=== PATIENT | male | born 1955 | race Caucasian/White ===

== ENCOUNTER 2017-04-07 16:57 | Inpatient (IN) | payer OTHER ==
[~2017-04-07] VITALS: Ht 157.5 cm; Wt 68.0 kg
[2017-04-07] VITALS (26 sets, daily range): BP systolic 66–152; BP diastolic 43–73; PULSE 82–135; RESP 20–29; Ht 157.5 cm; Wt 68.0 kg
[2017-04-07] MEDS ORDERED: SOD CHLORIDE 0.9% 1,000 ML IV ONE ×2 (19:00→20:30)
[2017-04-07] MEDS ORDERED: VANCOMYCIN IV PER PHARMACY XX SCH (19:30)
[2017-04-07] MEDS ORDERED: NORepinephrine 8MG/250 ML (PMX 250 ML ONE (19:31)
[2017-04-07] MEDS ORDERED: NORepinephrine 8MG/250 ML (PMX 250 ML IV SCH (20:00)
[2017-04-07 20:02] LABS: AADO2 Arterial 437.1 mmHg (7.0-24.0); Arterial COHb 0.2 % (0.0-3.0); Arterial Fraction of Oxyhgb 98.5 % (93.0-99.0); Arterial HCO3 19.6 mmol/L (22.0-26.0); Arterial MetHb 0.2 % (0.0-1.5); Arterial Total Hemglobin 9.5 g/dl (12.0-18.0); MODE VENT - AC
[2017-04-07] MEDS ORDERED: VANCOMYCIN 1.25 GM in SOD CHLORIDE 0.9% 250 ML IVPB SCH (20:30)
[2017-04-07 20:51] LABS: HEMATOCRIT 26.8 % (42.0-52.0); HEMOGLOBIN 8.5 g/dl (14.0-18.0); MEAN CORPUSCULAR HEMOGLOBIN 28.2 pg (29.0-33.0); MEAN CORPUSCULAR HGB CONC 31.7 g/dl (32.0-37.0); MEAN PLATELET VOLUME 10.2 fl (7.4-10.4); PLATELET COUNT 340 10^3/UL (140-415); POSITIVE DIFF @See below; RED BLOOD COUNT 3.01 10^6/ul (4.70-6.10); RED CELL DISTRIBUTION WIDTH 15.6 % (11.5-14.5); WHITE BLOOD COUNT 22.1 10^3/ul (4.8-10.8)
[2017-04-07 21:04] LABS: ALBUMIN 2.3 g/dl (3.3-4.9); ALBUMIN/GLOBULIN RATIO 0.53; CALCIUM 9.1 mg/dl (8.4-10.2); CREATININE 1.18 mg/dl (0.61-1.24); MAGNESIUM 1.8 mg/dl (1.7-2.5); POTASSIUM 5.1 mmol/L (3.5-5.1); TOTAL PROTEIN 6.6 g/dl (6.1-8.1)
[2017-04-07 21:35] LABS: THYROID STIMULATING HORMONE 3.78 MIU/L (0.465-4.680)
[2017-04-07 22:04] LABS: AADO2 Arterial 460.5 mmHg (7.0-24.0); Allen Test ACCEPTAB; Arterial Base Excess -10.4 mmol/L (-3.0-3); Arterial COHb 0.3 % (0.0-3.0); Arterial Fraction of Oxyhgb 98.1 % (93.0-99.0); Arterial MetHb 0.3 % (0.0-1.5); Arterial Total Hemglobin 11.3 g/dl (12.0-18.0); Blood Gas Low PEEP Setting 0 cmH2O; MODE VENT - AC
[2017-04-07 22:26] LABS: EOSINOPHILS # 0.7 10^3/ul (0.0-0.5); EOSINOPHILS % (M) 3 % (0.0-7.0); LYMPHOCYTES # 1.5 10^3/ul (0.8-2.9); MONOCYTE # 0.2 10^3/ul (0.3-0.9); MONOCYTES % (M) 1 % (0-11)
[2017-04-07 22:28] LABS: ANISOCYTOSIS 1+ (0-0)
[2017-04-07 22:29] LABS: PLATELET ESTIMATE NORMAL
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
[2017-04-08] VITALS (98 sets, daily range): BP systolic 57–137; BP diastolic 40–80; PULSE 72–130; RESP 19–65
[2017-04-08] MEDS: PIPER-TAZO 3.375 GM IV (PMX) 50 ML IVPB SCH ×2 (00:04→06:23)
[2017-04-08] MEDS ORDERED: PENDING SANTYL ORDER FOR WOUND CARE XX PRN (02:30)
[2017-04-08 03:06] LABS: AADO2 Arterial 594.5 mmHg (7.0-24.0); Allen Test ACCEPTAB; Arterial Base Excess -9.4 mmol/L (-3.0-3); Arterial COHb 0.3 % (0.0-3.0); Arterial Fraction of Oxyhgb 90.1 % (93.0-99.0); Arterial HCO3 18.7 mmol/L (22.0-26.0); Arterial MetHb 0.3 % (0.0-1.5); Arterial Total Hemglobin 10.2 g/dl (12.0-18.0); Blood Gas Low PEEP Setting 0 cmH2O; MODE VENT - AC
[2017-04-08] MEDS ORDERED: SOD CHLORIDE 0.9% 1,000 ML IV SCH (04:00)
[2017-04-08] MEDS ORDERED: PHENYLephrine 40 MG in DEXTROSE 5% 496 ML IV SCH (04:30)
--- NOTE | 2017-04-08 05:44 | RADRPT ---
PROCEDURE: XR Chest. CLINICAL INDICATION: Sepsis TECHNIQUE: 3 AP views of the chest were obtained COMPARISON: CHEST 04/07/2017; CHEST 03/27/2017; CHEST 03/23/2017; CHEST 03/17/2017 FINDINGS: A tracheostomy tube is in place. There is a left upper extremity PICC line with tip along the later al margin of the scapula. There are diffuse bilateral alveolar opacities with small bilateral pleural effusions. No pneumoth orax is seen. The cardiomediastinal silhouette is non enlarged. The osseous structures demonstrate senescent changes. IMPRESSION: 1. Diffuse bilateral alveolar opacities may reflect pulmonary edema or multifocal pneumonia. Findin gs are increased when compared to the prior examination. 2. Small bilateral pleural effusions, not significantly changed. 3. Tubes and lines, as described above. RPTAT: HH .Luzmaria Martinez MD, MD Date Time Electronically viewed and signed by .Luzmaria Martinez MD, on 04/08/2017 05:44 .G/
[2017-04-08 05:46] LABS: ABNORMAL IP MESSAGE 1; HEMOGLOBIN 10.7 g/dl (14.0-18.0); MEAN CORPUSCULAR HEMOGLOBIN 28.1 pg (29.0-33.0); MEAN CORPUSCULAR HGB CONC 30.6 g/dl (32.0-37.0); MEAN CORPUSCULAR VOLUME 91.9 fl (82.0-101.0); MEAN PLATELET VOLUME 10.3 fl (7.4-10.4); NUCLEATED RED BLOOD CELLS% 0.1 /100WBC (0.0-0.0); PLATELET COUNT 425 10^3/UL (140-415); POSITIVE DIFF @See below; RED BLOOD COUNT 3.81 10^6/ul (4.70-6.10); RED CELL DISTRIBUTION WIDTH 16.1 % (11.5-14.5); WHITE BLOOD COUNT 30.1 10^3/ul (4.8-10.8)
[2017-04-08 06:28] LABS: CK-MB 6.48 ng/ml (0.0-2.4); TROPONIN-I < 0.012 ng/ml (0.00-0.12)
[2017-04-08] MEDS ORDERED: SOD CHLORIDE 0.9% 1,000 ML IV ONE ×2 (06:30→12:30)
[2017-04-08] MEDS ORDERED: metroNIDAZOLE 500 MG/NS (PMX) 100 ML IVPB SCH (07:30)
[2017-04-08] MEDS ORDERED: LIDOCAINE 1% (MPF) 5 ML VIAL SC ONE (09:30)
[2017-04-08] MEDS ORDERED: NA BICARBONATE 8.4% 50 ML SYG IV STA (09:53)
[2017-04-08] MEDS ORDERED: NA BICARBONATE 8.4% 50 ML SYG IV ONE (10:00)
[2017-04-08] MEDS: LIDOCAINE 1% (MPF) 5 ML VIAL SC ONE ×2 (10:00→12:50)
[2017-04-08 10:16] LABS: CALCIUM 9.4 mg/dl (8.4-10.2); CREATININE 1.25 mg/dl (0.61-1.24); MAGNESIUM 1.9 mg/dl (1.7-2.5); PHOSPHORUS 8.3 mg/dl (2.5-4.9)
[2017-04-08 10:18] LABS: POTASSIUM 6.5 mmol/L (3.5-5.1)
[2017-04-08] MEDS ORDERED: INSULIN REGULAR, HUMAN 100 UNIT/1 ML 3ML VIAL IV STA (10:22)
[2017-04-08] MEDS ORDERED: CA CHLORIDE 10% 10 ML SYRINGE IV STA (10:22)
[2017-04-08] MEDS ORDERED: ALBUTEROL 0.5% (NEB) 2.5 MG/0.5 ML AMP INH STA (10:22)
[2017-04-08] MEDS ORDERED: CA CHLORIDE 10% 10 ML SYRINGE ONE (10:27)
[2017-04-08] MEDS ORDERED: DEXTROSE 50% 50 ML SYRINGE ONE (10:27)
[2017-04-08] MEDS ORDERED: DEXTROSE 50% 50 ML SYRINGE IV PRN (10:30)
[2017-04-08] MEDS ORDERED: VANCOMYCIN 750 MG in DEXTROSE 5% 150 ML IVPB SCH ×2 (11:00→21:00)
[2017-04-08] MEDS: SODIUM BICARBONATE (IV ADD) 100 MEQ in DEXTROSE 5% 1,000 ML IV SCH ×2 (11:26→21:02)
[2017-04-08 12:14] LABS: AADO2 Arterial 495.9 mmHg (7.0-24.0); Arterial COHb 0.3 % (0.0-3.0); Arterial Fraction of Oxyhgb 98.4 % (93.0-99.0); Arterial MetHb 0.3 % (0.0-1.5); Arterial Total Hemglobin 9.9 g/dl (12.0-18.0); MODE VENT - AC
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
[2017-04-08 12:56] LABS: AADO2 Arterial 389.2 mmHg (7.0-24.0); Arterial Base Excess -8.6 mmol/L (-3.0-3); Arterial COHb 0.3 % (0.0-3.0); Arterial Fraction of Oxyhgb 98.7 % (93.0-99.0); Arterial HCO3 16.6 mmol/L (22.0-26.0); Arterial MetHb 0.4 % (0.0-1.5); Arterial Total Hemglobin 11.1 g/dl (12.0-18.0); MODE VENT - AC
[2017-04-08] MEDS ORDERED: FLUCONAZOLE 100 MG/NS (PMX) 50 ML IVPB SCH (13:00)
[2017-04-08] MEDS: MEROPENEM 500MG/50 ML (PMX) 50 ML IVPB SCH ×2 (13:55→22:11)
[2017-04-08] MEDS: FLUCONAZOLE 100 MG/NS (PMX) 50 ML IVPB SCH (13:56)
--- NOTE | 2017-04-08 14:06 | CONS ---
Date/Time of Note Date/Time of Note DATE: 04/08/17 TIME: 13:56 Assessment/Plan Assessment/Plan Additional Assessment/Plan 61 yo Male with 1Septic Shock 2 Ventilatory Dependant Respiratory Failure S/p trach\ 3Healthcare associated PNA 4 Quadriplegia 5 diabetes mellitus 6 dysphagia status post PEG tube 7 Hyperkalemia 8 ARMANDO in the setting of Above 9 Severe Acidosis, lactic acidosis Pt started Bicarb Rx infusion IV pressors for hypotension, maintain MAPs>65mmHg Insulin Rx given Repeat chemistry pending No acute indication for HD at this time Cont to monitor UO, Electrolytes, renal function, acid base status closely. Consultation Date/Type/Reason Admit Date/Time Apr 07, 2017 at 18:28 Date of Consultation: Apr 08, 2017 Type of Consultation: Renal Reason for Consultation Armando, Hyperkalemia Referring Provider: ORLY LIN MD Hx of Present Illness 61-year-old male who was transferred from [facility] with worsening respiratory failure as well as hypotension. Treatment of Septic Shock. Pt with previous hx of ARMANDO which had resolved however now found to have severe acidosis, hyperkalemia and ARMANDO. Pt with chronic respiratory failure Hx of Trach, Gtube for Dysphagia. Nephrology consulted for ARMANDO, Hyperkalemia and Acid base disturbance. Approx 500cc UO so far. unable due to condition. Subjective hx not possible: pt critical status Constitutional: requiring O2 Past Medical History Medical History: diabetes, hypertension, renal disease Past Surgical History Past Surgical Hx: other (Trach) Family History Significant Family History: no pertinent family hx Social History Alcohol Use: none Drug Use: none Exam/Review of Systems Vital Signs Vitals Vital Signs Date Time Temp Pulse Resp B/P Pulse Ox O2 Delivery O2 Flow Rate FiO2 04/08/17 13:10 109 42 100 100 04/08/17 09:30 102/67 Mechanical Ventilator 04/08/17 07:41 99.8 Intake and Output 04/07/17 04/07/17 04/08/17 15:00 23:00 07:00 Intake Total 5.62 ml 789.74 ml Output Total 300 ml 210 ml Balance -294.38 ml 579.74 ml Exam ENMT: other (Trach) Respiratory: crackles/rales, other (Vent) Cardiovascular: other (tachycardia), No edema Gastrointestinal: distended, soft Extremities: No edema Neurological: unresponsive Skin: No rash or lesions Results Result Diagram: 04/08/17 0509 04/08/17 0509 Results 24 hrs Laboratory Tests Test 04/07/17 19:45 04/07/17 20:25 04/07/17 21:28 04/07/17 21:36 Blood Gas Specimen Source Blood arterial Blood arterial Arterial Blood Date Drawn 04/07/2017 7:45:37 PM 04/07/2017 9:50:52 PM Arterial Blood pH (Temp corrected) 7.156 *L 7.124 *L Arterial Blood pCO2 (Temp correct) 56.9 H 59.3 H Arterial Blood pO2 (Temp corrected) 219.0 H 193.2 H Arterial Blood HCO3 19.6 L 19.0 L Arterial Blood Base Excess -9.0 L -10.4 L Arterial Blood Oxygen Saturation 98.9 H 98.7 H Ronald Test N/A ACCEPTAB Arterial Blood Gas Puncture Site Right Brachial Right Radial Arterial Blood Carboxyhemoglobin 0.2 0.3 Arterial Blood Methemoglobin 0.2 0.3 Blood Gas A-a O2 Differential 437.1 H 460.5 H Oxyhemoglobin Percent 98.5 98.1 Total Hemoglobin 9.5 L 11.3 L Blood Gas Temperature 37.0 37.0 Blood Gas Respiration Rate 10.0 24.0 Blood Gas Actual Respiration Rate 21 24 Blood Gas Modality VENT - AC VENT - AC FiO2 100.0 100.0 Blood Gas Tidal Volume 600.0 600.0 Blood Gas Low PEEP Setting 5.0 0 Blood Gas Critical Value Read Back m Marlee Carson rn, MD Blood Gas Notified Whom UP [place] Blood Gas Notified Time 04/07/2017 7:57:17 PM 04/07/2017 10:03:59 PM White Blood Count 22.1 #H Red Blood Count 3.01 L Hemoglobin 8.5 L Hematocrit 26.8 L Mean Corpuscular Volume 89.0 Mean Corpuscular Hemoglobin 28.2 L Mean Corpuscular Hemoglobin Concent 31.7 L Red Cell Distribution Width 15.6 H Platelet Count 340 Mean Platelet Volume 10.2 Neutrophils % Segmented Neutrophils % (Manual) 76 Band Neutrophils % (Manual) 13 H Lymphocytes % (Manual) 7 L Monocytes % (Manual) 1 Eosinophils % Eosinophils % (Manual) 3 Nucleated Red Blood Cells % 0.0 Neutrophils # Neutrophils # (Manual) 17.4 H Band Neutrophils # 2.8 H Absolute Lymphocytes (Manual) 1.5 Lymphocytes # 1.5 Monocytes # 0.2 L Absolute Monocytes (Manual) 0.2 L Eosinophils # 0.7 H Platelet Estimate NORMAL Anisocytosis 1+ Macrocytosis 1+ Sodium Level 139 Potassium Level 5.1 Chloride Level 107 Carbon Dioxide Level 22 Anion Gap 15 Blood Urea Nitrogen 45 H Creatinine 1.18 Glucose Level 186 Lactic Acid Level 1.9 Calcium Level 9.1 Magnesium Level 1.8 Total Bilirubin 0.0 L Direct Bilirubin 0.00 Indirect Bilirubin 0.0 Aspartate Amino Transf (AST/SGOT) 37 Alanine Aminotransferase (ALT/SGPT) 68 Alkaline Phosphatase 532 H Total Protein 6.6 Albumin 2.3 L Globulin 4.30 H Albumin/Globulin Ratio 0.53 Thyroid Stimulating Hormone (TSH) 3.780 Bedside Glucose 172 Test 04/08/17 03:00 04/08/17 05:09 04/08/17 05:16 04/08/17 08:00 Blood Gas Specimen Source Blood arterial Blood arterial Arterial Blood Date Drawn 04/08/2017 2:50:04 AM 04/08/2017 8:15:01 AM Arterial Blood pH (Temp corrected) 7.179 *L 7.216 *L Arterial Blood pCO2 (Temp correct) 51.4 H 40.4 Arterial Blood pO2 (Temp corrected) 67.1 L 176.7 H Arterial Blood HCO3 18.7 L 16.0 L Arterial Blood Base Excess -9.4 L -11.0 L Arterial Blood Oxygen Saturation 90.6 L 99.0 H Ronald Test ACCEPTAB N/A Arterial Blood Gas Puncture Site Right Brachial Right Brachial Arterial Blood Carboxyhemoglobin 0.3 0.3 Arterial Blood Methemoglobin 0.3 0.3 Blood Gas A-a O2 Differential 594.5 H 495.9 H Oxyhemoglobin Percent 90.1 L 98.4 Total Hemoglobin 10.2 L 9.9 L Blood Gas Temperature 37.0 37.0 Blood Gas Respiration Rate 24.0 24.0 Blood Gas Actual Respiration Rate 36 24 Blood Gas Modality VENT - AC VENT - AC FiO2 100.0 100.0 Blood Gas Tidal Volume 600.0 600.0 Blood Gas Low PEEP Setting 0 Blood Gas Critical Value Read Back LAVONNE MCKINNON Blood Gas Notified Whom JUNAID CAMPUZANO Blood Gas Notified Time 04/08/2017 3:06:25 AM 04/08/2017 8:32:24 AM White Blood Count 30.1 #H Red Blood Count 3.81 #L Hemoglobin 10.7 #L Hematocrit 35.0 #L Mean Corpuscular Volume 91.9 Mean Corpuscular Hemoglobin 28.1 L Mean Corpuscular Hemoglobin Concent 30.6 L Red Cell Distribution Width 16.1 H Platelet Count 425 #H Mean Platelet Volume 10.3 Neutrophils % Lymphocytes % Monocytes % Eosinophils % Basophils % Nucleated Red Blood Cells % 0.1 H Neutrophils # Lymphocytes # Monocytes # Eosinophils # Basophils # Nucleated Red Blood Cells # Sodium Level 142 Potassium Level 6.5 *H Chloride Level 112 H Carbon Dioxide Level 16 L Anion Gap 21 H Blood Urea Nitrogen 47 H Creatinine 1.25 H Glucose Level 63 #L Lactic Acid Level 4.5 *H Calcium Level 9.4 Phosphorus Level 8.3 #H Magnesium Level 1.9 Creatinine Kinase MB (Mass) 6.48 H Troponin I < 0.012 Test 04/08/17 11:01 04/08/17 12:00 04/08/17 12:34 Lactic Acid Level 5.2 *H Blood Gas Specimen Source Blood arterial Arterial Blood Date Drawn 04/08/2017 12:35:04 PM Arterial Blood pH (Temp corrected) 7.316 L Arterial Blood pCO2 (Temp correct) 33.3 L Arterial Blood pO2 (Temp corrected) 290.5 H Arterial Blood HCO3 16.6 L Arterial Blood Base Excess -8.6 L Arterial Blood Oxygen Saturation 99.4 H Ronald Test N/A Arterial Blood Gas Puncture Site Right Brachial Arterial Blood Carboxyhemoglobin 0.3 Arterial Blood Methemoglobin 0.4 Blood Gas A-a O2 Differential 389.2 H Oxyhemoglobin Percent 98.7 Total Hemoglobin 11.1 L Blood Gas Temperature 37.0 Blood Gas Respiration Rate 24.0 Blood Gas Actual Respiration Rate 40 Blood Gas Modality VENT - AC FiO2 100.0 Blood Gas Tidal Volume 600.0 Blood Gas Notified Whom CW Blood Gas Notified Time 04/08/2017 12:55:59 PM Bedside Glucose 87 Imaging Free Text/Dictation IMPRESSION: 1. Diffuse bilateral alveolar opacities may reflect pulmonary edema or multifocal pneumonia. Findings are increased when compared to the prior examination. 2. Small bilateral pleural effusions, not significantly changed. 3. Tubes and lines, as described above. Medications Medications Current Medications Norepinephrine/ Dextrose (Levophed/D5W) 500 ml @ 1.87 mls/hr TITRATE IV Last administered on 04/08/17 04:45; Admin Dose 56.25 MLS/HR; Start 04/07/17 at 20 :00 Miscellaneous Information This patient olson... PRN PRN XX WOUND CARE; Start at 02:30 Phenylephrine HCl 40 mg/Dextrose 500 ml @ 75 mls/hr TITRATE IV ; Start at 04:30 Sodium Bicarbonate/ Dextrose (Na Bicarb/D5W) 1,100 ml @ 150 mls/hr Q7H20M IV Last administered on 04/08/17 11:26; Admin Dose 150 MLS/HR; Start 04/08/17 at 11:00 Dextrose ONCE PRN IV POC BLOOD GLUCOSE <250 MG/DL Last administered on 10:39; Admin Dose 10 ML; Start 04/08/17 at 10:30; Stop 04/08/17 at 23:00 Linezolid 300 ml @ 300 mls/hr Q12 IVPB ; Start 04/08/17 at 21:00 Meropenem/Sodium Chloride 50 ml @ 100 mls/hr Q8 IVPB ; Start 04/08/17 at 14:00 Fluconazole/ Sodium Chloride (Diflucan 100 Mg/ NS (Pmx)) 50 ml @ 50 mls/hr Q24H IVPB ; Start 04/08/17 at 12:00 CONCETTA LOCKE MD Apr 08, 2017 14:06
[2017-04-08 14:34] LABS: CREATININE 1.41 mg/dl (0.61-1.24); POTASSIUM 5.2 mmol/L (3.5-5.1)
[2017-04-08 14:35] LABS: ALBUMIN 1.9 g/dl (3.3-4.9); TOTAL PROTEIN 5.3 g/dl (6.1-8.1)
--- NOTE | 2017-04-08 15:33 | CONS ---
Date/Time of Note Date/Time of Note DATE: 04/08/17 TIME: 15:25 Assessment/Plan Assessment/Plan Additional Assessment/Plan Shock likely secondary to sepsis Hypotension requiring IV pressor Respiratory failure, vent dependent Paroxysmal atrial fibrillation Preserved ejection fraction Pulmonary hypertension Acute kidney injury Encephalopathy -Patient transferred to ICU secondary to worsening hypotension requiring IV pressor. Titrate IV pressor to maintain SBP greater than 90 and/or map above 60. Antibiotics as per infectious disease. Continue to hold all antihypertensive medications. Vent management as per our pulmonary colleagues. Patient with recent episode of paroxysmal atrial fibrillation at [place], currently in sinus rhythm. Would restart amiodarone to help maintain in sinus rhythm. -Greater than 32 minutes of critical care time taken in the care of this patient Consultation Date/Type/Reason Admit Date/Time Apr 07, 2017 at 18:28 Initial Consult Date 04/08/17 Type of Consultation: cv Referring Provider: ORLY LIN MD 24 HR Interval Summary Free Text/Dictation Patient transferred to ICU secondary to worsening hypotension requiring IV pressor. The night prior to transfer, patient with paroxysmal atrial fibrillation and started on amiodarone yesterday. Exam/Review of Systems Vital Signs Vitals Vital Signs Date Time Temp Pulse Resp B/P Pulse Ox O2 Delivery O2 Flow Rate FiO2 04/08/17 13:10 109 42 100 100 04/08/17 09:30 102/67 Mechanical Ventilator 04/08/17 07:41 99.8 Intake and Output 04/07/17 04/07/17 04/08/17 15:00 23:00 07:00 Intake Total 5.62 ml 789.74 ml Output Total 300 ml 210 ml Balance -294.38 ml 579.74 ml Exam Awake, no response to verbal stimuli, no apparent distress Head: normocephalic Neck: other (Tracheostomy) Respiratory: other (Coarse breath sounds bilaterally, no wheezing or rhonchi) Cardiovascular: other (S1-S2 heard), regular rate and rhythm, systolic murmur Gastrointestinal: bowel sounds, other (No grimacing with palpation), soft Extremities: edema Results Result Diagram: 04/08/17 0509 04/08/17 1355 Results 24 hrs Laboratory Tests Test 04/07/17 19:45 04/07/17 20:25 04/07/17 21:28 04/07/17 21:36 Blood Gas Specimen Source Blood arterial Blood arterial Arterial Blood Date Drawn 04/07/2017 7:45:37 PM 04/07/2017 9:50:52 PM Arterial Blood pH (Temp corrected) 7.156 *L 7.124 *L Arterial Blood pCO2 (Temp correct) 56.9 H 59.3 H Arterial Blood pO2 (Temp corrected) 219.0 H 193.2 H Arterial Blood HCO3 19.6 L 19.0 L Arterial Blood Base Excess -9.0 L -10.4 L Arterial Blood Oxygen Saturation 98.9 H 98.7 H Ronald Test N/A ACCEPTAB Arterial Blood Gas Puncture Site Right Brachial Right Radial Arterial Blood Carboxyhemoglobin 0.2 0.3 Arterial Blood Methemoglobin 0.2 0.3 Blood Gas A-a O2 Differential 437.1 H 460.5 H Oxyhemoglobin Percent 98.5 98.1 Total Hemoglobin 9.5 L 11.3 L Blood Gas Temperature 37.0 37.0 Blood Gas Respiration Rate 10.0 24.0 Blood Gas Actual Respiration Rate 21 24 Blood Gas Modality VENT - AC VENT - AC FiO2 100.0 100.0 Blood Gas Tidal Volume 600.0 600.0 Blood Gas Low PEEP Setting 5.0 0 Blood Gas Critical Value Read Back m Marlee Carson rn, MD Blood Gas Notified Whom UP [place] Blood Gas Notified Time 04/07/2017 7:57:17 PM 04/07/2017 10:03:59 PM White Blood Count 22.1 #H Red Blood Count 3.01 L Hemoglobin 8.5 L Hematocrit 26.8 L Mean Corpuscular Volume 89.0 Mean Corpuscular Hemoglobin 28.2 L Mean Corpuscular Hemoglobin Concent 31.7 L Red Cell Distribution Width 15.6 H Platelet Count 340 Mean Platelet Volume 10.2 Neutrophils % Segmented Neutrophils % (Manual) 76 Band Neutrophils % (Manual) 13 H Lymphocytes % (Manual) 7 L Monocytes % (Manual) 1 Eosinophils % Eosinophils % (Manual) 3 Nucleated Red Blood Cells % 0.0 Neutrophils # Neutrophils # (Manual) 17.4 H Band Neutrophils # 2.8 H Absolute Lymphocytes (Manual) 1.5 Lymphocytes # 1.5 Monocytes # 0.2 L Absolute Monocytes (Manual) 0.2 L Eosinophils # 0.7 H Platelet Estimate NORMAL Anisocytosis 1+ Macrocytosis 1+ Sodium Level 139 Potassium Level 5.1 Chloride Level 107 Carbon Dioxide Level 22 Anion Gap 15 Blood Urea Nitrogen 45 H Creatinine 1.18 Glucose Level 186 Lactic Acid Level 1.9 Calcium Level 9.1 Magnesium Level 1.8 Total Bilirubin 0.0 L Direct Bilirubin 0.00 Indirect Bilirubin 0.0 Aspartate Amino Transf (AST/SGOT) 37 Alanine Aminotransferase (ALT/SGPT) 68 Alkaline Phosphatase 532 H Total Protein 6.6 Albumin 2.3 L Globulin 4.30 H Albumin/Globulin Ratio 0.53 Thyroid Stimulating Hormone (TSH) 3.780 Bedside Glucose 172 Test 04/08/17 03:00 04/08/17 05:09 04/08/17 05:16 04/08/17 08:00 Blood Gas Specimen Source Blood arterial Blood arterial Arterial Blood Date Drawn 04/08/2017 2:50:04 AM 04/08/2017 8:15:01 AM Arterial Blood pH (Temp corrected) 7.179 *L 7.216 *L Arterial Blood pCO2 (Temp correct) 51.4 H 40.4 Arterial Blood pO2 (Temp corrected) 67.1 L 176.7 H Arterial Blood HCO3 18.7 L 16.0 L Arterial Blood Base Excess -9.4 L -11.0 L Arterial Blood Oxygen Saturation 90.6 L 99.0 H Ronald Test ACCEPTAB N/A Arterial Blood Gas Puncture Site Right Brachial Right Brachial Arterial Blood Carboxyhemoglobin 0.3 0.3 Arterial Blood Methemoglobin 0.3 0.3 Blood Gas A-a O2 Differential 594.5 H 495.9 H Oxyhemoglobin Percent 90.1 L 98.4 Total Hemoglobin 10.2 L 9.9 L Blood Gas Temperature 37.0 37.0 Blood Gas Respiration Rate 24.0 24.0 Blood Gas Actual Respiration Rate 36 24 Blood Gas Modality VENT - AC VENT - AC FiO2 100.0 100.0 Blood Gas Tidal Volume 600.0 600.0 Blood Gas Low PEEP Setting 0 Blood Gas Critical Value Read Back LAVONNE MCKINNON Blood Gas Notified Whom JUNAID CAMPUZANO Blood Gas Notified Time 04/08/2017 3:06:25 AM 04/08/2017 8:32:24 AM White Blood Count 30.1 #H Red Blood Count 3.81 #L Hemoglobin 10.7 #L Hematocrit 35.0 #L Mean Corpuscular Volume 91.9 Mean Corpuscular Hemoglobin 28.1 L Mean Corpuscular Hemoglobin Concent 30.6 L Red Cell Distribution Width 16.1 H Platelet Count 425 #H Mean Platelet Volume 10.3 Neutrophils % Lymphocytes % Monocytes % Eosinophils % Basophils % Nucleated Red Blood Cells % 0.1 H Neutrophils # Lymphocytes # Monocytes # Eosinophils # Basophils # Nucleated Red Blood Cells # Sodium Level 142 Potassium Level 6.5 *H Chloride Level 112 H Carbon Dioxide Level 16 L Anion Gap 21 H Blood Urea Nitrogen 47 H Creatinine 1.25 H Glucose Level 63 #L Lactic Acid Level 4.5 *H Calcium Level 9.4 Phosphorus Level 8.3 #H Magnesium Level 1.9 Creatinine Kinase MB (Mass) 6.48 H Troponin I < 0.012 Test 04/08/17 11:01 04/08/17 12:00 04/08/17 12:34 04/08/17 13:55 Lactic Acid Level 5.2 *H Blood Gas Specimen Source Blood arterial Arterial Blood Date Drawn 04/08/2017 12:35:04 PM Arterial Blood pH (Temp corrected) 7.316 L Arterial Blood pCO2 (Temp correct) 33.3 L Arterial Blood pO2 (Temp corrected) 290.5 H Arterial Blood HCO3 16.6 L Arterial Blood Base Excess -8.6 L Arterial Blood Oxygen Saturation 99.4 H Ronald Test N/A Arterial Blood Gas Puncture Site Right Brachial Arterial Blood Carboxyhemoglobin 0.3 Arterial Blood Methemoglobin 0.4 Blood Gas A-a O2 Differential 389.2 H Oxyhemoglobin Percent 98.7 Total Hemoglobin 11.1 L Blood Gas Temperature 37.0 Blood Gas Respiration Rate 24.0 Blood Gas Actual Respiration Rate 40 Blood Gas Modality VENT - AC FiO2 100.0 Blood Gas Tidal Volume 600.0 Blood Gas Notified Whom CW Blood Gas Notified Time 04/08/2017 12:55:59 PM Bedside Glucose 87 Sodium Level 144 Potassium Level 5.2 H Chloride Level 112 H Carbon Dioxide Level 18 L Anion Gap 19 H Blood Urea Nitrogen 43 H Creatinine 1.41 H Glucose Level 93 Calcium Level 9.0 Total Bilirubin 0.0 L Direct Bilirubin 0.00 Indirect Bilirubin 0.0 Aspartate Amino Transf (AST/SGOT) 36 Alanine Aminotransferase (ALT/SGPT) 57 Alkaline Phosphatase 416 H Total Protein 5.3 #L Albumin 1.9 L Medications Medications Current Medications Norepinephrine/ Dextrose (Levophed/D5W) 500 ml @ 1.87 mls/hr TITRATE IV Last administered on 04/08/17t 04:45; Admin Dose 56.25 MLS/HR; Start 04/07/17 at 20 :00 Miscellaneous Information This patient olson... PRN PRN XX WOUND CARE; Start at 02:30 Phenylephrine HCl 40 mg/Dextrose 500 ml @ 75 mls/hr TITRATE IV ; Start at 04:30 Sodium Bicarbonate/ Dextrose (Na Bicarb/D5W) 1,100 ml @ 150 mls/hr Q7H20M IV Last administered on 04/08/17 11:26; Admin Dose 150 MLS/HR; Start 04/08/17 at 11:00 Dextrose ONCE PRN IV POC BLOOD GLUCOSE <250 MG/DL Last administered on 10:39; Admin Dose 10 ML; Start 04/08/17 at 10:30; Stop 04/08/17 at 23:00 Linezolid 300 ml @ 300 mls/hr Q12 IVPB ; Start 04/08/17 at 21:00 Meropenem/Sodium Chloride 50 ml @ 100 mls/hr Q8 IVPB Last administered on 13:55; Admin Dose 100 MLS/HR; Start 04/08/17 at 14:00 Fluconazole/ Sodium Chloride (Diflucan 100 Mg/ NS (Pmx)) 50 ml @ 50 mls/hr Q24H IVPB Last administered on 04/08/17 13:56; Admin Dose 50 MLS/HR; Start at 12:00 IV Flush (NS 10 ml) 10 ml PRN PRN IV IV PROTOCOL; Start 04/08/17 at 14:00 José Miguel Lawrence DO Apr 08, 2017 15:33
--- NOTE | 2017-04-08 16:54 | RADRPT ---
PROCEDURE: XR Chest. CLINICAL INDICATION: PICC line placement TECHNIQUE: Single frontal chest x-ray. COMPARISON: CHEST 04/07/2017 FINDINGS: Right-sided PICC line tip is in the SVC. Patchy bilateral pulmonary opacities are grossly unchanged. No pneumothorax is identified. Tracheostomy tube remains in place. Cardiomediastinal silhouette is within normal limits. The osseous structures are unremarkable. IMPRESSION: 1. Right-sided PICC line in good position. 2. Nonspecific patchy bilateral pulmonary opacities are again seen, grossly unchanged. 3. Tracheostomy tube remains in place. RPTAT: QQ .Kaz Mcneill MD, MD Date Time Electronically viewed and signed by .Kaz Mcneill MD, on 04/08/2017 13:34 .R/
--- NOTE | 2017-04-08 16:54 | CONS ---
DATE OF ADMISSION: 04/07/2017 DATE OF CONSULTATION: TYPE OF CONSULTATION: Nephrology. REASON FOR CONSULTATION: Acute kidney injury. REQUESTING PHYSICIAN: Dr. Quinones. HISTORY OF PRESENT ILLNESS: A 61-year-old male with a past medical history of ventilatory dependent respiratory failure, history of encephalopathy, dysphagia, who was transferred from [facility] to [facility] due to septic shock. The patient was noted to be in resp iratory failure at [place] and was hypotensive. As a result, he was brought in to the [facility] ICU. In the intensive care unit, the patient was noted to be hypotensive. He was started on broad spectrum antibiotics and IV fluids. The patient was also noted to have elevated lactic acid l evel. In terms of patient's renal history, the patient has had minimal urinary output in the last 24 hours , approximately 10 to 15 mL. The patient has no reports of any hemoptysis, hematemesis or hematoche candace. PAST MEDICAL HISTORY: As stated above, history of ventilator dependent respiratory failure, history of quadriplegia, encephalopathy, decubitus, diabetes, hypertension. PAST SURGICAL HISTORY: Status post trach, status post PEG. FAMILY HISTORY: Noncontributory. SOCIAL HISTORY: The patient is unable to provide. ALLERGIES: NO KNOWN DRUG ALLERGIES. MEDICATIONS: Have been reviewed. REVIEW OF SYSTEMS: Unable to do adequate review of systems as patient is obtunded. Pertinent posit allison stated in HPI, otherwise negative after reviewing medical records and speaking to hospital sta f. PHYSICAL EXAMINATION: VITAL SIGNS: Blood pressure is 100/68, respirations 37, pulse 126, temperature 99.8. HEENT: Head is normocephalic. Pupils are reactive to light. NECK: Shows the trach. HEART: Regular rate. LUNGS: Show diminished breath sounds at base. ABDOMEN: Soft, nontender to palpation. No rebound or guarding. EXTREMITIES: Negative for clubbing, cyanosis, no edema. DERMATOLOGIC: No rashes. MUSCULOSKELETAL: Positive wound. NEUROLOGIC: The patient is obtunded. LABORATORY DATA: Shows sodium 139, potassium 5.1, chloride 107, BUN 45, creatinine 1.18. Lactic ac id 4.5. White count 13.1, hemoglobin 10.7, platelet count is 425. The patient's chest x-ray was re viewed, shows multifocal pneumonia. ASSESSMENT AND PLAN: This is a 61-year-old male who presents with: 1. Oliguric acute kidney injury with unknown baseline creatinine. Etiology of acute kidney injury is likely secondary to sepsis, possible acute tubular necrosis. Plan at this point is to check a UA with microanalysis. Check urine electrolytes. We will check renal ultrasound. Would recommend to continue treating underlying septic shock. Continue IV fluids, IV antibiotics, maintain MAP above 65. Would otherwise continue current treatment plan, supportive care, renally dose all meds. 2. Anemia. We will monitor hemoglobin and hematocrit levels. 3. Mineral bone disorder. Monitor calcium and phosphorus levels. 4. Mixed acid base disorder. The patient has a metabolic acidosis and respiratory acidosis. [facility]. The patient's pCO2 level is inappropriately elevated for this level of a cidemia. Would consider increasing respiratory rate and tidal volume. If the patient's respiratory rate cannot improve, will start patient on a bicarbonate drip if necessary. Continue to monitor c losely. 5. Septic shock secondary to healthcare-associated pneumonia. Continue current medical management. Continue IV fluids, pressor support and antibiotic therapy. Follow up with infectious disease. 6. Ventilator dependent respiratory failure. Vent settings and ABG was reviewed. Continue to [facility]. Follow up with pulmonary. 7. Encephalopathy, etiology toxic metabolic. 8. Diabetes. Continue current insulin regimen. 9. Dysphagia status post percutaneous esophageal gastrostomy. Please note I spent over 35 minutes of critical care time with this patient. Thank you, Dr. Quinones, for this interesting consult. It will be a pleasure to follow patient with you throughout the hospital course. Dictated By: FRANCESCO NETTLES DO NR/NTS Conf#: [id number] DID#: [id number] CC: MARLENA CARBAJAL MD; MITESH QUIONNES MD;*EndCC*
--- NOTE | 2017-04-08 16:55 | CONS ---
DATE OF ADMISSION: 04/07/2017 DATE OF CONSULTATION: 04/08/2017 REASON FOR CONSULTATION: Ventilator management. Thank you, Dr. Carbajal, for this consultation. HISTORY OF PRESENT ILLNESS: This is a 61-year-old gentleman with vent dependent respiratory failure with encephalopathy, transferred from [facility] where he was being treated for he althcare-associated pneumonia. Yesterday, he transferred to intensive care unit for worsening menta tion, worsening blood pressure. This morning, found to have worsening acidosis. Primary care team discussed with the patient's next of kin. The patient remained DO NOT RESUSCITATE, which is appropr iate given significant comorbidities. PAST MEDICAL HISTORY: As above. MEDICATIONS: Per chart. ALLERGIES: NONE. SYSTEMS REVIEW: A 12-point review of systems unable to perform. PHYSICAL EXAMINATION: GENERAL: Chronically ill appearing gentleman with contractures. VITAL SIGNS: Currently afebrile, pulse is 117, blood pressure 100/60, O2 sat 96%, FIO2 of 80% via t racheostomy. NECK: Trach site appears clean and intact. CARDIAC: S1, S2, no added sounds or murmurs. CHEST: Diminished air entry bilaterally. ABDOMEN: Soft, nontender. No guarding or rebound. EXTREMITIES: No cyanosis, clubbing, edema. NEUROLOGIC: Unable to assess. LABORATORY DATA: White count 30.1, hemoglobin 10.7, platelets of 425. Chemistry: Potassium 6.5, B UN 16. Lactic acid 4.5. ABG: pH 7.17, pCO2 of 51, PO2 of 67. IMPRESSION AND PLAN: 1. Acute on chronic hypoxemic and hypercapnic respiratory failure. 2. Severe metabolic acidosis. 3. Septic shock with multiorgan failure. 4. History of encephalopathy. The patient will require: 1. Vasopressor support. 2. Broad-spectrum antibiotics. 3. Correction of metabolic acidosis with intravenous bicarbonate. 4. A family conference regarding goals of care. Overall prognosis is extremely poor. The patient is not expected to survive this admission. Dictated By: JUAN TORIBIO MD SV/YOUSUF Conf#: [id number] DID#: [id number] CC: JUAN TORIBIO MD; MARLENA CARBAJAL MD;*EndCC*
--- NOTE | 2017-04-08 16:56 | RADRPT ---
PROCEDURE: Ultrasound proximal upper extremity for PICC placement CLINICAL INDICATION: PICC placement TECHNIQUE: Sonographic evaluation of the proximal right upper extremity vessels was performed utiliz ing a high-frequency linear transducer. COMPARISON: None available FINDINGS: Limited evaluation of the proximal upper extremity for vascular access for PICC placement. Grossly, no abnormality is seen. IMPRESSION: 1. Unremarkable limited proximal right upper extremity ultrasound for PICC placement. RPTAT: QQ .Kaz Mcneill MD, MD Date Time Electronically viewed and signed by .Kaz Mcneill MD, MD on 04/08/2017 15:04 .R/
[2017-04-08 17:29] LABS: ADD UMIC YES; UR ASCORBIC ACID NEGATIVE (NEGATIVE); UR BACTERIA FEW /HPF (NONE SEEN); UR BILIRUBIN (Dip) NEGATIVE (NEGATIVE); UR BLOOD (Dip) 1+ mg/dL (NEGATIVE); UR CLARITY SLIGHTLY CLOUDY (CLEAR); UR COLOR YELLOW (YELLOW); UR GLUCOSE (Dip) NEGATIVE (NEGATIVE); UR KETONES (Dip) NEGATIVE (NEGATIVE); UR LEUKOCYTE ESTERASE (Dip) TRACE Leu/ul (NEGATIVE); UR NITRITE (Dip) NEGATIVE (NEGATIVE); UR RBC 5 /HPF (0-5); UR SPECIFIC GRAVITY (Dip) 1.005 (1.003-1.030); UR TOTAL PROTEIN (Dip) NEGATIVE (NEGATIVE); UR UROBILINOGEN (Dip) NEGATIVE (NEGATIVE)
[2017-04-08] MEDS ORDERED: SOD CHLORIDE 0.9% 100 ML ONE (18:01)
--- NOTE | 2017-04-08 18:29 | RADRPT ---
PROCEDURE: Retroperitoneal ultrasound. CLINICAL INDICATION: Acute renal failure TECHNIQUE: Jones scale and color doppler ultrasound images of the retroperitoneum, kidneys, urinary bladder COMPARISON: No prior studies are available for comparison. FINDINGS: Kidneys: Right length (cm) : 12.7 Left length (cm) : 12.3 Right cortical thickness: Normal. Left cortical thickness: Normal. Echogenicity: Increased bilaterally Hydronephrosis: None. Renal calculi: None. Focal lesions: None. Free fluid/ascites: None. Abdominal aorta: Not visualized by the head turning machine operator. Bladder: Not visualized due to under distension Other findings: None. IMPRESSION: Increased parenchymal echogenicity of the kidneys is observed, suggestive of medical renal disease. No hydronephrosis. RPTAT: AADD .Ian Dillon MD, Date Time Electronically viewed and signed by .Ian Dillon MD, on 04/08/2017 18:29 .B/
[2017-04-08] MEDS: LINEZOLID 600 MG/D5W (PMX) 300 ML IVPB SCH (21:01)
[2017-04-08] MEDS: AMIODARONE 200 MG TAB NGT SCH (21:02)
--- NOTE | 2017-04-08 21:15 | PN ---
DATE: 04/08/2017 SUBJECTIVE: The patient was transferred from [facility] secondary to septic shock. His noncom municative, on pressors, tachypneic, in no distress. VITAL SIGNS: Temperature 99.8, pulse 117, respirations 37, blood pressure 102/67, saturation 100%. LABORATORY DATA: WBC 30.1, H and H 10.7 and 35, platelets 425, BUN 47, creatinine 1.25. Lactic aci d 4.5. MICROBIOLOGY: Stool for C. diff was negative. DIAGNOSTICS: Chest x-ray from yesterday revealed diffuse bilateral alveolar opacities, may reflect pulmonary edema or multifocal pneumonia. Findings are increased when compared to prior examination. INDWELLINGS: Trach, PEG, [place]. ANTIMICROBIALS: The patient is on IV vancomycin, Flagyl and Zosyn. PHYSICAL EXAMINATION: GENERAL: This is a chronically ill-appearing, middle-aged man who is in no distress. HEENT: Head atraumatic, normocephalic. Sclerae anicteric. Buccal mucosa dry. NECK: Supple. CHEST: Rise symmetrical. Breath sounds diminished to bases with scattered rhonchi. HEART: S1, S2. ABDOMEN: Soft, bowel tones present. EXTREMITIES: Wasted, contractured. SKIN: With multiple unstageable necrotic wounds. ASSESSMENT: 1. Severe sepsis with shock and multisystem organ failure. 2. Acute on chronic respiratory failure. 3. Pneumonia. 4. Multiple unstageable decubiti with wound culture grew Klebsiella, pseudomonas and vancomycin res istant enterococcus. 5. Dysphagia. 6. Chronic encephalopathy. 7. Severe lactic acidosis, remains on bicarb drip. PLAN: 1. We are going to change vancomycin and Zosyn to meropenem and Zyvox. We will keep him on Flagyl, add fluconazole. Repeat blood and urine cultures. 2. The patient is DNR status. Prognosis is guarded. Dictated By: ANA VALDES SALES ENABLEMENT CONSULTANT for SHEA BRANNON/YOUSUF Conf#: [id number] DID#: [id number]
[2017-04-09] VITALS (85 sets, daily range): BP systolic 85–140; BP diastolic 54–87; PULSE 102–127; RESP 20–47
[2017-04-09] MEDS: SODIUM BICARBONATE (IV ADD) 100 MEQ in DEXTROSE 5% 1,000 ML IV SCH ×2 (01:40→05:38)
[2017-04-09] MEDS: MEROPENEM 500MG/50 ML (PMX) 50 ML IVPB SCH ×3 (05:34→21:59)
[2017-04-09 06:27] LABS: ABNORMAL IP MESSAGE 1; HEMATOCRIT 22.7 % (42.0-52.0); HEMOGLOBIN 7.2 g/dl (14.0-18.0); MEAN CORPUSCULAR HEMOGLOBIN 27.9 pg (29.0-33.0); MEAN CORPUSCULAR HGB CONC 31.7 g/dl (32.0-37.0); MEAN PLATELET VOLUME 9.8 fl (7.4-10.4); PLATELET COUNT 255 10^3/UL (140-415); POSITIVE DIFF @See below; RED BLOOD COUNT 2.58 10^6/ul (4.70-6.10); RED CELL DISTRIBUTION WIDTH 16.1 % (11.5-14.5); WHITE BLOOD COUNT 24.6 10^3/ul (4.8-10.8)
[2017-04-09 07:01] LABS: MAGNESIUM 1.5 mg/dl (1.7-2.5); PHOSPHORUS 5.9 mg/dl (2.5-4.9)
[2017-04-09 07:16] LABS: ALBUMIN 2.2 g/dl (3.3-4.9); ALBUMIN/GLOBULIN RATIO 0.55; BILIRUBIN,INDIRECT 0.1 mg/dl (0-1.1); BILIRUBIN,TOTAL 0.1 mg/dl (0.2-1.3); CALCIUM 9.2 mg/dl (8.4-10.2); CREATININE 1.68 mg/dl (0.61-1.24); POTASSIUM 4.4 mmol/L (3.5-5.1); TOTAL PROTEIN 6.2 g/dl (6.1-8.1)
[2017-04-09] MEDS ORDERED: MAGNESIUM SULFATE 2 GM/50 ML 50 ML IVPB ONE (08:30)
[2017-04-09 08:34] LABS: AADO2 Arterial 368.3 mmHg (7.0-24.0); Arterial Base Excess -3.2 mmol/L (-3.0-3); Arterial COHb 0.3 % (0.0-3.0); Arterial Fraction of Oxyhgb 98.5 % (93.0-99.0); Arterial HCO3 20.2 mmol/L (22.0-26.0); Arterial MetHb 0.2 % (0.0-1.5); Arterial Total Hemglobin 8.1 g/dl (12.0-18.0); Blood Gas Low PEEP Setting 0 cmH2O; MODE VENT - AC
[2017-04-09 08:39] LABS: ANISOCYTOSIS 1+ (0-0); EOSINOPHILS % (M) 2 % (0-7); MICROCYTOSIS 1+ (0-0); MONOCYTES % (M) 3 % (0-11); PLATELET ESTIMATE NORMAL
--- NOTE | 2017-04-09 08:39 | RADRPT ---
PROCEDURE: XR Chest. CLINICAL INDICATION: Pneumonia versus CHF. TECHNIQUE: Single AP portable chest. COMPARISON: No prior Chest x-ray FINDINGS: The cardiomediastinal silhouette is within normal limits of size. Right PICC line and tracheostomy t ube in stable position. grossly stable patchy interstitial alveolar air space opacities with increas ing left pleural effusion suggestive of CHF. No pneumothorax. The osseous structures and soft tissue s are unremarkable. IMPRESSION: 1. Stable interstitial and alveolar air space opacities with increasing left pleural effusions sugge stive of worsening CHF. Superimposed infectious process cannot be excluded. 2. Tubes and lines in stable position . RPTAT:AAJJ Physician Devante Date Time Electronically viewed and signed by Physician Devante on 04/09/2017 08:39 TRUNG/
[2017-04-09] MEDS: SOD CHLORIDE 0.9% 1,000 ML IV SCH ×2 (09:13→20:37)
[2017-04-09] MEDS: LINEZOLID 600 MG/D5W (PMX) 300 ML IVPB SCH ×2 (09:13→20:36)
[2017-04-09] MEDS: AMIODARONE 200 MG TAB NGT SCH ×2 (09:14→20:36)
--- NOTE | 2017-04-09 09:25 | CONS ---
Date/Time of Note Date/Time of Note DATE: 04/09/17 TIME: 09:21 Assessment/Plan Assessment/Plan Additional Assessment/Plan Chest x-ray was reviewed from today which is again showing bilateral pneumonia. Patient is currently on assist control of 24, tidal volume 600, PEEP of 0, 80% FiO2. Levophed at 2 mics per minute. Assessment and recommendations; 1. Patient admitted with sepsis due to bilateral pneumonia currently on appropriate antibiotic regimen. 2. Improved oxygenation status. Patient currently being mildly hyperventilated. 3. Advanced enthesopathy. 4. History of chronic respiratory failure which is ventilator dependent. 5. Renal insufficiency 6. Anemia. 7. Improving metabolic acidosis. Continue current supportive care. Ventilator settings have been adjusted. Assist-control rate decreased to 18, tidal volume decreased to 500, PEEP of 5 added as well as FiO2 decreased to 45%. Patient's family has decided for DNR status and may possibly opt for comfort care measures. Prognosis is extremely poor account of multiple comorbidities. 35 minutes of critical care time was spent evaluating the patient. Consultation Date/Type/Reason Admit Date/Time Apr 07, 2017 at 18:28 Initial Consult Date 04/08/17 Type of Consultation: Pulmonary/critical care Referring Provider: ORLY LIN MD 24 HR Interval Summary Free Text/Dictation Patient's condition remains critical. Remains unresponsive. Requiring pressor support for hypotension. General exam; elderly male, on ventilator via tracheostomy, unresponsive, currently in no distress. Exam/Review of Systems Vital Signs Vitals Vital Signs Date Time Temp Pulse Resp B/P Pulse Ox O2 Delivery O2 Flow Rate FiO2 04/09/17 07:15 112 28 100 80 04/09/17 06:45 102/60 Mechanical Ventilator 04/09/17 04:00 98.1 Intake and Output 04/08/17 04/08/17 04/09/17 15:00 23:00 07:00 Intake Total 3189 ml 932.25 ml 1118.75 ml Output Total 675 ml 745 ml 725 ml Balance 2514 ml 187.25 ml 393.75 ml Exam HEENT exam; supple neck, no JVD. No lymphadenopathy. Midline trachea. No thyromegaly. Patient has a multiple carious teeth. Tracheostomy in place. Insertion site is clean. Chest exam; diminished breath sounds throughout. S1-S2 audible, no murmurs. Regular rhythm. Abdomen exam; soft, no organomegaly. G-tube in place. Bowel sounds are sluggish. Extremity exam; no edema. [employer] exam; patient remains unresponsive. Results Result Diagram: 04/09/17 0500 04/09/17 0500 Results 24 hrs Laboratory Tests Test 04/08/17 11:01 04/08/17 12:00 04/08/17 12:34 04/08/17 13:55 Lactic Acid Level 5.2 *H Blood Gas Specimen Source Blood arterial Arterial Blood Date Drawn 04/08/2017 12:35:04 PM Arterial Blood pH (Temp corrected) 7.316 L Arterial Blood pCO2 (Temp correct) 33.3 L Arterial Blood pO2 (Temp corrected) 290.5 H Arterial Blood HCO3 16.6 L Arterial Blood Base Excess -8.6 L Arterial Blood Oxygen Saturation 99.4 H Ronald Test N/A Arterial Blood Gas Puncture Site Right Brachial Arterial Blood Carboxyhemoglobin 0.3 Arterial Blood Methemoglobin 0.4 Blood Gas A-a O2 Differential 389.2 H Oxyhemoglobin Percent 98.7 Total Hemoglobin 11.1 L Blood Gas Temperature 37.0 Blood Gas Respiration Rate 24.0 Blood Gas Actual Respiration Rate 40 Blood Gas Modality VENT - AC FiO2 100.0 Blood Gas Tidal Volume 600.0 Blood Gas Notified Whom CW Blood Gas Notified Time 04/08/2017 12:55:59 PM Bedside Glucose 87 Sodium Level 144 Potassium Level 5.2 H Chloride Level 112 H Carbon Dioxide Level 18 L Anion Gap 19 H Blood Urea Nitrogen 43 H Creatinine 1.41 H Glucose Level 93 Calcium Level 9.0 Total Bilirubin 0.0 L Direct Bilirubin 0.00 Indirect Bilirubin 0.0 Aspartate Amino Transf (AST/SGOT) 36 Alanine Aminotransferase (ALT/SGPT) 57 Alkaline Phosphatase 416 H Total Protein 5.3 #L Albumin 1.9 L Test 04/08/17 14:00 04/09/17 05:00 04/09/17 07:00 Urine Color YELLOW Urine Clarity SLIGHTLY CLOUDY A Urine pH 6.0 Urine Specific [place] 1.005 Urine Ketones NEGATIVE Urine Nitrite NEGATIVE Urine Bilirubin NEGATIVE Urine Urobilinogen NEGATIVE Urine Leukocyte Esterase TRACE A Urine Microscopic RBC 5 Urine Microscopic WBC 10 H Urine Calcium Oxalate Crystals FEW A Urine Bacteria FEW A Urine Hemoglobin 1+ H Urine Random Creatinine < 12.40 L Urine Random Sodium 65 Urine Glucose NEGATIVE Urine Total Protein 45.0 H White Blood Count 24.6 H Red Blood Count 2.58 #L Hemoglobin 7.2 #L Hematocrit 22.7 #L Mean Corpuscular Volume 88.0 Mean Corpuscular Hemoglobin 27.9 L Mean Corpuscular Hemoglobin Concent 31.7 L Red Cell Distribution Width 16.1 H Platelet Count 255 # Mean Platelet Volume 9.8 Neutrophils % Segmented Neutrophils % (Manual) 49 Band Neutrophils % (Manual) 36 H Lymphocytes % Lymphocytes % (Manual) 10 L Monocytes % Monocytes % (Manual) 3 Eosinophils % Eosinophils % (Manual) 2 Basophils % Nucleated Red Blood Cells % 0.0 Neutrophils # Neutrophils # (Manual) 14.2 H Band Neutrophils # 8.8 H Absolute Lymphocytes (Manual) 2.4 Lymphocytes # Monocytes # Absolute Monocytes (Manual) 0.7 Eosinophils # Basophils # Nucleated Red Blood Cells # Platelet Estimate NORMAL Anisocytosis 1+ Microcytosis 1+ Sodium Level 144 Potassium Level 4.4 Chloride Level 108 Carbon Dioxide Level 23 Anion Gap 17 H Blood Urea Nitrogen 45 H Creatinine 1.68 H Glucose Level 138 # Calcium Level 9.2 Phosphorus Level 5.9 #H Magnesium Level 1.5 L Total Bilirubin 0.1 L Direct Bilirubin 0.00 Indirect Bilirubin 0.1 Aspartate Amino Transf (AST/SGOT) 35 Alanine Aminotransferase (ALT/SGPT) 44 Alkaline Phosphatase 345 H Total Protein 6.2 Albumin 2.2 L Globulin 4.00 H Albumin/Globulin Ratio 0.55 Blood Gas Specimen Source Blood arterial Arterial Blood Date Drawn 04/09/2017 7:50:15 AM Arterial Blood pH (Temp corrected) 7.453 H Arterial Blood pCO2 (Temp correct) 29.5 L Arterial Blood pO2 (Temp corrected) 171.1 H Arterial Blood HCO3 20.2 L Arterial Blood Base Excess -3.2 L Arterial Blood Oxygen Saturation 99.0 H Ronald Test N/A Arterial Blood Gas Puncture Site Right Brachial Arterial Blood Carboxyhemoglobin 0.3 Arterial Blood Methemoglobin 0.2 Blood Gas A-a O2 Differential 368.3 H Oxyhemoglobin Percent 98.5 Total Hemoglobin 8.1 L Blood Gas Temperature 37.0 Blood Gas Respiration Rate 24.0 Blood Gas Actual Respiration Rate 29 Blood Gas Modality VENT - AC FiO2 80.0 Blood Gas Tidal Volume 600.0 Blood Gas Low PEEP Setting 0 Blood Gas Notified Whom JLD Blood Gas Notified Time 04/09/2017 8:34:12 AM Medications Medications Current Medications Norepinephrine/ Dextrose (Levophed/D5W) 500 ml @ 1.87 mls/hr TITRATE IV Last administered on 04/09/17 05:35; Admin Dose 3.75 MLS/HR; Start 04/07/17 at 20: 00 Miscellaneous Information This patient olson... PRN PRN XX WOUND CARE; Start at 02:30 Phenylephrine HCl 40 mg/Dextrose 500 ml @ 75 mls/hr TITRATE IV ; Start at 04:30 Linezolid 300 ml @ 300 mls/hr Q12 IVPB Last administered on 04/09/17 09:13; Admin Dose 300 MLS/HR; Start 04/08/17 at 21:00 Meropenem/Sodium Chloride 50 ml @ 100 mls/hr Q8 IVPB Last administered on 05:34; Admin Dose 100 MLS/HR; Start 04/08/17 at 14:00 Fluconazole/ Sodium Chloride (Diflucan 100 Mg/ NS (Pmx)) 50 ml @ 50 mls/hr Q24H IVPB Last administered on 04/08/17 13:56; Admin Dose 50 MLS/HR; Start at 12:00 IV Flush (NS 10 ml) 10 ml PRN PRN IV IV PROTOCOL; Start 04/08/17 at 14:00 Amiodarone HCl 200 mg 200 mg BID NGT Last administered on 04/09/17 09:14; Admin Dose 200 MG; Start 04/08/17 at 21:00 Magnesium Sulfate 50 ml @ 25 mls/hr ONCE ONCE IVPB Last administered on 09:13; Admin Dose 25 MLS/HR; Start 04/09/17 at 08:30; Stop 04/09/17 at 10 :29 Sodium Chloride (NS) 1,000 ml @ 75 mls/hr [id number] IV Last administered on 09:13; Admin Dose 75 MLS/HR; Start 04/09/17 at 08:30 DELISA [place] Apr 09, 2017 09:25
--- NOTE | 2017-04-09 09:40 | PN ---
DATE: 04/09/2017 SUBJECTIVE: The patient is critically ill on pressor support. No other acute events noted. OBJECTIVE: VITAL SIGNS: Blood pressure is 102/60, respirations 36, pulse 113, temperature 98.7. HEENT: Head is normocephalic. NECK: Shows trach. HEART: Regular rate. LUNGS: Show diminished breath sounds at base. ABDOMEN: Soft, nontender to palpation. No rebound or guarding. EXTREMITIES: Negative for clubbing, cyanosis, no edema. DERMATOLOGIC: No rashes. MUSCULOSKELETAL: No joint effusions. NEUROLOGIC: No change in exam. MEDICATIONS: The patient's medications have been reviewed. LABORATORY DATA: Shows white count 24.6, hemoglobin 7.2, platelet count 255. Sodium 144, potassium 4.4, BUN 45, creatinine 1.68, magnesium 1.5, phosphorus 5.9. IMAGING: Imaging studies were reviewed. ASSESSMENT AND PLAN: 1. Nonoliguric acute kidney injury with unknown baseline creatinine. Etiology is secondary to acut e tubular necrosis due to septic acute kidney injury and ischemic hypoperfusion. The patient is cur rently in injury phase of acute tubular necrosis. His renal function has been declining. The patie nt's urinalysis was reviewed, showed a BUN of greater than 1%. No evidence of active sediment. Pos itive proteinuria. The patient's renal ultrasound shows increased echogenicity, but no evidence of hydronephrosis. Plan at this point would be to continue current treatment plan. Continue IV hydrat ion. Continue pressor support to maintain MAP of 65. Otherwise, continue supportive care, renally dose all meds. 2. Metabolic acidosis secondary to acute kidney injury. The patient is currently on bicarbonate dr ip. We will repeat an ABG. If acidemia has improved, we will discontinue bicarbonate drip. 3. Anemia. Monitor hemoglobin and hematocrit levels, transfuse as needed. 4. Mineral bone disorder. Monitor calcium and phosphorus levels. 5. Hypomagnesemia. Will replete as needed. 6. Septic shock secondary to healthcare-associated pneumonia. Continue current medical management. Continue pressor support, IV fluids, antibiotic therapy. Follow up with infectious disease. 7. Ventilator dependent respiratory failure. Vent settings and ABG is reviewed. Continue to monit or. 8. Encephalopathy ____ toxic metabolic. Continue to monitor. 9. Diabetes. Continue current insulin regimen. 10. Dysphagia, status post PEG, resume tube feeding when stable. Please note I spent over 35 minutes of critical care time with this patient. Dictated By: FRANCESCO PEREZ/YOUSUF Conf#: [id number] DID#: [id number]
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
--- NOTE | 2017-04-09 13:57 | CONS ---
Date/Time of Note Date/Time of Note DATE: 04/09/17 TIME: 13:55 Assessment/Plan Assessment/Plan Additional Assessment/Plan Shock likely secondary to sepsis Hypotension requiring IV pressor Respiratory failure, vent dependent Paroxysmal atrial fibrillation Preserved ejection fraction Pulmonary hypertension Acute kidney injury Encephalopathy Anemia -Patient transferred to ICU secondary to worsening hypotension requiring IV pressor. Titrate IV pressor to maintain SBP greater than 90 and/or map above 60. Antibiotics as per infectious disease. Continue to hold all antihypertensive medications. Vent management as per our pulmonary colleagues. Patient with recent episode of paroxysmal atrial fibrillation at [place], currently in sinus rhythm. Amiodarone was restarted. Maintain magnesium above 2.0 (supplementation has already been ordered). -Greater than 32 minutes of critical care time taken in the care of this patient Consultation Date/Type/Reason Admit Date/Time Apr 07, 2017 at 18:28 Initial Consult Date 04/08/17 Type of Consultation: cv Referring Provider: ORLY LIN MD 24 HR Interval Summary Free Text/Dictation Patient seen and examined. IV pressor requirements decreasing as per nursing staff. Maintain a urine output, having diarrhea via rectal tube. Exam/Review of Systems Vital Signs Vitals Vital Signs Date Time Temp Pulse Resp B/P Pulse Ox O2 Delivery O2 Flow Rate FiO2 04/09/17 11:03 113 31 100 60 04/09/17 06:45 102/60 Mechanical Ventilator 04/09/17 04:00 98.1 Intake and Output 04/08/17 04/08/17 04/09/17 15:00 23:00 07:00 Intake Total 3189 ml 932.25 ml 1118.75 ml Output Total 675 ml 745 ml 725 ml Balance 2514 ml 187.25 ml 393.75 ml Exam No apparent distress, no response to verbal stimuli, on ventilator Head: normocephalic Neck: other (Tracheostomy) Respiratory: other (Coarse breath sounds bilaterally, no wheezing) Cardiovascular: other (S1-S2 heard), regular rate and rhythm Gastrointestinal: bowel sounds, other (No grimacing with palpation), soft Extremities: edema Results Result Diagram: 04/09/17 0500 04/09/17 0500 Results 24 hrs Laboratory Tests Test 04/08/17 14:00 04/09/17 05:00 04/09/17 07:00 Urine Color YELLOW Urine Clarity SLIGHTLY CLOUDY A Urine pH 6.0 Urine Specific [place] 1.005 Urine Ketones NEGATIVE Urine Nitrite NEGATIVE Urine Bilirubin NEGATIVE Urine Urobilinogen NEGATIVE Urine Leukocyte Esterase TRACE A Urine Microscopic RBC 5 Urine Microscopic WBC 10 H Urine Calcium Oxalate Crystals FEW A Urine Bacteria FEW A Urine Hemoglobin 1+ H Urine Random Creatinine < 12.40 L Urine Random Sodium 65 Urine Glucose NEGATIVE Urine Total Protein 45.0 H White Blood Count 24.6 H Red Blood Count 2.58 #L Hemoglobin 7.2 #L Hematocrit 22.7 #L Mean Corpuscular Volume 88.0 Mean Corpuscular Hemoglobin 27.9 L Mean Corpuscular Hemoglobin Concent 31.7 L Red Cell Distribution Width 16.1 H Platelet Count 255 # Mean Platelet Volume 9.8 Neutrophils % Segmented Neutrophils % (Manual) 49 Band Neutrophils % (Manual) 36 H Lymphocytes % Lymphocytes % (Manual) 10 L Monocytes % Monocytes % (Manual) 3 Eosinophils % Eosinophils % (Manual) 2 Basophils % Nucleated Red Blood Cells % 0.0 Neutrophils # Neutrophils # (Manual) 14.2 H Band Neutrophils # 8.8 H Absolute Lymphocytes (Manual) 2.4 Lymphocytes # Monocytes # Absolute Monocytes (Manual) 0.7 Eosinophils # Basophils # Nucleated Red Blood Cells # Platelet Estimate NORMAL Anisocytosis 1+ Microcytosis 1+ Sodium Level 144 Potassium Level 4.4 Chloride Level 108 Carbon Dioxide Level 23 Anion Gap 17 H Blood Urea Nitrogen 45 H Creatinine 1.68 H Glucose Level 138 # Calcium Level 9.2 Phosphorus Level 5.9 #H Magnesium Level 1.5 L Total Bilirubin 0.1 L Direct Bilirubin 0.00 Indirect Bilirubin 0.1 Aspartate Amino Transf (AST/SGOT) 35 Alanine Aminotransferase (ALT/SGPT) 44 Alkaline Phosphatase 345 H Total Protein 6.2 Albumin 2.2 L Globulin 4.00 H Albumin/Globulin Ratio 0.55 Blood Gas Specimen Source Blood arterial Arterial Blood Date Drawn 04/09/2017 7:50:15 AM Arterial Blood pH (Temp corrected) 7.453 H Arterial Blood pCO2 (Temp correct) 29.5 L Arterial Blood pO2 (Temp corrected) 171.1 H Arterial Blood HCO3 20.2 L Arterial Blood Base Excess -3.2 L Arterial Blood Oxygen Saturation 99.0 H Ronald Test N/A Arterial Blood Gas Puncture Site Right Brachial Arterial Blood Carboxyhemoglobin 0.3 Arterial Blood Methemoglobin 0.2 Blood Gas A-a O2 Differential 368.3 H Oxyhemoglobin Percent 98.5 Total Hemoglobin 8.1 L Blood Gas Temperature 37.0 Blood Gas Respiration Rate 24.0 Blood Gas Actual Respiration Rate 29 Blood Gas Modality VENT - AC FiO2 80.0 Blood Gas Tidal Volume 600.0 Blood Gas Low PEEP Setting 0 Blood Gas Notified Whom JLD Blood Gas Notified Time 04/09/2017 8:34:12 AM Medications Medications Current Medications Norepinephrine/ Dextrose (Levophed/D5W) 500 ml @ 1.87 mls/hr TITRATE IV Last administered on 04/09/17 05:35; Admin Dose 3.75 MLS/HR; Start 04/07/17 at 20: 00 Miscellaneous Information This patient olson... PRN PRN XX WOUND CARE; Start at 02:30 Linezolid 300 ml @ 300 mls/hr Q12 IVPB Last administered on 04/09/17 09:13; Admin Dose 300 MLS/HR; Start 04/08/17 at 21:00 Meropenem/Sodium Chloride 50 ml @ 100 mls/hr Q8 IVPB Last administered on 05:34; Admin Dose 100 MLS/HR; Start 04/08/17 at 14:00 Fluconazole/ Sodium Chloride (Diflucan 100 Mg/ NS (Pmx)) 50 ml @ 50 mls/hr Q24H IVPB Last administered on 04/08/17 13:56; Admin Dose 50 MLS/HR; Start at 12:00 IV Flush (NS 10 ml) 10 ml PRN PRN IV IV PROTOCOL; Start 04/08/17 at 14:00 Amiodarone HCl 200 mg 200 mg BID NGT Last administered on 04/09/17 09:14; Admin Dose 200 MG; Start 04/08/17 at 21:00 Sodium Chloride (NS) 1,000 ml @ 75 mls/hr [id number] IV Last administered on 09:13; Admin Dose 75 MLS/HR; Start 04/09/17 at 08:30 José Miguel Lawrence DO Apr 09, 2017 13:57
[2017-04-09 14:01] LABS: MICROALBUMIN 2.1 mg/dL
[2017-04-09] MEDS: FLUCONAZOLE 100 MG/NS (PMX) 50 ML IVPB SCH (14:05)
[2017-04-09] MEDS: SODIUM HYPOCHLORITE 1/40% 1L IRRIG IRR SCH ×2 (16:00→23:43)
--- NOTE | 2017-04-09 19:50 | CONS ---
Date/Time of Note Date/Time of Note DATE: 04/09/17 TIME: 19:48 Assessment/Plan Assessment/Plan Additional Assessment/Plan 61 yo Male with 1Septic Shock 2 Ventilatory Dependant Respiratory Failure S/p trach 3Healthcare associated PNA 4 Quadriplegia 5 diabetes mellitus 6 dysphagia status post PEG tube 7 Hyperkalemia 8 ARMANDO in the setting of Above 9 Severe Acidosis, lactic acidosis Likely ATN 2nd to Septic shock Cont current Rx and plan No acute indication for HD at this time Cont to monitor UO, Electrolytes, renal function, acid base status closely. Consultation Date/Type/Reason Admit Date/Time Apr 07, 2017 at 18:28 Initial Consult Date 04/08/17 Type of Consultation: Renal Referring Provider: ORLY LIN MD 24 HR Interval Summary Free Text/Dictation Almost off pressors, Improved UO, K improved. Subjective hx not possible: pt critical status Constitutional: requiring O2 Exam/Review of Systems Vital Signs Vitals Vital Signs Date Time Temp Pulse Resp B/P Pulse Ox O2 Delivery O2 Flow Rate FiO2 04/09/17 19:38 103 27 98 45 04/09/17 18:00 96/63 Mechanical Ventilator 04/09/17 16:00 97.9 Intake and Output 04/08/17 04/08/17 04/09/17 15:00 23:00 07:00 Intake Total 3189 ml 932.25 ml 1122.75 ml Output Total 675 ml 745 ml 785 ml Balance 2514 ml 187.25 ml 337.75 ml Exam ENMT: mucosa pink and moist Neck: No jvd Respiratory: crackles/rales, No diminished breath sounds, No labored breathing Cardiovascular: edema, regular rate and rhythm Gastrointestinal: soft, No distended, No rebound or guarding Neurological: unresponsive Skin: No diaphoresis, No rash or lesions Results Result Diagram: 04/09/17 0500 04/09/17 0500 Results 24 hrs Laboratory Tests Test 04/09/17 05:00 04/09/17 07:00 04/09/17 14:08 04/09/17 15:05 White Blood Count 24.6 H Red Blood Count 2.58 #L Hemoglobin 7.2 #L Hematocrit 22.7 #L Mean Corpuscular Volume 88.0 Mean Corpuscular Hemoglobin 27.9 L Mean Corpuscular Hemoglobin Concent 31.7 L Red Cell Distribution Width 16.1 H Platelet Count 255 # Mean Platelet Volume 9.8 Neutrophils % Segmented Neutrophils % (Manual) 49 Band Neutrophils % (Manual) 36 H Lymphocytes % Lymphocytes % (Manual) 10 L Monocytes % Monocytes % (Manual) 3 Eosinophils % Eosinophils % (Manual) 2 Basophils % Nucleated Red Blood Cells % 0.0 Neutrophils # Neutrophils # (Manual) 14.2 H Band Neutrophils # 8.8 H Absolute Lymphocytes (Manual) 2.4 Lymphocytes # Monocytes # Absolute Monocytes (Manual) 0.7 Eosinophils # Basophils # Nucleated Red Blood Cells # Platelet Estimate NORMAL Anisocytosis 1+ Microcytosis 1+ Sodium Level 144 Potassium Level 4.4 Chloride Level 108 Carbon Dioxide Level 23 Anion Gap 17 H Blood Urea Nitrogen 45 H Creatinine 1.68 H Glucose Level 138 # Calcium Level 9.2 Phosphorus Level 5.9 #H Magnesium Level 1.5 L Total Bilirubin 0.1 L Direct Bilirubin 0.00 Indirect Bilirubin 0.1 Aspartate Amino Transf (AST/SGOT) 35 Alanine Aminotransferase (ALT/SGPT) 44 Alkaline Phosphatase 345 H Total Protein 6.2 Albumin 2.2 L Globulin 4.00 H Albumin/Globulin Ratio 0.55 Blood Gas Specimen Source Blood arterial Arterial Blood Date Drawn 04/09/2017 7:50:15 AM Arterial Blood pH (Temp corrected) 7.453 H Arterial Blood pCO2 (Temp correct) 29.5 L Arterial Blood pO2 (Temp corrected) 171.1 H Arterial Blood HCO3 20.2 L Arterial Blood Base Excess -3.2 L Arterial Blood Oxygen Saturation 99.0 H Ronald Test N/A Arterial Blood Gas Puncture Site Right Brachial Arterial Blood Carboxyhemoglobin 0.3 Arterial Blood Methemoglobin 0.2 Blood Gas A-a O2 Differential 368.3 H Oxyhemoglobin Percent 98.5 Total Hemoglobin 8.1 L Blood Gas Temperature 37.0 Blood Gas Respiration Rate 24.0 Blood Gas Actual Respiration Rate 29 Blood Gas Modality VENT - AC FiO2 80.0 Blood Gas Tidal Volume 600.0 Blood Gas Low PEEP Setting 0 Blood Gas Notified Whom JLD Blood Gas Notified Time 04/09/2017 8:34:12 AM Bedside Glucose 158 Lactic Acid Level 2.8 *H Medications Medications Current Medications Norepinephrine/ Dextrose (Levophed/D5W) 500 ml @ 1.87 mls/hr TITRATE IV Last administered on 04/09/17t 05:35; Admin Dose 3.75 MLS/HR; Start 04/07/17 at 20: 00 Miscellaneous Information This patient olson... PRN PRN XX WOUND CARE; Start at 02:30 Linezolid 300 ml @ 300 mls/hr Q12 IVPB Last administered on 04/09/17 09:13; Admin Dose 300 MLS/HR; Start 04/08/17 at 21:00 Meropenem/Sodium Chloride 50 ml @ 100 mls/hr Q8 IVPB Last administered on 14:05; Admin Dose 100 MLS/HR; Start 04/08/17 at 14:00 Fluconazole/ Sodium Chloride (Diflucan 100 Mg/ NS (Pmx)) 50 ml @ 50 mls/hr Q24H IVPB Last administered on 04/09/17 14:05; Admin Dose 50 MLS/HR; Start at 12:00 IV Flush (NS 10 ml) 10 ml PRN PRN IV IV PROTOCOL; Start 04/08/17 at 14:00 Amiodarone HCl 200 mg 200 mg BID NGT Last administered on 04/09/17 09:14; Admin Dose 200 MG; Start 04/08/17 at 21:00 Sodium Chloride (NS) 1,000 ml @ 75 mls/hr [id number] IV Last administered on 09:13; Admin Dose 75 MLS/HR; Start 04/09/17 at 08:30 Sodium Hypochlorite (Dakin'S (Dilute 1/40%)) 1 applic BID IRR Last administered on 04/09/17 16:00; Admin Dose 1 APPLIC; Start 04/09/17 at 16:00 CONCETTA LOCKE MD Apr 09, 2017 19:50
[2017-04-10] VITALS (66 sets, daily range): BP systolic 94–132; BP diastolic 60–87; PULSE 92–112; RESP 25–30
--- NOTE | 2017-04-10 03:09 | PN ---
DATE: 04/09/2017 SUBJECTIVE: No acute changes. The patient is not communicative, tachycardic, on pressors, in no di stress. VITAL SIGNS: Temperature 98.1, pulse 113, respirations 30, blood pressure 102/60, saturation 100% o n 80% FiO2. WBC 24.6, H and H 7.2 and 22.7, platelets 255, BUN 45, creatinine 1.68. MICROBIOLOGY: Blood and urine culture are preliminary negative. Endotracheal cultures growing gram -negative rods. INDWELLINGS: The patient has PICC line, [place], trach, PEG. DIAGNOSTICS: Chest x-ray this morning revealed worsening CHF with superimposed infectious process. ANTIMICROBIALS: The patient is on: 1. Zyvox. 2. Meropenem. 3. Fluconazole. PHYSICAL EXAMINATION: GENERAL: Chronically ill-appearing, vegetative, middle-aged man who is in no distress. HEENT: Head atraumatic, normocephalic. Sclerae anicteric. Buccal mucosa dry. NECK: Supple. CHEST: Rise symmetrical. Breath sounds with bilateral rhonchi. HEART: S1, S2. ABDOMEN: Soft. Bowel sounds hypoactive. EXTREMITIES: Contractured with multiple pressure sores. SKIN: With multiple unstageable wounds. ASSESSMENT: 1. Severe sepsis with shock and multisystem organ failure. 2. Healthcare-associated pneumonia. 3. Multiple unstageable chronic wounds, infected with sacral wound debridement on multiple occasion s. 4. Acute renal failure. 5. Chronic encephalopathy and persistent vegetative state. 6. Anemia. 7. DO NOT RESUSCITATE status. PLAN: The patient remains hemodynamically unstable, overall doing poorly. He has multiple infected wounds and ongoing admissions to the hospital for recurrent sepsis, UTI, pneumonia. His prognosis is guarded and ____ futile. Consider hospice evaluation. Dictated By: ANA VALDES CONTACT CENTER AGENT for SHEA CENTENO MD NI/NTS Conf#: [id number] DID#: [id number] CC: MARLENA CARBAJAL MD;*EndCC*
[2017-04-10] MEDS: SOD CHLORIDE 0.9% 1,000 ML IV SCH ×2 (04:06→21:43)
[2017-04-10] MEDS: MEROPENEM 500MG/50 ML (PMX) 50 ML IVPB SCH ×2 (05:12→14:00)
[2017-04-10 05:32] LABS: ABNORMAL IP MESSAGE 1; BASOPHILS % 0.3 % (0.0-2.0); EOSINOPHILS # 0.6 10^3/ul (0.0-0.5); EOSINOPHILS % 4.4 % (0.0-7.0); HEMATOCRIT 22.8 % (42.0-52.0); HEMOGLOBIN 7.5 g/dl (14.0-18.0); LYMPHOCYTES # 1.4 10^3/ul (0.8-2.9); LYMPHOCYTES % 11.1 % (15.0-51.0); MEAN CORPUSCULAR HEMOGLOBIN 28.4 pg (29.0-33.0); MEAN CORPUSCULAR HGB CONC 32.9 g/dl (32.0-37.0); MEAN CORPUSCULAR VOLUME 86.4 fl (82.0-101.0); MEAN PLATELET VOLUME 10.4 fl (7.4-10.4); MONOCYTES % 7.7 % (0.0-11.0); NEUTROPHIL # 9.2 10^3/ul (1.6-7.5); NEUTROPHILS % 70.8 % (39.0-77.0); PLATELET COUNT 361 10^3/UL (140-415); POSITIVE DIFF @See below; RED BLOOD COUNT 2.64 10^6/ul (4.70-6.10); RED CELL DISTRIBUTION WIDTH 14.3 % (11.5-14.5)
[2017-04-10 06:09] LABS: CALCIUM 8.3 mg/dl (8.4-10.2); CREATININE 0.83 mg/dl (0.61-1.24); MAGNESIUM 2.2 mg/dl (1.7-2.5); PHOSPHORUS 3.1 mg/dl (2.5-4.9)
[2017-04-10] MEDS: LINEZOLID 600 MG/D5W (PMX) 300 ML IVPB SCH ×2 (09:49→20:36)
[2017-04-10] MEDS: AMIODARONE 200 MG TAB NGT SCH ×2 (09:50→20:36)
--- NOTE | 2017-04-10 10:04 | PN ---
Date/Time of Note Date/Time of Note DATE: 04/10/17 TIME: 10:02 Assessment/Plan VTE Prophylaxis VTE Prophylaxis Intervention: SCD's Lines/Catheters IV Catheter Type (from Nrs): PICC Line Central line still needed: No Urinary Cath still in place: Yes Reason Cath still needed: urinary retention Assessment/Plan Assessment/Plan Shock likely secondary to sepsis Hypotension requiring IV pressor Respiratory failure, vent dependent Paroxysmal atrial fibrillation Preserved ejection fraction Pulmonary hypertension Acute kidney injury Encephalopathy Anemia -Patient transferred to ICU secondary to worsening hypotension requiring IV pressor recently. Titrate IV pressor to maintain SBP greater than 90 and/or map above 60. Antibiotics as per infectious disease. Continue to hold all antihypertensive medications. Vent management as per our pulmonary colleagues. Patient with recent episode of paroxysmal atrial fibrillation at [place], currently in sinus rhythm. Amiodarone was restarted. Maintain magnesium above 2.0 (supplementation has already been ordered). Subjective 24 Hr Interval Summary Free Text/Dictation The aptient with no cahnge Exam/Review of Systems Vital Signs Vitals Vital Signs Date Time Temp Pulse Resp B/P Pulse Ox O2 Delivery O2 Flow Rate FiO2 04/10/17 08:00 102 04/10/17 07:39 27 94 45 04/10/17 06:30 108/68 04/10/17 05:30 Nasal Cannula 04/10/17 04:00 98.4 Intake and Output 04/09/17 04/09/17 04/10/17 15:00 23:00 07:00 Intake Total 1174 ml 1284.74 ml 740 ml Output Total 635 ml 460 ml 435 ml Balance 539 ml 824.74 ml 305 ml Results Result Diagram: 04/10/17 0458 04/10/17 0458 Results 24 hrs Laboratory Tests Test 04/09/17 14:08 04/09/17 15:05 04/10/17 04:58 Bedside Glucose 158 Lactic Acid Level 2.8 *H White Blood Count 13.0 #H Red Blood Count 2.64 L Hemoglobin 7.5 L Hematocrit 22.8 L Mean Corpuscular Volume 86.4 Mean Corpuscular Hemoglobin 28.4 L Mean Corpuscular Hemoglobin Concent 32.9 Red Cell Distribution Width 14.3 Platelet Count 361 # Mean Platelet Volume 10.4 Neutrophils % 70.8 Lymphocytes % 11.1 L Monocytes % 7.7 Eosinophils % 4.4 Basophils % 0.3 Nucleated Red Blood Cells % 0.0 Neutrophils # 9.2 H Lymphocytes # 1.4 Monocytes # 1.0 H Eosinophils # 0.6 H Basophils # 0.0 Nucleated Red Blood Cells # 0.0 Sodium Level 145 H Potassium Level 4.0 Chloride Level 109 Carbon Dioxide Level 29 Anion Gap 11 Blood Urea Nitrogen 28 #H Creatinine 0.83 Glucose Level 102 Calcium Level 8.3 L Phosphorus Level 3.1 # Magnesium Level 2.2 Medications Medications Current Medications Norepinephrine/ Dextrose (Levophed/D5W) 500 ml @ 1.87 mls/hr TITRATE IV Last administered on 04/09/17 05:35; Admin Dose 3.75 MLS/HR; Start 04/07/17 at 20: 00 Miscellaneous Information This patient olson... PRN PRN XX WOUND CARE; Start at 02:30 Linezolid 300 ml @ 300 mls/hr Q12 IVPB Last administered on 04/10/17 09:49; Admin Dose 300 MLS/HR; Start 04/08/17 at 21:00 Meropenem/Sodium Chloride 50 ml @ 100 mls/hr Q8 IVPB Last administered on 05:12; Admin Dose 100 MLS/HR; Start 04/08/17 at 14:00 Fluconazole/ Sodium Chloride (Diflucan 100 Mg/ NS (Pmx)) 50 ml @ 50 mls/hr Q24H IVPB Last administered on 04/09/17 14:05; Admin Dose 50 MLS/HR; Start at 12:00 IV Flush (NS 10 ml) 10 ml PRN PRN IV IV PROTOCOL; Start 04/08/17 at 14:00 Amiodarone HCl 200 mg 200 mg BID NGT Last administered on 04/10/17 09:50; Admin Dose 200 MG; Start 04/08/17 at 21:00 Sodium Chloride (NS) 1,000 ml @ 75 mls/hr [id number] IV Last administered on 04:06; Admin Dose 75 MLS/HR; Start 04/09/17 at 08:30 Sodium Hypochlorite (Dakin'S (Dilute 1/40%)) 1 applic BID IRR Last administered on 04/09/17 23:43; Admin Dose 1 APPLIC; Start 04/09/17 at 16:00 BERTHA PHILIPPE MD Apr 10, 2017 10:04
--- NOTE | 2017-04-10 11:11 | CONS ---
Date/Time of Note Date/Time of Note DATE: 04/10/17 TIME: 11:10 Consult Date/Type/Reason Admit Date/Time Apr 07, 2017 at 18:28 Initial Consult Date 04/08/17 Type of Consultation: Pulmonary Ordering Provider: ORLY LIN MD Subjective No significant changes. Patient continues mechanical ventilation. Continues vasopressor support. Objective Vital Signs Date Time Temp Pulse Resp B/P Pulse Ox O2 Delivery O2 Flow Rate FiO2 04/10/17 09:10 103 28 95 45 04/10/17 06:30 108/68 04/10/17 05:30 Nasal Cannula 04/10/17 04:00 98.4 Intake and Output 04/09/17 04/09/17 04/10/17 15:00 23:00 07:00 Intake Total 1174 ml 1284.74 ml 740 ml Output Total 635 ml 460 ml 435 ml Balance 539 ml 824.74 ml 305 ml Exam PHYSICAL EXAMINATION: GENERAL: Chronically ill appearing gentleman with contractures. VITAL SIGNS: As above NECK: Trach site appears clean and intact. CARDIAC: S1, S2, no added sounds or murmurs. CHEST: Diminished air entry bilaterally. ABDOMEN: Soft, nontender. No guarding or rebound. EXTREMITIES: No cyanosis, clubbing, edema. NEUROLOGIC: Unable to assess. Results/Medications Result Diagram: 04/10/17 0458 04/10/17 0458 Results 24 hrs Laboratory Tests Test 04/09/17 14:08 04/09/17 15:05 04/10/17 04:58 Bedside Glucose 158 Lactic Acid Level 2.8 *H White Blood Count 13.0 #H Red Blood Count 2.64 L Hemoglobin 7.5 L Hematocrit 22.8 L Mean Corpuscular Volume 86.4 Mean Corpuscular Hemoglobin 28.4 L Mean Corpuscular Hemoglobin Concent 32.9 Red Cell Distribution Width 14.3 Platelet Count 361 # Mean Platelet Volume 10.4 Neutrophils % 70.8 Lymphocytes % 11.1 L Monocytes % 7.7 Eosinophils % 4.4 Basophils % 0.3 Nucleated Red Blood Cells % 0.0 Neutrophils # 9.2 H Lymphocytes # 1.4 Monocytes # 1.0 H Eosinophils # 0.6 H Basophils # 0.0 Nucleated Red Blood Cells # 0.0 Sodium Level 145 H Potassium Level 4.0 Chloride Level 109 Carbon Dioxide Level 29 Anion Gap 11 Blood Urea Nitrogen 28 #H Creatinine 0.83 Glucose Level 102 Calcium Level 8.3 L Phosphorus Level 3.1 # Magnesium Level 2.2 Medications Current Medications Norepinephrine/ Dextrose (Levophed/D5W) 500 ml @ 1.87 mls/hr TITRATE IV Last administered on 04/09/17 05:35; Admin Dose 3.75 MLS/HR; Start 04/07/17 at 20: 00 Miscellaneous Information This patient olson... PRN PRN XX WOUND CARE; Start at 02:30 Linezolid 300 ml @ 300 mls/hr Q12 IVPB Last administered on 04/10/17 09:49; Admin Dose 300 MLS/HR; Start 04/08/17 at 21:00 Meropenem/Sodium Chloride 50 ml @ 100 mls/hr Q8 IVPB Last administered on 05:12; Admin Dose 100 MLS/HR; Start 04/08/17 at 14:00 Fluconazole/ Sodium Chloride (Diflucan 100 Mg/ NS (Pmx)) 50 ml @ 50 mls/hr Q24H IVPB Last administered on 04/09/17 14:05; Admin Dose 50 MLS/HR; Start at 12:00 IV Flush (NS 10 ml) 10 ml PRN PRN IV IV PROTOCOL; Start 04/08/17 at 14:00 Amiodarone HCl 200 mg 200 mg BID NGT Last administered on 04/10/17 09:50; Admin Dose 200 MG; Start 04/08/17 at 21:00 Sodium Chloride (NS) 1,000 ml @ 75 mls/hr [id number] IV Last administered on 04:06; Admin Dose 75 MLS/HR; Start 04/09/17 at 08:30 Sodium Hypochlorite (Dakin'S (Dilute 1/40%)) 1 applic BID IRR Last administered on 04/09/17 23:43; Admin Dose 1 APPLIC; Start 04/09/17 at 16:00 Assessment/Plan Chief Complaint/Hosp Course IMPRESSION 1. Acute on chronic hypoxemic and hypercapnic respiratory failure. 2. Severe metabolic acidosis. 3. Septic shock with multiorgan failure. 4. History of encephalopathy. Plan 1. Vasopressor support. 2. Broad-spectrum antibiotics. 3. IV fluids. 4. A family conference regarding goals of care. Overall prognosis very poor. Critical care time 40 minutes. Problems: JUAN TORIBIO MD, [facility] Apr 10, 2017 11:11
--- NOTE | 2017-04-10 11:37 | PN ---
Date/Time of Note Date/Time of Note DATE: 04/10/17 TIME: 11:35 Assessment/Plan VTE Prophylaxis VTE Prophylaxis Intervention: other Assessment/Plan Chief Complaint/Hosp Course 1Septic Shock 2 Ventilatory Dependant Respiratory Failure S/p trach 3Healthcare associated PNA 4 Quadriplegia 5 diabetes mellitus 6 dysphagia status post PEG tube 7 Hyperkalemia 8 ARMANDO in the setting of Above 9 Severe Acidosis, lactic acidosis [id number] on vent non oliguric renal function better d/w nurse Problems: Subjective 24 Hr Interval Summary Subjective hx not possible: pt non-verbal Exam/Review of Systems Vital Signs Vitals Vital Signs Date Time Temp Pulse Resp B/P Pulse Ox O2 Delivery O2 Flow Rate FiO2 04/10/17 09:10 103 28 95 45 04/10/17 06:30 108/68 04/10/17 05:30 Nasal Cannula 04/10/17 04:00 98.4 Intake and Output 04/09/17 04/09/17 04/10/17 15:00 23:00 07:00 Intake Total 1174 ml 1284.74 ml 740 ml Output Total 635 ml 460 ml 435 ml Balance 539 ml 824.74 ml 305 ml Exam Eyes: nl conjunctiva ENMT: intubated Neck: supple Respiratory: labored breathing, normal air movement Cardiovascular: regular rate and rhythm Gastrointestinal: nl liver, spleen, soft Musculoskeletal: nl extremities to inspection Results Result Diagram: 04/10/17 0458 04/10/17 0458 Results 24 hrs Laboratory Tests Test 04/09/17 14:08 04/09/17 15:05 04/10/17 04:58 Bedside Glucose 158 Lactic Acid Level 2.8 *H White Blood Count 13.0 #H Red Blood Count 2.64 L Hemoglobin 7.5 L Hematocrit 22.8 L Mean Corpuscular Volume 86.4 Mean Corpuscular Hemoglobin 28.4 L Mean Corpuscular Hemoglobin Concent 32.9 Red Cell Distribution Width 14.3 Platelet Count 361 # Mean Platelet Volume 10.4 Neutrophils % 70.8 Lymphocytes % 11.1 L Monocytes % 7.7 Eosinophils % 4.4 Basophils % 0.3 Nucleated Red Blood Cells % 0.0 Neutrophils # 9.2 H Lymphocytes # 1.4 Monocytes # 1.0 H Eosinophils # 0.6 H Basophils # 0.0 Nucleated Red Blood Cells # 0.0 Sodium Level 145 H Potassium Level 4.0 Chloride Level 109 Carbon Dioxide Level 29 Anion Gap 11 Blood Urea Nitrogen 28 #H Creatinine 0.83 Glucose Level 102 Calcium Level 8.3 L Phosphorus Level 3.1 # Magnesium Level 2.2 Medications Medications Current Medications Norepinephrine/ Dextrose (Levophed/D5W) 500 ml @ 1.87 mls/hr TITRATE IV Last administered on 04/09/17 05:35; Admin Dose 3.75 MLS/HR; Start 04/07/17 at 20: 00 Miscellaneous Information This patient olson... PRN PRN XX WOUND CARE; Start at 02:30 Linezolid 300 ml @ 300 mls/hr Q12 IVPB Last administered on 04/10/17 09:49; Admin Dose 300 MLS/HR; Start 04/08/17 at 21:00 Meropenem/Sodium Chloride 50 ml @ 100 mls/hr Q8 IVPB Last administered on 05:12; Admin Dose 100 MLS/HR; Start 04/08/17 at 14:00 Fluconazole/ Sodium Chloride (Diflucan 100 Mg/ NS (Pmx)) 50 ml @ 50 mls/hr Q24H IVPB Last administered on 04/09/17 14:05; Admin Dose 50 MLS/HR; Start at 12:00 IV Flush (NS 10 ml) 10 ml PRN PRN IV IV PROTOCOL; Start 04/08/17 at 14:00 Amiodarone HCl 200 mg 200 mg BID NGT Last administered on 04/10/17 09:50; Admin Dose 200 MG; Start 04/08/17 at 21:00 Sodium Chloride (NS) 1,000 ml @ 75 mls/hr [id number] IV Last administered on 04:06; Admin Dose 75 MLS/HR; Start 04/09/17 at 08:30 Sodium Hypochlorite (Dakin'S (Dilute 1/40%)) 1 applic BID IRR Last administered on 04/09/17 23:43; Admin Dose 1 APPLIC; Start 04/09/17 at 16:00 MYRNA ELLER MD Apr 10, 2017 11:37
[2017-04-10] MEDS: SODIUM HYPOCHLORITE 1/40% 1L IRRIG IRR SCH ×2 (11:38→20:36)
[2017-04-10] MEDS: FLUCONAZOLE 100 MG/NS (PMX) 50 ML IVPB SCH (11:39)
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
--- NOTE | 2017-04-10 17:00 | PN ---
DATE: 04/10/2017 SUBJECTIVE: No acute changes. The patient remains on pressors, obtunded, in no distress and he is also tachycardic, afebrile. VITAL SIGNS: Temperature 98.4, pulse 106, respirations 29, blood pressure 108/68, saturation 94 on 45 FIO2. LABORATORY DATA: WBC 13, platelets 361, neutrophils 70.8, BUN 28, creatinine 0.83. MICROBIOLOGY: Blood and urine cultures remain negative. Endotracheal aspirate growing Pseudomonas aeruginosa. ANTIMICROBIALS: 1. The patient is on IV Meropenem. 2. Zyvox. 3. Fluconazole. INDWELLINGS: Trach, PEG, [place], PICC line placed on 04/08/2017. PHYSICAL EXAMINATION: GENERAL: This is a chronically ill-appearing, middle-aged man who is in no distress. HEENT: Head atraumatic, normocephalic. Sclerae anicteric. Buccal mucosa dry. NECK: Supple. Tracheostomy present. CHEST: Rise symmetrical. Breath sounds with bilateral rhonchi. HEART: S1, S2. ABDOMEN: Soft. Bowel tones hypoactive. EXTREMITIES: Contracted. ASSESSMENT: 1. Septic shock. 2. Multiple unstageable infected wounds. 3. Healthcare-associated pneumonia. 4. Dysphagia. 5. Acute renal failure. 6. Persistent vegetative state. PLAN: The patient remains unchanged. Continue present care, antibiotics, pending family conference regarding goals of care. Dictated By: ANA VALDES SNAG GRINDER for SHEA CENTENO MD NI/NTS Conf#: [id number] DID#: [id number] CC: SHEA CENTENO MD;*End*
[2017-04-10] MEDS: MEROPENEM 1 GM/50ML(PMX) 50 ML IVPB SCH (21:43)
[2017-04-11] VITALS (69 sets, daily range): BP systolic 82–120; BP diastolic 54–76; PULSE 88–105; RESP 27–51
--- NOTE | 2017-04-11 03:40 | RADRPT ---
PROCEDURE: XR Cervical Spine. CLINICAL INDICATION: eval for lytic lesions TECHNIQUE: Portable supine AP, and cross-table lateral views of the cervical spine were performed. The images were reviewed on a PACS workstation. COMPARISON: None. FINDINGS: The AP view is limited due to positioning and skin fold artifact. Tracheostomy tube is seen. C7-T1 level is not adequately visualized on the lateral view. The odontoid is also not well visualiz ed. The vertebral body alignment, height and osseous mineralization are normal. Severe C6-7 disc height loss and endplate degenerative changes are visualized. The posterior elements are unremarkable. There are calcifications in the right neck. No radiopaque foreign body is identified. No acute fracture, subluxation or osseous lesion is identified. IMPRESSION: Limited exam. CT is recommended. Severe C6-7 degenerative disc disease. Physician Eddie Date Time Electronically viewed and signed by Physician Eddie on 04/11/2017 03:40 /
[2017-04-11 04:52] LABS: HEMATOCRIT 24.1 % (42.0-52.0); HEMOGLOBIN 7.4 g/dl (14.0-18.0); MEAN CORPUSCULAR HEMOGLOBIN 27.8 pg (29.0-33.0); MEAN CORPUSCULAR HGB CONC 30.7 g/dl (32.0-37.0); MEAN CORPUSCULAR VOLUME 90.6 fl (82.0-101.0); MEAN PLATELET VOLUME 10.1 fl (7.4-10.4); PLATELET COUNT 146 10^3/UL (140-415); POSITIVE DIFF @See below; RED BLOOD COUNT 2.66 10^6/ul (4.70-6.10); RED CELL DISTRIBUTION WIDTH 16.2 % (11.5-14.5); WHITE BLOOD COUNT 18.2 10^3/ul (4.8-10.8)
[2017-04-11 05:26] LABS: ALBUMIN 2.2 g/dl (3.3-4.9); ALBUMIN/GLOBULIN RATIO 0.61; CALCIUM 8.9 mg/dl (8.4-10.2); CREATININE 1.89 mg/dl (0.61-1.24); MAGNESIUM 1.8 mg/dl (1.7-2.5); PHOSPHORUS 6.4 mg/dl (2.5-4.9); POTASSIUM 3.3 mmol/L (3.5-5.1); TOTAL PROTEIN 5.8 g/dl (6.1-8.1)
[2017-04-11] MEDS: MEROPENEM 1 GM/50ML(PMX) 50 ML IVPB SCH ×3 (05:26→23:37)
--- NOTE | 2017-04-11 06:24 | RADRPT ---
PROCEDURE: Thoracic Spine. CLINICAL INDICATION: Pain. Evaluate for lytic lesions. TECHNIQUE: Thoracic spine x-ray, single frontal view. COMPARISON: Chest x-ray 04/09/2017. FINDINGS: Bony mineralization appears normal. A tracheostomy tube is in place within the airway. The right upp er extremity PICC terminates within the SVC. Vertebral body heights appear normal on this single fro ntal view. The pedicles are symmetric in appearance. There is no obvious bony lesion. Bony cortices appear contiguous. Patchy interstitial and alveolar opacification is seen within the visualized lung parenchyma. IMPRESSION: Unremarkable limited thoracic spine x-ray. Support lines and tubes, as above. Patchy parenchymal and alveolar opacification, unchanged. RPTAT: [facility]ST .Kami Gonzalez MD, MD Date Time Electronically viewed and signed by .Kami Gonzalez MD, on 04/11/2017 06:23 .T/
--- NOTE | 2017-04-11 06:26 | RADRPT ---
PROCEDURE: XR Lumbar Spine. CLINICAL INDICATION: Pain. Evaluate for lytic lesions. TECHNIQUE: Lumbar spine x-rays, single frontal view. COMPARISON: None. FINDINGS: Bony mineralization appears normal. Vertebral body heights appear normal on this single frontal view . The pedicles are symmetrically unremarkable. Bony cortices appear contiguous. Scattered small oste ophytes are seen along the lumbar spine. IMPRESSION: Mild degenerative changes of the lumbar spine. No obvious bony lesion. RPTAT: HLST .Kami Gonzalez MD, MD Date Time Electronically viewed and signed by .Kami Gonzalez MD, MD on 04/11/2017 06:26 .T/
[2017-04-11] MEDS: LINEZOLID 600 MG/D5W (PMX) 300 ML IVPB SCH ×2 (08:59→20:56)
[2017-04-11] MEDS: SODIUM HYPOCHLORITE 1/40% 1L IRRIG IRR SCH ×2 (08:59→21:11)
[2017-04-11] MEDS: AMIODARONE 200 MG TAB NGT SCH ×2 (09:00→20:55)
--- NOTE | 2017-04-11 09:06 | PN ---
Date/Time of Note Date/Time of Note DATE: 04/11/17 TIME: 09:06 Assessment/Plan VTE Prophylaxis VTE Prophylaxis Intervention: SCD's Lines/Catheters IV Catheter Type (from Nrsg): PICC Line Central line still needed: Yes Urinary Cath still in place: Yes Reason Cath still needed: other (indicate) Assessment/Plan Assessment/Plan 61-year-old chronically vegetative state male cardiac arrestAfter status post PEG tube and chronically ventilator dependent via trach currently admitted and managed as follows: 1. Septic shock secondary to Pseudomonas respiratory infection, UTI as well as MDR Klebsiella pneumonia infection of [place] 2. Chronic respiratory failure with chronic ventilator dependence from chronic ischemic encephalopathy 3. Debilitated state status post cardiac arrest with likely hypoxic ischemic encephalopathy 4. Status post metabolic acidosis from septic shock 5. Chronic sacral decubiti 6. Paroxysmal atrial fibrillation on amiodarone 7. Acute renal failure rule out chronic kidney disease 8. DNR Plan: Continue broad-spectrum antibiotics Continue to try to wean off pressors Appreciate all consults Replace electrolytes patient will likely need blood transfusion sooner than later Poor [facility] prognosis further interventions per course CRITICAL CARE TIME: >35 mins Subjective 24 Hr Interval Summary Free Text/Dictation Nursing reports no acute overnight events. Subjective hx not possible: pt critical status Exam/Review of Systems Vital Signs Vitals Vital Signs Date Time Temp Pulse Resp B/P Pulse Ox O2 Delivery O2 Flow Rate FiO2 04/11/17 08:00 97.7 93 36 98/63 95 04/11/17 08:00 40 04/11/17 06:15 Mechanical Ventilator Intake and Output 04/10/17 04/10/17 04/11/17 15:00 23:00 07:00 Intake Total 83.74 ml 2023.6 ml 346.3 ml Output Total 380 ml 260 ml 610 ml Balance -296.26 ml 1763.6 ml -263.7 ml Exam Constitutional: non-verbal, other ( not following commands or tracking), Eyes open spontaneously, No oriented, No distress Psych: other (unable to assess) Eyes: PERRL, No icteric ENMT: No mucosa pink and moist (dry) Neck: trach to vent Respiratory: diminished breath sounds, + bibasal crackles No labored breathing Cardiovascular: regular rate and rhythm, No murmurs/extra sounds Gastrointestinal: soft, non-tender, bowel sounds, other (PEG tube noted with no cellulitis or discharge) Extremities: No edema Neurological: lethargic, other (altered, eyes opening spontaneously but no tracking or following commands), No nl mental status, No nl speech, No nl strength Results Result Diagram: 04/11/17 0400 04/11/17 0415 Results 24 hrs Laboratory Tests Test 04/11/17 04:00 04/11/17 04:15 White Blood Count 18.2 #H Red Blood Count 2.66 L Hemoglobin 7.4 L Hematocrit 24.1 L Mean Corpuscular Volume 90.6 Mean Corpuscular Hemoglobin 27.8 L Mean Corpuscular Hemoglobin Concent 30.7 L Red Cell Distribution Width 16.2 H Platelet Count 146 # Mean Platelet Volume 10.1 Neutrophils % Lymphocytes % Monocytes % Eosinophils % Basophils % Nucleated Red Blood Cells % 0.0 Neutrophils # Lymphocytes # Monocytes # Eosinophils # Basophils # Nucleated Red Blood Cells # Sodium Level 144 Potassium Level 3.3 L Chloride Level 110 Carbon Dioxide Level 22 Anion Gap 15 Blood Urea Nitrogen 49 #H Creatinine 1.89 #H Glucose Level 152 Calcium Level 8.9 Phosphorus Level 6.4 #H Magnesium Level 1.8 Total Bilirubin 0.0 L Direct Bilirubin 0.00 Indirect Bilirubin 0.0 Aspartate Amino Transf (AST/SGOT) 17 # Alanine Aminotransferase (ALT/SGPT) 33 Alkaline Phosphatase 310 H Total Protein 5.8 L Albumin 2.2 L Globulin 3.60 H Albumin/Globulin Ratio 0.61 Medications Medications Current Medications Norepinephrine/ Dextrose (Levophed/D5W) 500 ml @ 1.87 mls/hr TITRATE IV Last administered on 04/11/17 05:28; Admin Dose 0.93 MLS/HR; Start 04/07/17 at 20: 00 Miscellaneous Information This patient olson... PRN PRN XX WOUND CARE; Start at 02:30 Linezolid 300 ml @ 300 mls/hr Q12 IVPB Last administered on 04/11/17 08:59; Admin Dose 300 MLS/HR; Start 04/08/17 at 21:00 Fluconazole/ Sodium Chloride (Diflucan 100 Mg/ NS (Pmx)) 50 ml @ 50 mls/hr Q24H IVPB Last administered on 04/10/17 11:39; Admin Dose 50 MLS/HR; Start at 12:00 IV Flush (NS 10 ml) 10 ml PRN PRN IV IV PROTOCOL; Start 04/08/17 at 14:00 Amiodarone HCl 200 mg 200 mg BID NGT Last administered on 04/11/17 09:00; Admin Dose 200 MG; Start 04/08/17 at 21:00 Sodium Chloride (NS) 1,000 ml @ 75 mls/hr [id number] IV Last administered on 21:43; Admin Dose 75 MLS/HR; Start 04/09/17 at 08:30 Sodium Hypochlorite 1 applic 1 applic BID IRR Last administered on 04/11/17 08:59; Admin Dose 1 APPLIC; Start 04/09/17 at 16:00 Meropenem/Sodium Chloride (Merrem 1 Gm/50 ml (Pmx)) 50 ml @ 100 mls/hr Q8 IVPB Last administered on 04/11/17 05:26; Admin Dose 100 MLS/HR; Start 04/10/17 at 22:00 MARLENA CARBAJAL Apr 11, 2017 09:06
--- NOTE | 2017-04-11 09:58 | CONS ---
Date/Time of Note Date/Time of Note DATE: 04/11/17 TIME: 09:56 Consult Date/Type/Reason Admit Date/Time Apr 07, 2017 at 18:28 Initial Consult Date 04/08/17 Type of Consultation: Pulmonary Ordering Provider: ORLY LIN MD Subjective Patient remains comfortable on mechanical ventilation still requiring vasopressor support. Opens eyes but not following commands. Objective Vital Signs Date Time Temp Pulse Resp B/P Pulse Ox O2 Delivery O2 Flow Rate FiO2 04/11/17 08:00 97.7 93 36 98/63 95 04/11/17 08:00 40 04/11/17 06:15 Mechanical Ventilator Intake and Output 04/10/17 04/10/17 04/11/17 15:00 23:00 07:00 Intake Total 83.74 ml 2023.6 ml 346.3 ml Output Total 380 ml 260 ml 610 ml Balance -296.26 ml 1763.6 ml -263.7 ml Exam PHYSICAL EXAMINATION: GENERAL: Chronically ill appearing gentleman with contractures. Continues mechanical ventilation via tracheostomy VITAL SIGNS: As above NECK: Trach site appears clean and intact. CARDIAC: S1, S2, no added sounds or murmurs. CHEST: Diminished air entry bilaterally. ABDOMEN: Soft, nontender. No guarding or rebound. EXTREMITIES: No cyanosis, clubbing, edema. NEUROLOGIC: Unable to assess. Results/Medications Result Diagram: 04/11/17 0400 04/11/17 0415 Results 24 hrs Chest x-ray Alveolar edema Laboratory Tests Test 04/11/17 04:00 04/11/17 04:15 White Blood Count 18.2 #H Red Blood Count 2.66 L Hemoglobin 7.4 L Hematocrit 24.1 L Mean Corpuscular Volume 90.6 Mean Corpuscular Hemoglobin 27.8 L Mean Corpuscular Hemoglobin Concent 30.7 L Red Cell Distribution Width 16.2 H Platelet Count 146 # Mean Platelet Volume 10.1 Neutrophils % Lymphocytes % Monocytes % Eosinophils % Basophils % Nucleated Red Blood Cells % 0.0 Neutrophils # Lymphocytes # Monocytes # Eosinophils # Basophils # Nucleated Red Blood Cells # Sodium Level 144 Potassium Level 3.3 L Chloride Level 110 Carbon Dioxide Level 22 Anion Gap 15 Blood Urea Nitrogen 49 #H Creatinine 1.89 #H Glucose Level 152 Calcium Level 8.9 Phosphorus Level 6.4 #H Magnesium Level 1.8 Total Bilirubin 0.0 L Direct Bilirubin 0.00 Indirect Bilirubin 0.0 Aspartate Amino Transf (AST/SGOT) 17 # Alanine Aminotransferase (ALT/SGPT) 33 Alkaline Phosphatase 310 H Total Protein 5.8 L Albumin 2.2 L Globulin 3.60 H Albumin/Globulin Ratio 0.61 Medications Current Medications Norepinephrine/ Dextrose (Levophed/D5W) 500 ml @ 1.87 mls/hr TITRATE IV Last administered on 04/11/17 05:28; Admin Dose 0.93 MLS/HR; Start 04/07/17 at 20: 00 Miscellaneous Information This patient olson... PRN PRN XX WOUND CARE; Start at 02:30 Linezolid 300 ml @ 300 mls/hr Q12 IVPB Last administered on 04/11/17 08:59; Admin Dose 300 MLS/HR; Start 04/08/17 at 21:00 Fluconazole/ Sodium Chloride (Diflucan 100 Mg/ NS (Pmx)) 50 ml @ 50 mls/hr Q24H IVPB Last administered on 04/10/17 11:39; Admin Dose 50 MLS/HR; Start at 12:00 IV Flush (NS 10 ml) 10 ml PRN PRN IV IV PROTOCOL; Start 04/08/17 at 14:00 Amiodarone HCl 200 mg 200 mg BID NGT Last administered on 04/11/17 09:00; Admin Dose 200 MG; Start 04/08/17 at 21:00 Sodium Chloride (NS) 1,000 ml @ 75 mls/hr [id number] IV Last administered on 21:43; Admin Dose 75 MLS/HR; Start 04/09/17 at 08:30 Sodium Hypochlorite 1 applic 1 applic BID IRR Last administered on 04/11/17 08:59; Admin Dose 1 APPLIC; Start 04/09/17 at 16:00 Meropenem/Sodium Chloride (Merrem 1 Gm/50 ml (Pmx)) 50 ml @ 100 mls/hr Q8 IVPB Last administered on 04/11/17 05:26; Admin Dose 100 MLS/HR; Start 04/10/17 at 22:00 Assessment/Plan Chief Complaint/Hosp Course IMPRESSION 1. Acute on chronic hypoxemic and hypercapnic respiratory failure. 2. Severe metabolic acidosis. 3. Septic shock with multiorgan failure. 4. History of encephalopathy. Plan 1. Vasopressor support. 2. Broad-spectrum antibiotics. 3. IV fluids. Tube feeding as tolerated 4. Primary care team discussion with family noted. Overall prognosis very poor. Critical care time 40 minutes. DNR status noted. Problems: JUAN TORIBIO MD, [facility] Apr 11, 2017 09:58
[2017-04-11 10:08] LABS: ANISOCYTOSIS 1+ (0-0); EOSINOPHILS % (M) 2 % (0-7); MICROCYTOSIS 1+ (0-0); MONOCYTES % (M) 2 % (0-11); PLATELET ESTIMATE NORMAL; POLYCHROMASIA 1+ (0-0)
--- NOTE | 2017-04-11 10:22 | CONS ---
Date/Time of Note Date/Time of Note DATE: 04/11/17 TIME: 10:20 Consultation Date/Type/Reason Admit Date/Time Apr 07, 2017 at 18:28 Initial Consult Date 04/08/17 Type of Consultation: Pulmonary Referring Provider: ORLY LIN MD 24 HR Interval Summary Free Text/Dictation Shock likely secondary to sepsis Hypotension requiring IV pressor Respiratory failure, vent dependent Paroxysmal atrial fibrillation Preserved ejection fraction Pulmonary hypertension Acute kidney injury Encephalopathy Anemia -Patient transferred to ICU secondary to worsening hypotension requiring IV pressor recently. Titrate IV pressor to maintain SBP greater than 90 and/or map above 60. Antibiotics as per infectious disease. Continue to hold all antihypertensive medications. Vent management as per our pulmonary colleagues. Patient with recent episode of paroxysmal atrial fibrillation at [place], currently in sinus rhythm. Amiodarone was restarted. Maintain magnesium above 2.0 (supplementation has already been ordered). Subjective hx not possible: pt non-verbal Detailed Summary Respiratory: cough, no complaints, other (vent dependant), pain, pleuritic pain , shortness of breath, sputum, wheezing Cardiovascular: chest pain, edema, lightheadedness, no complaints, orthopenea, other (RRR), palpitations, paroxysmal nocturnal dyspnea Exam/Review of Systems Vital Signs Vitals Vital Signs Date Time Temp Pulse Resp B/P Pulse Ox O2 Delivery O2 Flow Rate FiO2 04/11/17 08:00 97.7 93 36 98/63 95 04/11/17 08:00 40 04/11/17 06:15 Mechanical Ventilator Intake and Output 04/10/17 04/10/17 04/11/17 15:00 23:00 07:00 Intake Total 83.74 ml 2023.6 ml 346.3 ml Output Total 380 ml 260 ml 610 ml Balance -296.26 ml 1763.6 ml -263.7 ml Results Result Diagram: 04/11/17 0400 04/11/17 0415 Results 24 hrs Laboratory Tests Test 04/11/17 04:00 04/11/17 04:15 White Blood Count 18.2 #H Red Blood Count 2.66 L Hemoglobin 7.4 L Hematocrit 24.1 L Mean Corpuscular Volume 90.6 Mean Corpuscular Hemoglobin 27.8 L Mean Corpuscular Hemoglobin Concent 30.7 L Red Cell Distribution Width 16.2 H Platelet Count 146 # Mean Platelet Volume 10.1 Neutrophils % Segmented Neutrophils % (Manual) 72 Band Neutrophils % (Manual) 12 H Lymphocytes % Lymphocytes % (Manual) 13 L Monocytes % Monocytes % (Manual) 2 Eosinophils % Eosinophils % (Manual) 2 Basophils % Nucleated Red Blood Cells % 0.0 Neutrophils # Neutrophils # (Manual) 13.5 H Band Neutrophils # 2.1 H Absolute Lymphocytes (Manual) 2.3 Lymphocytes # Monocytes # Absolute Monocytes (Manual) 0.3 Eosinophils # Basophils # Nucleated Red Blood Cells # Platelet Estimate NORMAL Polychromasia 1+ Anisocytosis 1+ Microcytosis 1+ Macrocytosis 1+ Rouleau 1+ Sodium Level 144 Potassium Level 3.3 L Chloride Level 110 Carbon Dioxide Level 22 Anion Gap 15 Blood Urea Nitrogen 49 #H Creatinine 1.89 #H Glucose Level 152 Calcium Level 8.9 Phosphorus Level 6.4 #H Magnesium Level 1.8 Total Bilirubin 0.0 L Direct Bilirubin 0.00 Indirect Bilirubin 0.0 Aspartate Amino Transf (AST/SGOT) 17 # Alanine Aminotransferase (ALT/SGPT) 33 Alkaline Phosphatase 310 H Total Protein 5.8 L Albumin 2.2 L Globulin 3.60 H Albumin/Globulin Ratio 0.61 Medications Medications Current Medications Norepinephrine/ Dextrose (Levophed/D5W) 500 ml @ 1.87 mls/hr TITRATE IV Last administered on 04/11/17 05:28; Admin Dose 0.93 MLS/HR; Start 04/07/17 at 20: 00 Miscellaneous Information This patient olson... PRN PRN XX WOUND CARE; Start at 02:30 Linezolid 300 ml @ 300 mls/hr Q12 IVPB Last administered on 04/11/17 08:59; Admin Dose 300 MLS/HR; Start 04/08/17 at 21:00 Fluconazole/ Sodium Chloride (Diflucan 100 Mg/ NS (Pmx)) 50 ml @ 50 mls/hr Q24H IVPB Last administered on 04/10/17 11:39; Admin Dose 50 MLS/HR; Start at 12:00 IV Flush (NS 10 ml) 10 ml PRN PRN IV IV PROTOCOL; Start 04/08/17 at 14:00 Amiodarone HCl 200 mg 200 mg BID NGT Last administered on 04/11/17 09:00; Admin Dose 200 MG; Start 04/08/17 at 21:00 Sodium Chloride (NS) 1,000 ml @ 75 mls/hr [id number] IV Last administered on 21:43; Admin Dose 75 MLS/HR; Start 04/09/17 at 08:30 Sodium Hypochlorite 1 applic 1 applic BID IRR Last administered on 04/11/17 08:59; Admin Dose 1 APPLIC; Start 04/09/17 at 16:00 Meropenem/Sodium Chloride 50 ml @ 100 mls/hr Q8 IVPB Last administered on 05:26; Admin Dose 100 MLS/HR; Start 04/10/17 at 22:00 Potassium Chloride (KCl 40 MEQ/250 ML NS) 250 ml @ 62.5 mls/hr ONCE ONCE IVPB ; Start 04/11/17 at 11:00; Stop 04/11/17 at 14:59 YESENIA DISLA MD Apr 11, 2017 10:22
[2017-04-11] MEDS ORDERED: POTASSIUM CHLORIDE 250 ML IVPB ONE (11:00)
--- NOTE | 2017-04-11 11:03 | CONS ---
Date/Time of Note Date/Time of Note DATE: 04/11/17 TIME: 11:03 Assessment/Plan Assessment/Plan Chief Complaint/Hosp Course Anemia likely of chronic disease- N-CYTIC WITH INCREASED RDW COMPLETE W-UP MONITOR FOR BLEEDING AND HEMOLYSIS PRBC NEEDED TO KEEP HB ABOVE 8 No active GI bleeding noted. Persistent leukocytosis Acute on chronic hypoxemic and hypercapnic respiratory failure. Severe metabolic acidosis. Status post septic shock with multiorgan failure. History of encephalopathy. Problems: Consultation Date/Type/Reason Admit Date/Time Apr 07, 2017 at 18:28 Date of Consultation: Apr 11, 2017 Type of Consultation: HEMEONC Referring Provider: MARLENA CARBAJAL Hx of Present Illness This is a 61-year-old gentleman with vent dependent respiratory failure with encephalopathy, transferred from [facility] where he was being treated for healthcare-associated pneumonia. pt was transferred to intensive care unit for worsening mentation, worsening blood pressure, worsening acidosis. Primary care team discussed with the patient's next of kin. The patient remained DO NOT RESUSCITATE, which is appropriate given significant comorbidities. 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, klebsiella pneumonia, pseudomonas Past Surgical History PEG tube, trache Family History Significant Family History: no pertinent family hx, other (Unable to assess secondary to patient's clinical condition) Social History Unable to assess secondary to patient's clinical condition Past Medical History Medical History: diabetes, hypertension, renal disease Past Surgical History Past Surgical Hx: other (Trach) Social History Alcohol Use: none Drug Use: none Exam/Review of Systems Vital Signs Vitals Vital Signs Date Time Temp Pulse Resp B/P Pulse Ox O2 Delivery O2 Flow Rate FiO2 04/11/17 08:00 97.7 93 36 98/63 95 04/11/17 08:00 40 04/11/17 06:15 Mechanical Ventilator Intake and Output 04/10/17 04/10/17 04/11/17 14:59 22:59 06:59 Intake Total 63.74 ml 1947.7 ml 442.2 ml Output Total 415 ml 260 ml 650 ml Balance -351.26 ml 1687.7 ml -207.8 ml Exam General: Patient is obtunded, intubated. Not responsive to verbal stimuli. HEENT: Cephalic atraumatic, nipples are pinpoint and sluggish no tracking. Chronic trach connected to vent, mucous membranes dry Neck: Supple with full range of motion. No rigidity or meningismus Lungs: Coarse breath sounds bilaterally Heart: Normal S1-S2, Regular rhythm and rate. No overt murmurs appreciated Abdomen: Soft , nondistended, PEG tube intact, hyperactive bowel sounds, fecal tube in place draining brown fecal matter Extremities: Normal to inspection, no edema no cyanosis Neurologic: Obtunded. Intubated. Pupils pinpoint and sluggish to light. Unable to assess full neurological status secondary to clinical condition Results Result Diagram: 04/11/17 0400 04/11/17 0415 Results 24 hrs Laboratory Tests Test 04/11/17 04:00 04/11/17 04:15 White Blood Count 18.2 #H Red Blood Count 2.66 L Hemoglobin 7.4 L Hematocrit 24.1 L Mean Corpuscular Volume 90.6 Mean Corpuscular Hemoglobin 27.8 L Mean Corpuscular Hemoglobin Concent 30.7 L Red Cell Distribution Width 16.2 H Platelet Count 146 # Mean Platelet Volume 10.1 Neutrophils % Segmented Neutrophils % (Manual) 72 Band Neutrophils % (Manual) 12 H Lymphocytes % Lymphocytes % (Manual) 13 L Monocytes % Monocytes % (Manual) 2 Eosinophils % Eosinophils % (Manual) 2 Basophils % Nucleated Red Blood Cells % 0.0 Neutrophils # Neutrophils # (Manual) 13.5 H Band Neutrophils # 2.1 H Absolute Lymphocytes (Manual) 2.3 Lymphocytes # Monocytes # Absolute Monocytes (Manual) 0.3 Eosinophils # Basophils # Nucleated Red Blood Cells # Platelet Estimate NORMAL Polychromasia 1+ Anisocytosis 1+ Microcytosis 1+ Macrocytosis 1+ Rouleau 1+ Sodium Level 144 Potassium Level 3.3 L Chloride Level 110 Carbon Dioxide Level 22 Anion Gap 15 Blood Urea Nitrogen 49 #H Creatinine 1.89 #H Glucose Level 152 Calcium Level 8.9 Phosphorus Level 6.4 #H Magnesium Level 1.8 Total Bilirubin 0.0 L Direct Bilirubin 0.00 Indirect Bilirubin 0.0 Aspartate Amino Transf (AST/SGOT) 17 # Alanine Aminotransferase (ALT/SGPT) 33 Alkaline Phosphatase 310 H Total Protein 5.8 L Albumin 2.2 L Globulin 3.60 H Albumin/Globulin Ratio 0.61 Medications Medications Current Medications Norepinephrine/ Dextrose (Levophed/D5W) 500 ml @ 1.87 mls/hr TITRATE IV Last administered on 04/11/17 05:28; Admin Dose 0.93 MLS/HR; Start 04/07/17 at 20: 00 Miscellaneous Information This patient olson... PRN PRN XX WOUND CARE; Start at 02:30 Linezolid 300 ml @ 300 mls/hr Q12 IVPB Last administered on 04/11/17 08:59; Admin Dose 300 MLS/HR; Start 04/08/17 at 21:00 Fluconazole/ Sodium Chloride (Diflucan 100 Mg/ NS (Pmx)) 50 ml @ 50 mls/hr Q24H IVPB Last administered on 04/10/17 11:39; Admin Dose 50 MLS/HR; Start at 12:00 IV Flush (NS 10 ml) 10 ml PRN PRN IV IV PROTOCOL; Start 04/08/17 at 14:00 Amiodarone HCl 200 mg 200 mg BID NGT Last administered on 04/11/17 09:00; Admin Dose 200 MG; Start 04/08/17 at 21:00 Sodium Chloride (NS) 1,000 ml @ 75 mls/hr [id number] IV Last administered on 21:43; Admin Dose 75 MLS/HR; Start 04/09/17 at 08:30 Sodium Hypochlorite 1 applic 1 applic BID IRR Last administered on 04/11/17 08:59; Admin Dose 1 APPLIC; Start 04/09/17 at 16:00 Meropenem/Sodium Chloride 50 ml @ 100 mls/hr Q8 IVPB Last administered on 05:26; Admin Dose 100 MLS/HR; Start 04/10/17 at 22:00 Potassium Chloride (KCl 40 MEQ/250 ML NS) 250 ml @ 62.5 mls/hr ONCE ONCE IVPB ; Start 04/11/17 at 11:00; Stop 04/11/17 at 14:59 EZLALEM MEANS MD Apr 11, 2017 11:03
[2017-04-11] MEDS: FLUCONAZOLE 100 MG/NS (PMX) 50 ML IVPB SCH (11:23)
--- NOTE | 2017-04-11 11:31 | PN ---
Date/Time of Note Date/Time of Note DATE: 04/11/17 TIME: 11:28 Assessment/Plan VTE Prophylaxis VTE Prophylaxis Intervention: other Assessment/Plan Chief Complaint/Hosp Course 1Septic Shock 2 Ventilatory Dependant Respiratory Failure S/p trach 3Healthcare associated PNA 4 Quadriplegia 5 diabetes mellitus 6 dysphagia status post PEG tube 7 Hyperkalemia 8 ARMANDO in the setting of Above 9 Severe Acidosis, lactic acidosis [id number] on vent non oliguric renal function better d/w nurse [id number] on vent non oliguric /creat increase d/u supportive care Problems: Exam/Review of Systems Vital Signs Vitals Vital Signs Date Time Temp Pulse Resp B/P Pulse Ox O2 Delivery O2 Flow Rate FiO2 04/11/17 08:00 97.7 93 36 98/63 95 04/11/17 08:00 40 04/11/17 06:15 Mechanical Ventilator Intake and Output 04/10/17 04/10/17 04/11/17 15:00 23:00 07:00 Intake Total 83.74 ml 2023.6 ml 346.3 ml Output Total 380 ml 260 ml 610 ml Balance -296.26 ml 1763.6 ml -263.7 ml Exam Head: normocephalic ENMT: nl external ears & nose Respiratory: diminished breath sounds Cardiovascular: regular rate and rhythm Gastrointestinal: nl liver, spleen, soft Musculoskeletal: nl extremities to inspection Results Result Diagram: 04/11/17 0400 04/11/17 0415 Results 24 hrs Laboratory Tests Test 04/11/17 04:00 04/11/17 04:15 White Blood Count 18.2 #H Red Blood Count 2.66 L Hemoglobin 7.4 L Hematocrit 24.1 L Mean Corpuscular Volume 90.6 Mean Corpuscular Hemoglobin 27.8 L Mean Corpuscular Hemoglobin Concent 30.7 L Red Cell Distribution Width 16.2 H Platelet Count 146 # Mean Platelet Volume 10.1 Neutrophils % Segmented Neutrophils % (Manual) 72 Band Neutrophils % (Manual) 12 H Lymphocytes % Lymphocytes % (Manual) 13 L Monocytes % Monocytes % (Manual) 2 Eosinophils % Eosinophils % (Manual) 2 Basophils % Nucleated Red Blood Cells % 0.0 Neutrophils # Neutrophils # (Manual) 13.5 H Band Neutrophils # 2.1 H Absolute Lymphocytes (Manual) 2.3 Lymphocytes # Monocytes # Absolute Monocytes (Manual) 0.3 Eosinophils # Basophils # Nucleated Red Blood Cells # Platelet Estimate NORMAL Polychromasia 1+ Anisocytosis 1+ Microcytosis 1+ Macrocytosis 1+ Rouleau 1+ Sodium Level 144 Potassium Level 3.3 L Chloride Level 110 Carbon Dioxide Level 22 Anion Gap 15 Blood Urea Nitrogen 49 #H Creatinine 1.89 #H Glucose Level 152 Calcium Level 8.9 Phosphorus Level 6.4 #H Magnesium Level 1.8 Total Bilirubin 0.0 L Direct Bilirubin 0.00 Indirect Bilirubin 0.0 Aspartate Amino Transf (AST/SGOT) 17 # Alanine Aminotransferase (ALT/SGPT) 33 Alkaline Phosphatase 310 H Total Protein 5.8 L Albumin 2.2 L Globulin 3.60 H Albumin/Globulin Ratio 0.61 Medications Medications Current Medications Norepinephrine/ Dextrose (Levophed/D5W) 500 ml @ 1.87 mls/hr TITRATE IV Last administered on 04/11/17 05:28; Admin Dose 0.93 MLS/HR; Start 04/07/17 at 20: 00 Miscellaneous Information This patient olson... PRN PRN XX WOUND CARE; Start at 02:30 Linezolid 300 ml @ 300 mls/hr Q12 IVPB Last administered on 04/11/17 08:59; Admin Dose 300 MLS/HR; Start 04/08/17 at 21:00 Fluconazole/ Sodium Chloride (Diflucan 100 Mg/ NS (Pmx)) 50 ml @ 50 mls/hr Q24H IVPB Last administered on 04/11/17 11:23; Admin Dose 50 MLS/HR; Start at 12:00 IV Flush (NS 10 ml) 10 ml PRN PRN IV IV PROTOCOL; Start 04/08/17 at 14:00 Amiodarone HCl 200 mg 200 mg BID NGT Last administered on 04/11/17 09:00; Admin Dose 200 MG; Start 04/08/17 at 21:00 Sodium Chloride (NS) 1,000 ml @ 75 mls/hr [id number] IV Last administered on 21:43; Admin Dose 75 MLS/HR; Start 04/09/17 at 08:30 Sodium Hypochlorite 1 applic 1 applic BID IRR Last administered on 04/11/17 08:59; Admin Dose 1 APPLIC; Start 04/09/17 at 16:00 Meropenem/Sodium Chloride 50 ml @ 100 mls/hr Q8 IVPB Last administered on 05:26; Admin Dose 100 MLS/HR; Start 04/10/17 at 22:00 Potassium Chloride (KCl 40 MEQ/250 ML NS) 250 ml @ 62.5 mls/hr ONCE ONCE IVPB Last administered on 04/11/17 11:14; Admin Dose 62.5 MLS/HR; Start at 11:00; Stop 04/11/17 at 14:59 MYRNA ELLER MD Apr 11, 2017 11:31
[2017-04-11 12:33] LABS: IRON 56 ug/dl (35-150)
[2017-04-11 12:44] LABS: TOTAL IRON BINDING CAPACITY 144 ug/dl (241-421)
[2017-04-11 13:15] LABS: URIC ACID 5.6 mg/dl (3.1-7.9)
[2017-04-11] MEDS: SOD CHLORIDE 0.9% 1,000 ML IV SCH (14:13)
[2017-04-11 14:22] LABS: FOLATE 16.5 ng/ml (2.8-20.0)
--- NOTE | 2017-04-11 15:46 | CONS ---
Date/Time of Note Date/Time of Note DATE: 04/11/17 TIME: 15:36 Assessment/Plan Assessment/Plan Chief Complaint/Hosp Course ID PROGRESS NOTE CURRENT ABX: =>Zyvox + Merrem + DIflucan 24H INTERVAL SUMMARY * * 04/08/17 CATHETER TIP (+) WOUND CULTURE Final Organism 1 KLEB PNEUMONIAE CARBAPENEMASE QUANTITY . . MULTI DRUG RESISTANT ORGANISM PHONED TO Tino DUNN, [place], FAISAL, PHARM AND A COPY TO AT 1102 03/11/17 BY AD. BARBARA ROSEN M.I.C. 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 Septic shock w/hypotension, lactic acidosis, leukocytosis => 2/2 04/08/17 CATHETER TIP (+) WOUND CULTURE Final Organism 1 KLEB PNEUMONIAE CARBAPENEMASE 2. Multiple unstageable infected wounds 3. 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 Healthcare-associated pneumonia=> (+)PSAR 5. Dysphagia. 6. Acute Kidney Injury -- improved (-)MRSA INVASIVES: PIV, Trach, Peg ABX ALLERGY: KNDA CURRENT ABX: =>Zyvox + Merrem + DIflucan ID RECOMMENDATIONS/PLAN: 1. Continue current ABX over the weekend * -> If not improvement, may need to add Colimycin IV for concern CRKP MDRO coverage 2.Avoiding renal toxic ABX: hence Colimycin IV deferred . Problems: Consultation Date/Type/Reason Admit Date/Time Apr 07, 2017 at 18:28 Initial Consult Date 04/11/17 Type of Consultation: id Referring Provider: MARLENA CARBAJAL Exam/Review of Systems Vital Signs Vitals Vital Signs Date Time Temp Pulse Resp B/P Pulse Ox O2 Delivery O2 Flow Rate FiO2 04/11/17 14:30 100 31 100/67 95 04/11/17 12:00 98.4 04/11/17 11:40 40 04/11/17 06:15 Mechanical Ventilator Intake and Output 04/10/17 04/10/17 04/11/17 14:59 22:59 06:59 Intake Total 63.74 ml 1947.7 ml 442.2 ml Output Total 415 ml 260 ml 650 ml Balance -351.26 ml 1687.7 ml -207.8 ml Results Result Diagram: 04/11/17 0400 04/11/17 0415 Results 24 hrs Laboratory Tests Test 04/11/17 04:00 04/11/17 04:15 White Blood Count 18.2 #H Red Blood Count 2.66 L Hemoglobin 7.4 L Hematocrit 24.1 L Mean Corpuscular Volume 90.6 Mean Corpuscular Hemoglobin 27.8 L Mean Corpuscular Hemoglobin Concent 30.7 L Red Cell Distribution Width 16.2 H Platelet Count 146 # Mean Platelet Volume 10.1 Neutrophils % Segmented Neutrophils % (Manual) 72 Band Neutrophils % (Manual) 12 H Lymphocytes % Lymphocytes % (Manual) 13 L Monocytes % Monocytes % (Manual) 2 Eosinophils % Eosinophils % (Manual) 2 Basophils % Nucleated Red Blood Cells % 0.0 Neutrophils # Neutrophils # (Manual) 13.5 H Band Neutrophils # 2.1 H Absolute Lymphocytes (Manual) 2.3 Lymphocytes # Monocytes # Absolute Monocytes (Manual) 0.3 Eosinophils # Basophils # Nucleated Red Blood Cells # Platelet Estimate NORMAL Polychromasia 1+ Anisocytosis 1+ Microcytosis 1+ Macrocytosis 1+ Rouleau 1+ Erythrocyte Sedimentation Rate 137 H Absolute Reticulocyte Count 0.027 Percent Reticulocyte Count 1.0 Uric Acid 5.6 Iron Level 56 Total Iron Binding Capacity 144 L Percent Iron Saturation 39 Ferritin 2370.0 H Lactate Dehydrogenase 659 H Vitamin B12 Level 998 H Folate 16.5 Thyroid Stimulating Hormone (TSH) 10.000 H Sodium Level 144 Potassium Level 3.3 L Chloride Level 110 Carbon Dioxide Level 22 Anion Gap 15 Blood Urea Nitrogen 49 #H Creatinine 1.89 #H Glucose Level 152 Calcium Level 8.9 Phosphorus Level 6.4 #H Magnesium Level 1.8 Total Bilirubin 0.0 L Direct Bilirubin 0.00 Indirect Bilirubin 0.0 Aspartate Amino Transf (AST/SGOT) 17 # Alanine Aminotransferase (ALT/SGPT) 33 Alkaline Phosphatase 310 H Total Protein 5.8 L Albumin 2.2 L Globulin 3.60 H Albumin/Globulin Ratio 0.61 Medications Medications Current Medications Norepinephrine/ Dextrose (Levophed/D5W) 500 ml @ 1.87 mls/hr TITRATE IV Last administered on 04/11/17 05:28; Admin Dose 0.93 MLS/HR; Start 04/07/17 at 20: 00 Miscellaneous Information This patient olson... PRN PRN XX WOUND CARE; Start at 02:30 Linezolid 300 ml @ 300 mls/hr Q12 IVPB Last administered on 04/11/17 08:59; Admin Dose 300 MLS/HR; Start 04/08/17 at 21:00 Fluconazole/ Sodium Chloride (Diflucan 100 Mg/ NS (Pmx)) 50 ml @ 50 mls/hr Q24H IVPB Last administered on 04/11/17 11:23; Admin Dose 50 MLS/HR; Start at 12:00 IV Flush (NS 10 ml) 10 ml PRN PRN IV IV PROTOCOL; Start 04/08/17 at 14:00 Amiodarone HCl 200 mg 200 mg BID NGT Last administered on 04/11/17 09:00; Admin Dose 200 MG; Start 04/08/17 at 21:00 Sodium Chloride (NS) 1,000 ml @ 75 mls/hr [id number] IV Last administered on 14:13; Admin Dose 75 MLS/HR; Start 04/09/17 at 08:30 Sodium Hypochlorite 1 applic 1 applic BID IRR Last administered on 04/11/17 08:59; Admin Dose 1 APPLIC; Start 04/09/17 at 16:00 Meropenem/Sodium Chloride (Merrem 1 Gm/50 ml (Pmx)) 50 ml @ 100 mls/hr Q12 IVPB ; Start 04/11/17 at 23:00 YONATAN TORRES NP Apr 11, 2017 15:46
[2017-04-12] VITALS (61 sets, daily range): BP systolic 86–128; BP diastolic 37–79; PULSE 80–101; RESP 2–29
[2017-04-12] MEDS: SOD CHLORIDE 0.9% 1,000 ML IV SCH ×2 (03:10→17:17)
[2017-04-12 05:26] LABS: ABNORMAL IP MESSAGE 1; HEMATOCRIT 23.7 % (42.0-52.0); HEMOGLOBIN 7.2 g/dl (14.0-18.0); MEAN CORPUSCULAR HGB CONC 30.4 g/dl (32.0-37.0); MEAN CORPUSCULAR VOLUME 92.2 fl (82.0-101.0); MEAN PLATELET VOLUME 10.4 fl (7.4-10.4); PLATELET COUNT 124 10^3/UL (140-415); POSITIVE DIFF @See below; RED BLOOD COUNT 2.57 10^6/ul (4.70-6.10); RED CELL DISTRIBUTION WIDTH 16.3 % (11.5-14.5)
[2017-04-12 06:02] LABS: CALCIUM 8.8 mg/dl (8.4-10.2); CREATININE 1.95 mg/dl (0.61-1.24); MAGNESIUM 1.7 mg/dl (1.7-2.5); POTASSIUM 3.3 mmol/L (3.5-5.1)
[2017-04-12 06:44] LABS: ANISOCYTOSIS 1+ (0-0); EOSINOPHILS % (M) 1 % (0-7); MICROCYTOSIS 1+ (0-0); PLATELET ESTIMATE DECREASED
[2017-04-12 07:30] LABS: GIANT THROMBO% (M) 1 % (0-0); MONOCYTES % (M) 4 % (0-11)
--- NOTE | 2017-04-12 07:49 | CONS ---
Date/Time of Note Date/Time of Note DATE: 04/12/17 TIME: 07:47 Assessment/Plan Assessment/Plan Chief Complaint/Hosp Course Sepsis Hypotension due to above Preserved LV function CRI Marked anemia PAF Problems: Additional Assessment/Plan 1) no AC at this time 2) vent therapy 3) off BP meds 4) pressors as needed 5) ABX Consultation Date/Type/Reason Admit Date/Time Apr 07, 2017 at 18:28 Initial Consult Date 04/11/17 Type of Consultation: cv Referring Provider: MARLENA CARBAJAL 24 HR Interval Summary Free Text/Dictation nonverbal, on vent Subjective hx not possible: pt critical status Exam/Review of Systems Vital Signs Vitals Vital Signs Date Time Temp Pulse Resp B/P Pulse Ox O2 Delivery O2 Flow Rate FiO2 04/12/17 06:15 90 28 120/72 100 04/12/17 05:19 40 04/12/17 04:00 98.0 04/11/17 06:15 Mechanical Ventilator Intake and Output 04/11/17 04/11/17 04/12/17 15:00 23:00 07:00 Intake Total 1215 ml 915.66 ml 301.8 ml Output Total 310 ml 525 ml 590 ml Balance 905 ml 390.66 ml -288.2 ml Exam Constitutional: non-verbal Head: atraumatic, normocephalic Neck: other (trach in situ), supple Respiratory: clear to auscultation Cardiovascular: regular rate and rhythm Gastrointestinal: soft Musculoskeletal: nl extremities to inspection Extremities: normal pulses Results Result Diagram: 04/12/17 0400 04/12/17 0400 Results 24 hrs Laboratory Tests Test 04/12/17 04:00 White Blood Count 24.0 #H Red Blood Count 2.57 L Hemoglobin 7.2 L Hematocrit 23.7 L Mean Corpuscular Volume 92.2 Mean Corpuscular Hemoglobin 28.0 L Mean Corpuscular Hemoglobin Concent 30.4 L Red Cell Distribution Width 16.3 H Platelet Count 124 L Mean Platelet Volume 10.4 Neutrophils % Segmented Neutrophils % (Manual) 68 Band Neutrophils % (Manual) 14 H Lymphocytes % Lymphocytes % (Manual) 13 L Monocytes % Monocytes % (Manual) 4 Eosinophils % Eosinophils % (Manual) 1 Basophils % Nucleated Red Blood Cells % 0.0 Neutrophils # Neutrophils # (Manual) 17.1 H Band Neutrophils # 3.3 H Absolute Lymphocytes (Manual) 3.1 H Lymphocytes # Monocytes # Absolute Monocytes (Manual) 0.9 Eosinophils # Basophils # Nucleated Red Blood Cells # Platelet Estimate DECREASED Giant Platelets 1 H Polychromasia Anisocytosis 1+ Microcytosis 1+ Sodium Level 148 H Potassium Level 3.3 L Chloride Level 114 H Carbon Dioxide Level 21 Anion Gap 16 Blood Urea Nitrogen 53 H Creatinine 1.95 H Glucose Level 130 Lactic Acid Level 1.3 Calcium Level 8.8 Magnesium Level 1.7 Medications Medications Current Medications Norepinephrine/ Dextrose (Levophed/D5W) 500 ml @ 1.87 mls/hr TITRATE IV Last administered on 04/11/17 05:28; Admin Dose 0.93 MLS/HR; Start 04/07/17 at 20: 00 Miscellaneous Information This patient olson... PRN PRN XX WOUND CARE; Start at 02:30 Linezolid 300 ml @ 300 mls/hr Q12 IVPB Last administered on 04/11/17 20:56; Admin Dose 300 MLS/HR; Start 04/08/17 at 21:00 Fluconazole/ Sodium Chloride (Diflucan 100 Mg/ NS (Pmx)) 50 ml @ 50 mls/hr Q24H IVPB Last administered on 04/11/17 11:23; Admin Dose 50 MLS/HR; Start at 12:00 IV Flush (NS 10 ml) 10 ml PRN PRN IV IV PROTOCOL; Start 04/08/17 at 14:00 Amiodarone HCl 200 mg 200 mg BID NGT Last administered on 04/11/17 20:55; Admin Dose 200 MG; Start 04/08/17 at 21:00 Sodium Chloride (NS) 1,000 ml @ 75 mls/hr [id number] IV Last administered on 03:10; Admin Dose 75 MLS/HR; Start 04/09/17 at 08:30 Sodium Hypochlorite 1 applic 1 applic BID IRR Last administered on 04/11/17 21:11; Admin Dose 1 APPLIC; Start 04/09/17 at 16:00 Meropenem/Sodium Chloride (Merrem 1 Gm/50 ml (Pmx)) 50 ml @ 100 mls/hr Q12 IVPB Last administered on 04/11/17 23:37; Admin Dose 100 MLS/HR; Start 04/11 at 23:00 HAMLET SOMMERS MD Apr 12, 2017 07:49
[2017-04-12] MEDS: SODIUM HYPOCHLORITE 1/40% 1L IRRIG IRR SCH (09:34)
[2017-04-12] MEDS: MEROPENEM 1 GM/50ML(PMX) 50 ML IVPB SCH ×2 (09:34→20:52)
[2017-04-12] MEDS: AMIODARONE 200 MG TAB NGT SCH ×2 (09:35→20:52)
[2017-04-12] MEDS: LINEZOLID 600 MG/D5W (PMX) 300 ML IVPB SCH ×2 (09:35→22:33)
--- NOTE | 2017-04-12 09:56 | CONS ---
Date/Time of Note Date/Time of Note DATE: 04/12/17 TIME: 09:54 Consult Date/Type/Reason Admit Date/Time Apr 07, 2017 at 18:28 Initial Consult Date 04/08/17 Type of Consultation: Pulmonary Ordering Provider: MARLENA CARBAJAL Subjective Patient weaned off vasopressors this morning. Remains hemodynamically stable. Neurologically no changes. Objective Vital Signs Date Time Temp Pulse Resp B/P Pulse Ox O2 Delivery O2 Flow Rate FiO2 04/12/17 08:15 93 28 125/62 96 Mechanical Ventilator 04/12/17 08:14 45 04/12/17 08:00 97.8 Intake and Output 04/11/17 04/11/17 04/12/17 15:00 23:00 07:00 Intake Total 1215 ml 915.66 ml 371.8 ml Output Total 310 ml 525 ml 670 ml Balance 905 ml 390.66 ml -298.2 ml Exam PHYSICAL EXAMINATION: GENERAL: Chronically ill appearing gentleman with contractures. Continues mechanical ventilation via tracheostomy VITAL SIGNS: As above NECK: Trach site appears clean and intact. CARDIAC: S1, S2, no added sounds or murmurs. CHEST: Diminished air entry bilaterally. ABDOMEN: Soft, nontender. No guarding or rebound. EXTREMITIES: No cyanosis, clubbing, edema. NEUROLOGIC: Unable to assess. Results/Medications Result Diagram: 04/12/17 0400 04/12/17 0400 Results 24 hrs Laboratory Tests Test 04/12/17 04:00 White Blood Count 24.0 #H Red Blood Count 2.57 L Hemoglobin 7.2 L Hematocrit 23.7 L Mean Corpuscular Volume 92.2 Mean Corpuscular Hemoglobin 28.0 L Mean Corpuscular Hemoglobin Concent 30.4 L Red Cell Distribution Width 16.3 H Platelet Count 124 L Mean Platelet Volume 10.4 Neutrophils % Segmented Neutrophils % (Manual) 68 Band Neutrophils % (Manual) 14 H Lymphocytes % Lymphocytes % (Manual) 13 L Monocytes % Monocytes % (Manual) 4 Eosinophils % Eosinophils % (Manual) 1 Basophils % Nucleated Red Blood Cells % 0.0 Neutrophils # Neutrophils # (Manual) 17.1 H Band Neutrophils # 3.3 H Absolute Lymphocytes (Manual) 3.1 H Lymphocytes # Monocytes # Absolute Monocytes (Manual) 0.9 Eosinophils # Basophils # Nucleated Red Blood Cells # Platelet Estimate DECREASED Giant Platelets 1 H Polychromasia Anisocytosis 1+ Microcytosis 1+ Sodium Level 148 H Potassium Level 3.3 L Chloride Level 114 H Carbon Dioxide Level 21 Anion Gap 16 Blood Urea Nitrogen 53 H Creatinine 1.95 H Glucose Level 130 Lactic Acid Level 1.3 Calcium Level 8.8 Magnesium Level 1.7 Medications Current Medications Norepinephrine/ Dextrose (Levophed/D5W) 500 ml @ 1.87 mls/hr TITRATE IV Last administered on 04/11/17 05:28; Admin Dose 0.93 MLS/HR; Start 04/07/17 at 20: 00 Miscellaneous Information This patient olson... PRN PRN XX WOUND CARE; Start at 02:30 Linezolid 300 ml @ 300 mls/hr Q12 IVPB Last administered on 04/12/17 09:35; Admin Dose 300 MLS/HR; Start 04/08/17 at 21:00 Fluconazole/ Sodium Chloride (Diflucan 100 Mg/ NS (Pmx)) 50 ml @ 50 mls/hr Q24H IVPB Last administered on 04/11/17 11:23; Admin Dose 50 MLS/HR; Start at 12:00 IV Flush (NS 10 ml) 10 ml PRN PRN IV IV PROTOCOL; Start 04/08/17 at 14:00 Amiodarone HCl 200 mg 200 mg BID NGT Last administered on 04/12/17 09:35; Admin Dose 200 MG; Start 04/08/17 at 21:00 Sodium Chloride (NS) 1,000 ml @ 75 mls/hr [id number] IV Last administered on 03:10; Admin Dose 75 MLS/HR; Start 04/09/17 at 08:30 Sodium Hypochlorite 1 applic 1 applic BID IRR Last administered on 04/12/17 09:34; Admin Dose 1 APPLIC; Start 04/09/17 at 16:00 Meropenem/Sodium Chloride (Merrem 1 Gm/50 ml (Pmx)) 50 ml @ 100 mls/hr Q12 IVPB Last administered on 04/12/17 09:34; Admin Dose 100 MLS/HR; Start 04/11 at 23:00 Assessment/Plan Chief Complaint/Hosp Course IMPRESSION 1. Acute on chronic hypoxemic and hypercapnic respiratory failure. 2. Severe metabolic acidosis. Now improved. Persistent leukocytosis 3. Status post septic shock with multiorgan failure. 4. History of encephalopathy. 5. Anemia likely of chronic disease. No active GI bleeding noted. Plan 1. Monitor off vasopressors 2. Broad-spectrum antibiotics. 3. IV fluids. Tube feeding as tolerated 4. Primary care team discussion with family noted. 5. Transfuse 1 unit packed red blood cells maintain blood pressure. Overall prognosis very poor. Transfer back to [place]. Problems: JUAN TORIBIO MD, [facility] Apr 12, 2017 09:56
--- NOTE | 2017-04-12 11:05 | PN ---
Date/Time of Note Date/Time of Note DATE: 04/12/17 TIME: 10:59 Assessment/Plan VTE Prophylaxis VTE Prophylaxis Intervention: SCD's (anemia) Lines/Catheters IV Catheter Type (from Nrs): PICC Line Central line still needed: Yes Urinary Cath still in place: Yes Reason Cath still needed: other (indicate) Assessment/Plan Assessment/Plan 61-year-old chronically vegetative state male cardiac arrestAfter status post PEG tube and chronically ventilator dependent via trach currently admitted and managed as follows: 1. Septic shock secondary to Pseudomonas respiratory infection, UTI as well as MDR Klebsiella pneumonia infection of cathther tip 2. Chronic respiratory failure with chronic ventilator dependence from chronic ischemic encephalopathy 3. Debilitated state status post cardiac arrest with likely hypoxic ischemic encephalopathy 4. Status post metabolic acidosis from septic shock 5. Chronic sacral decubiti 6. Paroxysmal atrial fibrillation on amiodarone 7. Acute renal failure rule out chronic kidney disease 8. DNR Plan: Transfusion today / replace lytes Continue broad-spectrum antibiotics Continue to try to wean off pressors Appreciate all consults Poor intermediate designer prognosis, poor chance of any meaningful recovery / discuss with family re: futility of care / patient will benefit from hospice. further interventions per course CRITICAL CARE TIME: >35 mins Subjective 24 Hr Interval Summary Free Text/Dictation back on pressor support Exam/Review of Systems Vital Signs Vitals Vital Signs Date Time Temp Pulse Resp B/P Pulse Ox O2 Delivery O2 Flow Rate FiO2 04/12/17 08:15 93 28 125/62 96 Mechanical Ventilator 04/12/17 08:14 45 04/12/17 08:00 97.8 Intake and Output 04/11/17 04/11/17 04/12/17 15:00 23:00 07:00 Intake Total 1215 ml 915.66 ml 371.8 ml Output Total 310 ml 525 ml 670 ml Balance 905 ml 390.66 ml -298.2 ml Exam Constitutional: non-verbal, other ( not following commands or tracking), Eyes open spontaneously, No oriented, No distress Psych: other (unable to assess) Eyes: PERRL, No icteric ENMT: No mucosa pink and moist (dry) Neck: trach to vent Respiratory: diminished breath sounds, + bibasal crackles No labored breathing Cardiovascular: regular rate and rhythm, No murmurs/extra sounds Gastrointestinal: soft, non-tender, bowel sounds, other (PEG tube noted with no cellulitis or discharge) Extremities: No edema Neurological: lethargic, other (altered, eyes opening spontaneously but no tracking or following commands), No nl mental status, No nl speech, No nl strength Results Result Diagram: 04/12/17 0400 04/12/17 0400 Results 24 hrs Laboratory Tests Test 04/12/17 04:00 White Blood Count 24.0 #H Red Blood Count 2.57 L Hemoglobin 7.2 L Hematocrit 23.7 L Mean Corpuscular Volume 92.2 Mean Corpuscular Hemoglobin 28.0 L Mean Corpuscular Hemoglobin Concent 30.4 L Red Cell Distribution Width 16.3 H Platelet Count 124 L Mean Platelet Volume 10.4 Neutrophils % Segmented Neutrophils % (Manual) 68 Band Neutrophils % (Manual) 14 H Lymphocytes % Lymphocytes % (Manual) 13 L Monocytes % Monocytes % (Manual) 4 Eosinophils % Eosinophils % (Manual) 1 Basophils % Nucleated Red Blood Cells % 0.0 Neutrophils # Neutrophils # (Manual) 17.1 H Band Neutrophils # 3.3 H Absolute Lymphocytes (Manual) 3.1 H Lymphocytes # Monocytes # Absolute Monocytes (Manual) 0.9 Eosinophils # Basophils # Nucleated Red Blood Cells # Platelet Estimate DECREASED Giant Platelets 1 H Polychromasia Anisocytosis 1+ Microcytosis 1+ Sodium Level 148 H Potassium Level 3.3 L Chloride Level 114 H Carbon Dioxide Level 21 Anion Gap 16 Blood Urea Nitrogen 53 H Creatinine 1.95 H Glucose Level 130 Lactic Acid Level 1.3 Calcium Level 8.8 Magnesium Level 1.7 Medications Medications Current Medications Norepinephrine/ Dextrose (Levophed/D5W) 500 ml @ 1.87 mls/hr TITRATE IV Last administered on 04/11/17 05:28; Admin Dose 0.93 MLS/HR; Start 04/07/17 at 20: 00 Miscellaneous Information This patient olson... PRN PRN XX WOUND CARE; Start at 02:30 Linezolid 300 ml @ 300 mls/hr Q12 IVPB Last administered on 04/12/17 09:35; Admin Dose 300 MLS/HR; Start 04/08/17 at 21:00 Fluconazole/ Sodium Chloride (Diflucan 100 Mg/ NS (Pmx)) 50 ml @ 50 mls/hr Q24H IVPB Last administered on 12/17/17at 11:23; Admin Dose 50 MLS/HR; Start at 12:00 IV Flush (NS 10 ml) 10 ml PRN PRN IV IV PROTOCOL; Start 04/08/17 at 14:00 Amiodarone HCl 200 mg 200 mg BID NGT Last administered on 04/12/17 09:35; Admin Dose 200 MG; Start 04/08/17 at 21:00 Sodium Chloride (NS) 1,000 ml @ 75 mls/hr [id number] IV Last administered on 03:10; Admin Dose 75 MLS/HR; Start 04/09/17 at 08:30 Sodium Hypochlorite 1 applic 1 applic BID IRR Last administered on 04/12/17 09:34; Admin Dose 1 APPLIC; Start 04/09/17 at 16:00 Meropenem/Sodium Chloride (Merrem 1 Gm/50 ml (Pmx)) 50 ml @ 100 mls/hr Q12 IVPB Last administered on 04/12/17 09:34; Admin Dose 100 MLS/HR; Start 04/11 at 23:00 Procedures Procedures PROCEDURE: XR Cervical Spine. CLINICAL INDICATION: eval for lytic lesions TECHNIQUE: Portable supine AP, and cross-table lateral views of the cervical spine were performed. The images were reviewed on a PACS workstation. COMPARISON: None. FINDINGS: The AP view is limited due to positioning and skin fold artifact. Tracheostomy tube is seen. C7-T1 level is not adequately visualized on the lateral view. The odontoid is also not well visualized. The vertebral body alignment, height and osseous mineralization are normal. Severe C6-7 disc height loss and endplate degenerative changes are visualized. The posterior elements are unremarkable. There are calcifications in the right neck. No radiopaque foreign body is identified. No acute fracture, subluxation or osseous lesion is identified. IMPRESSION: Limited exam. CT is recommended. Severe C6-7 degenerative disc disease. Physician Eddie Date Time Electronically viewed and signed by Physician Eddie on 04/11/2017 03: 40 CS/ CC: ORLY LIN MD PROCEDURE: XR Lumbar Spine. CLINICAL INDICATION: Pain. Evaluate for lytic lesions. TECHNIQUE: Lumbar spine x-rays, single frontal view. COMPARISON: None. FINDINGS: Bony mineralization appears normal. Vertebral body heights appear normal on this single frontal view. The pedicles are symmetrically unremarkable. Bony cortices appear contiguous. Scattered small osteophytes are seen along the lumbar spine. IMPRESSION: Mild degenerative changes of the lumbar spine. No obvious bony lesion. RPTAT: [facility]ST .Kami Gonzalez MD, MD Date Time Electronically viewed and signed by .Kami Gonzalez MD, MD on 04/11/2017 06:26 .T/ CC: ORLY LIN MD PROCEDURE: Thoracic Spine. CLINICAL INDICATION: Pain. Evaluate for lytic lesions. TECHNIQUE: Thoracic spine x-ray, single frontal view. COMPARISON: Chest x-ray 04/09/2017. FINDINGS: Bony mineralization appears normal. A tracheostomy tube is in place within the airway. The right upper extremity PICC terminates within the SVC. Vertebral body heights appear normal on this single frontal view. The pedicles are symmetric in appearance. There is no obvious bony lesion. Bony cortices appear contiguous. Patchy interstitial and alveolar opacification is seen within the visualized lung parenchyma. IMPRESSION: Unremarkable limited thoracic spine x-ray. Support lines and tubes, as above. Patchy parenchymal and alveolar opacification, unchanged. RPTAT: [facility]ST .Kami Gonzalez MD, Date Time Electronically viewed and signed by .Kami Gonzalez MD, on 04/11/2017 06:23 .T/ CC: ORLY LIN MD, B[place]AT[place] M. Apr 12, 2017 11:05
[2017-04-12] MEDS ORDERED: POTASSIUM CHLORIDE 250 ML IVPB ONE (11:30)
[2017-04-12] MEDS ORDERED: MAGNESIUM SULFATE 1 GM/D5W 100 ML IVPB ONE (11:30)
[2017-04-12] MEDS: FLUCONAZOLE 100 MG/NS (PMX) 50 ML IVPB SCH (12:50)
--- NOTE | 2017-04-12 13:38 | CONS ---
Date/Time of Note Date/Time of Note DATE: 04/12/17 TIME: 13:36 Assessment/Plan Assessment/Plan Additional Assessment/Plan 1Septic Shock 2 Ventilatory Dependant Respiratory Failure S/p trach 3Healthcare associated PNA 4 Quadriplegia 5 diabetes mellitus 6 dysphagia status post PEG tube 7 Hyperkalemia 8 ARMANDO in the setting of Above 9 Severe Acidosis, lactic acidosis [id number] on vent non oliguric renal function better d/w nurse [id number] on vent non oliguric /creat increase d/u supportive care [id number] On vent, Non oliguric, Supportive care, Palliative care consulted, No acute indication for HD. Pt is DNR Consultation Date/Type/Reason Admit Date/Time Apr 07, 2017 at 18:28 Initial Consult Date 04/08/17 Type of Consultation: Renal Referring Provider: MARLENA CARBAJAL 24 HR Interval Summary Free Text/Dictation Off pressors, Good UO, Palliative care consulted Subjective hx not possible: pt critical status Constitutional: requiring O2 Exam/Review of Systems Vital Signs Vitals Vital Signs Date Time Temp Pulse Resp B/P Pulse Ox O2 Delivery O2 Flow Rate FiO2 04/12/17 12:00 91 28 97/79 98 Mechanical Ventilator 04/12/17 11:25 40 04/12/17 08:00 97.8 Intake and Output 04/11/17 04/11/17 04/12/17 15:00 23:00 07:00 Intake Total 1215 ml 915.66 ml 371.8 ml Output Total 310 ml 525 ml 670 ml Balance 905 ml 390.66 ml -298.2 ml Exam ENMT: mucosa pink and moist, other (trach) Respiratory: crackles/rales, No diminished breath sounds Cardiovascular: regular rate and rhythm, No edema Gastrointestinal: soft Neurological: unresponsive Skin: No diaphoresis Results Result Diagram: 04/12/17 0400 04/12/17 0400 Results 24 hrs Laboratory Tests Test 04/12/17 04:00 White Blood Count 24.0 #H Red Blood Count 2.57 L Hemoglobin 7.2 L Hematocrit 23.7 L Mean Corpuscular Volume 92.2 Mean Corpuscular Hemoglobin 28.0 L Mean Corpuscular Hemoglobin Concent 30.4 L Red Cell Distribution Width 16.3 H Platelet Count 124 L Mean Platelet Volume 10.4 Neutrophils % Segmented Neutrophils % (Manual) 68 Band Neutrophils % (Manual) 14 H Lymphocytes % Lymphocytes % (Manual) 13 L Monocytes % Monocytes % (Manual) 4 Eosinophils % Eosinophils % (Manual) 1 Basophils % Nucleated Red Blood Cells % 0.0 Neutrophils # Neutrophils # (Manual) 17.1 H Band Neutrophils # 3.3 H Absolute Lymphocytes (Manual) 3.1 H Lymphocytes # Monocytes # Absolute Monocytes (Manual) 0.9 Eosinophils # Basophils # Nucleated Red Blood Cells # Platelet Estimate DECREASED Giant Platelets 1 H Polychromasia Anisocytosis 1+ Microcytosis 1+ Sodium Level 148 H Potassium Level 3.3 L Chloride Level 114 H Carbon Dioxide Level 21 Anion Gap 16 Blood Urea Nitrogen 53 H Creatinine 1.95 H Glucose Level 130 Lactic Acid Level 1.3 Calcium Level 8.8 Magnesium Level 1.7 Medications Medications Current Medications Norepinephrine/ Dextrose (Levophed/D5W) 500 ml @ 1.87 mls/hr TITRATE IV Last administered on 04/11/17 05:28; Admin Dose 0.93 MLS/HR; Start 04/07/17 at 20: 00 Miscellaneous Information This patient olson... PRN PRN XX WOUND CARE; Start at 02:30 Linezolid 300 ml @ 300 mls/hr Q12 IVPB Last administered on 04/12/17 09:35; Admin Dose 300 MLS/HR; Start 04/08/17 at 21:00 Fluconazole/ Sodium Chloride (Diflucan 100 Mg/ NS (Pmx)) 50 ml @ 50 mls/hr Q24H IVPB Last administered on 04/12/17 12:50; Admin Dose 50 MLS/HR; Start at 12:00 IV Flush (NS 10 ml) 10 ml PRN PRN IV IV PROTOCOL; Start 04/08/17 at 14:00 Amiodarone HCl 200 mg 200 mg BID NGT Last administered on 04/12/17 09:35; Admin Dose 200 MG; Start 04/08/17 at 21:00 Sodium Chloride (NS) 1,000 ml @ 75 mls/hr [id number] IV Last administered on 03:10; Admin Dose 75 MLS/HR; Start 04/09/17 at 08:30 Sodium Hypochlorite 1 applic 1 applic BID IRR Last administered on 12/18/17at 09:34; Admin Dose 1 APPLIC; Start 04/09/17 at 16:00 Meropenem/Sodium Chloride 50 ml @ 100 mls/hr Q12 IVPB Last administered on t 09:34; Admin Dose 100 MLS/HR; Start 04/11/17 at 23:00 Potassium Chloride (KCl 40 MEQ/250 ML NS) 250 ml @ 62.5 mls/hr ONCE ONCE IVPB Last administered on 04/12/17t 12:50; Admin Dose 62.5 MLS/HR; Start at 11:30; Stop 04/12/17 at 15:29 CONCETTA LOCKE MD Apr 12, 2017 13:38
--- NOTE | 2017-04-12 13:38 | CONS ---
Date/Time of Note Date/Time of Note DATE: 04/12/17 TIME: 13:36 Assessment/Plan Assessment/Plan Chief Complaint/Hosp Course SUBJECTIVE: No acute changes. The patient remains obtunded, in no distress MICROBIOLOGY: Blood and urine cultures remain negative. Endotracheal aspirate growing Pseudomonas aeruginosa. ANTIMICROBIALS: 1. The patient is on IV Meropenem. 2. Zyvox. 3. Fluconazole. INDWELLINGS: Trach, PEG, [place], PICC line placed on 04/08/2017. PHYSICAL EXAMINATION: GENERAL: This is a chronically ill-appearing, middle-aged man who is in no distress. HEENT: Head atraumatic, normocephalic. Sclerae anicteric. Buccal mucosa dry. NECK: Supple. Tracheostomy present. CHEST: Rise symmetrical. Breath sounds with bilateral rhonchi. HEART: S1, S2. ABDOMEN: Soft. Bowel tones hypoactive. EXTREMITIES: Contracted. ASSESSMENT: 1. Septic shock. 2. Multiple unstageable infected wounds. 3. Healthcare-associated pneumonia. 4. Dysphagia. 5. Acute renal failure. 6. Persistent vegetative state. PLAN: The patient remains unchanged. Continue present care, antibiotics, ongoing discussion with family re futility of care. Problems: Consultation Date/Type/Reason Admit Date/Time Apr 07, 2017 at 18:28 Initial Consult Date 04/11/17 Type of Consultation: ID Referring Provider: MARLENA CARBAJAL Exam/Review of Systems Vital Signs Vitals Vital Signs Date Time Temp Pulse Resp B/P Pulse Ox O2 Delivery O2 Flow Rate FiO2 04/12/17 12:00 91 28 97/79 98 Mechanical Ventilator 04/12/17 11:25 40 04/12/17 08:00 97.8 Intake and Output 04/11/17 04/11/17 04/12/17 15:00 23:00 07:00 Intake Total 1215 ml 915.66 ml 371.8 ml Output Total 310 ml 525 ml 670 ml Balance 905 ml 390.66 ml -298.2 ml Results Result Diagram: 04/12/17 0400 04/12/17 0400 Results 24 hrs Laboratory Tests Test 04/12/17 04:00 White Blood Count 24.0 #H Red Blood Count 2.57 L Hemoglobin 7.2 L Hematocrit 23.7 L Mean Corpuscular Volume 92.2 Mean Corpuscular Hemoglobin 28.0 L Mean Corpuscular Hemoglobin Concent 30.4 L Red Cell Distribution Width 16.3 H Platelet Count 124 L Mean Platelet Volume 10.4 Neutrophils % Segmented Neutrophils % (Manual) 68 Band Neutrophils % (Manual) 14 H Lymphocytes % Lymphocytes % (Manual) 13 L Monocytes % Monocytes % (Manual) 4 Eosinophils % Eosinophils % (Manual) 1 Basophils % Nucleated Red Blood Cells % 0.0 Neutrophils # Neutrophils # (Manual) 17.1 H Band Neutrophils # 3.3 H Absolute Lymphocytes (Manual) 3.1 H Lymphocytes # Monocytes # Absolute Monocytes (Manual) 0.9 Eosinophils # Basophils # Nucleated Red Blood Cells # Platelet Estimate DECREASED Giant Platelets 1 H Polychromasia Anisocytosis 1+ Microcytosis 1+ Sodium Level 148 H Potassium Level 3.3 L Chloride Level 114 H Carbon Dioxide Level 21 Anion Gap 16 Blood Urea Nitrogen 53 H Creatinine 1.95 H Glucose Level 130 Lactic Acid Level 1.3 Calcium Level 8.8 Magnesium Level 1.7 Medications Medications Current Medications Norepinephrine/ Dextrose (Levophed/D5W) 500 ml @ 1.87 mls/hr TITRATE IV Last administered on 04/11/17 05:28; Admin Dose 0.93 MLS/HR; Start 04/07/17 at 20: 00 Miscellaneous Information This patient olson... PRN PRN XX WOUND CARE; Start at 02:30 Linezolid 300 ml @ 300 mls/hr Q12 IVPB Last administered on 04/12/17 09:35; Admin Dose 300 MLS/HR; Start 04/08/17 at 21:00 Fluconazole/ Sodium Chloride (Diflucan 100 Mg/ NS (Pmx)) 50 ml @ 50 mls/hr Q24H IVPB Last administered on 04/12/17 12:50; Admin Dose 50 MLS/HR; Start at 12:00 IV Flush (NS 10 ml) 10 ml PRN PRN IV IV PROTOCOL; Start 04/08/17 at 14:00 Amiodarone HCl 200 mg 200 mg BID NGT Last administered on 04/12/17 09:35; Admin Dose 200 MG; Start 04/08/17 at 21:00 Sodium Chloride (NS) 1,000 ml @ 75 mls/hr [id number] IV Last administered on 03:10; Admin Dose 75 MLS/HR; Start 04/09/17 at 08:30 Sodium Hypochlorite 1 applic 1 applic BID IRR Last administered on 04/12/17 09:34; Admin Dose 1 APPLIC; Start 04/09/17 at 16:00 Meropenem/Sodium Chloride 50 ml @ 100 mls/hr Q12 IVPB Last administered on 09:34; Admin Dose 100 MLS/HR; Start 04/11/17 at 23:00 Potassium Chloride (KCl 40 MEQ/250 ML NS) 250 ml @ 62.5 mls/hr ONCE ONCE IVPB Last administered on 04/12/17 12:50; Admin Dose 62.5 MLS/HR; Start at 11:30; Stop 04/12/17 at 15:29 ANA VALDES NP Apr 12, 2017 13:38
[2017-04-12] MEDS ORDERED: ALTEPLASE (CATHFLO) 2 MG INJ CATHETER PRN (20:00)
[2017-04-12] MEDS: HYPROMELLOSE 0.5% 15 ML OPH BOTH EYES SCH (20:56)
--- NOTE | 2017-04-12 23:18 | CONS ---
Date/Time of Note Date/Time of Note DATE: 04/12/17 TIME: 23:17 Assessment/Plan Assessment/Plan Chief Complaint/Hosp Course Anemia likely of chronic disease- N-CYTIC WITH INCREASED RDW COMPLETE W-UP MONITOR FOR BLEEDING AND HEMOLYSIS PRBC NEEDED TO KEEP HB ABOVE 8 No active GI bleeding noted. Persistent leukocytosis Acute on chronic hypoxemic and hypercapnic respiratory failure. Severe metabolic acidosis. Status post septic shock with multiorgan failure. History of encephalopathy. Problems: Consultation Date/Type/Reason Admit Date/Time Apr 07, 2017 at 18:28 Initial Consult Date 04/11/17 [facility] Referring Provider: MARLENA CARBAJAL 24 HR Interval Summary Free Text/Dictation ALL NOTED D/W RN W-UP IN PROGRESS Exam/Review of Systems Vital Signs Vitals Vital Signs Date Time Temp Pulse Resp B/P Pulse Ox O2 Delivery O2 Flow Rate FiO2 04/12/17 21:11 85 25 96 40 04/12/17 20:00 113/42 Mechanical Ventilator 04/12/17 12:30 97.7 Intake and Output 04/11/17 04/11/17 04/12/17 15:00 23:00 07:00 Intake Total 1215 ml 915.66 ml 371.8 ml Output Total 310 ml 525 ml 670 ml Balance 905 ml 390.66 ml -298.2 ml Exam GENERAL: This is a chronically ill-appearing, middle-aged man who is in no distress. HEENT: Head atraumatic, normocephalic. Sclerae anicteric. Buccal mucosa dry. NECK: Supple. Tracheostomy present. CHEST: Rise symmetrical. Breath sounds with bilateral rhonchi. HEART: S1, S2. ABDOMEN: Soft. Bowel tones hypoactive. EXTREMITIES: Contracted. Results Result Diagram: 04/12/17 0400 04/12/17 0400 Results 24 hrs Laboratory Tests Test 04/12/17 04:00 White Blood Count 24.0 #H Red Blood Count 2.57 L Hemoglobin 7.2 L Hematocrit 23.7 L Mean Corpuscular Volume 92.2 Mean Corpuscular Hemoglobin 28.0 L Mean Corpuscular Hemoglobin Concent 30.4 L Red Cell Distribution Width 16.3 H Platelet Count 124 L Mean Platelet Volume 10.4 Neutrophils % Segmented Neutrophils % (Manual) 68 Band Neutrophils % (Manual) 14 H Lymphocytes % Lymphocytes % (Manual) 13 L Monocytes % Monocytes % (Manual) 4 Eosinophils % Eosinophils % (Manual) 1 Basophils % Nucleated Red Blood Cells % 0.0 Neutrophils # Neutrophils # (Manual) 17.1 H Band Neutrophils # 3.3 H Absolute Lymphocytes (Manual) 3.1 H Lymphocytes # Monocytes # Absolute Monocytes (Manual) 0.9 Eosinophils # Basophils # Nucleated Red Blood Cells # Platelet Estimate DECREASED Giant Platelets 1 H Polychromasia Anisocytosis 1+ Microcytosis 1+ Sodium Level 148 H Potassium Level 3.3 L Chloride Level 114 H Carbon Dioxide Level 21 Anion Gap 16 Blood Urea Nitrogen 53 H Creatinine 1.95 H Glucose Level 130 Lactic Acid Level 1.3 Calcium Level 8.8 Magnesium Level 1.7 Medications Medications Current Medications Norepinephrine/ Dextrose (Levophed/D5W) 500 ml @ 1.87 mls/hr TITRATE IV Last administered on 04/11/17 05:28; Admin Dose 0.93 MLS/HR; Start 04/07/17 at 20: 00 Miscellaneous Information This patient olson... PRN PRN XX WOUND CARE; Start at 02:30 Linezolid 300 ml @ 300 mls/hr Q12 IVPB Last administered on 04/12/17 22:33; Admin Dose 300 MLS/HR; Start 04/08/17 at 21:00 Fluconazole/ Sodium Chloride (Diflucan 100 Mg/ NS (Pmx)) 50 ml @ 50 mls/hr Q24H IVPB Last administered on 04/12/17 12:50; Admin Dose 50 MLS/HR; Start at 12:00 IV Flush (NS 10 ml) 10 ml PRN PRN IV IV PROTOCOL; Start 04/08/17 at 14:00 Amiodarone HCl 200 mg 200 mg BID NGT Last administered on 04/12/17 20:52; Admin Dose 200 MG; Start 04/08/17 at 21:00 Sodium Chloride (NS) 1,000 ml @ 75 mls/hr [id number] IV Last administered on 17:17; Admin Dose 75 MLS/HR; Start 04/09/17 at 08:30 Sodium Hypochlorite 1 applic 1 applic BID IRR Last administered on 04/12/17 09:34; Admin Dose 1 APPLIC; Start 04/09/17 at 16:00 Meropenem/Sodium Chloride (Merrem 1 Gm/50 ml (Pmx)) 50 ml @ 100 mls/hr Q12 IVPB Last administered on 04/12/17 20:52; Admin Dose 100 MLS/HR; Start 04/11 at 23:00 Hypromellose (Isopto Tears) 2 drop BID BOTH EYES Last administered on 20:56; Admin Dose 2 DROP; Start 04/12/17 at 21:00 ZELALEM MEANS MD Apr 12, 2017 23:18
[2017-04-13] VITALS (29 sets, daily range): BP systolic 88–130; BP diastolic 39–67; PULSE 76–88; RESP 23–29
[2017-04-13] MEDS: SOD CHLORIDE 0.9% 1,000 ML IV SCH (00:04)
[2017-04-13 01:27] LABS: PROTEIN, TOTAL 6.1 g/dL (6.1-8.1)
[2017-04-13] MEDS: SODIUM HYPOCHLORITE 1/40% 1L IRRIG IRR SCH ×2 (04:00→14:07)
[2017-04-13 05:02] LABS: BASOPHIL # 0.1 10^3/ul (0.0-0.1); BASOPHILS % 0.3 % (0.0-2.0); EOSINOPHILS # 0.9 10^3/ul (0.0-0.5); EOSINOPHILS % 5.2 % (0.0-7.0); HEMATOCRIT 25.7 % (42.0-52.0); LYMPHOCYTES # 1.9 10^3/ul (0.8-2.9); LYMPHOCYTES % 11.5 % (15.0-51.0); MEAN CORPUSCULAR HEMOGLOBIN 28.7 pg (29.0-33.0); MEAN CORPUSCULAR HGB CONC 31.1 g/dl (32.0-37.0); MEAN CORPUSCULAR VOLUME 92.1 fl (82.0-101.0); MEAN PLATELET VOLUME 10.4 fl (7.4-10.4); MONOCYTE # 0.6 10^3/ul (0.3-0.9); MONOCYTES % 3.5 % (0.0-11.0); PLATELET COUNT 105 10^3/UL (140-415); RED BLOOD COUNT 2.79 10^6/ul (4.70-6.10); RED CELL DISTRIBUTION WIDTH 15.9 % (11.5-14.5); WHITE BLOOD COUNT 16.4 10^3/ul (4.8-10.8)
[2017-04-13 05:27] LABS: CALCIUM 8.3 mg/dl (8.4-10.2); CREATININE 2.02 mg/dl (0.61-1.24); MAGNESIUM 1.7 mg/dl (1.7-2.5); PHOSPHORUS 5.4 mg/dl (2.5-4.9)
[2017-04-13 05:43] LABS: POTASSIUM 2.7 mmol/L (3.5-5.1)
[2017-04-13] MEDS: POTASSIUM CHLORIDE 30 MEQ in DEXTROSE 5% 250 ML IVPB SCH ×2 (07:01→10:08)
--- NOTE | 2017-04-13 07:18 | CONS ---
Date/Time of Note Date/Time of Note DATE: 04/13/17 TIME: 07:16 Assessment/Plan Assessment/Plan Additional Assessment/Plan Sepsis syndrome Encephalopathy secondary to cardiac arrest PEG trach Hospital-acquired pneumonia Sacral decubiti Malnutrition Septic shock Contact family members today and establish goals of care. Consultation Date/Type/Reason Admit Date/Time Apr 07, 2017 at 18:28 Hx of Present Illness Information is taken from patient's medical records. Patient is PEG trach encephalopathic and there are no family members available.'s a 61-year-old gentleman was transferred from [facility] in shock with a systolic blood pressure of 70 ALG presumed to be secondary to pneumonia patient required basis pressor support he has been treated broad-spectrum IV antibiotic coverage he has been seen by infectious disease pulmonary medicine hospitalist nephrology consultations. Remains critically ill in the intensive care unit. He is a DO NOT RESUSCITATE. I am asked to look over medical records contact family members concerns insofar as goals of care. Past Medical History Medical History: diabetes, hypertension, renal disease Past Surgical History Past Surgical Hx: other (Trach) Social History Alcohol Use: none Drug Use: none Exam/Review of Systems Vital Signs Vitals Vital Signs Date Time Temp Pulse Resp B/P Pulse Ox O2 Delivery O2 Flow Rate FiO2 04/13/17 05:03 81 24 99 40 04/13/17 04:00 96.9 101/53 Mechanical Ventilator Intake and Output 04/12/17 04/12/17 04/13/17 15:00 23:00 07:00 Intake Total 1107.5 ml 762.5 ml 525 ml Output Total 1000 ml 520 ml 130 ml Balance 107.5 ml 242.5 ml 395 ml Exam Constitutional: distress, frail Respiratory: congested cough, crackles/rales, diminished breath sounds Cardiovascular: nl pulses, regular rate and rhythm Gastrointestinal: bowel sounds Results Result Diagram: 04/13/17 0416 04/13/17 0416 Results 24 hrs Laboratory Tests Test 04/13/17 04:16 04/13/17 04:39 White Blood Count 16.4 #H Red Blood Count 2.79 L Hemoglobin 8.0 L Hematocrit 25.7 L Mean Corpuscular Volume 92.1 Mean Corpuscular Hemoglobin 28.7 L Mean Corpuscular Hemoglobin Concent 31.1 L Red Cell Distribution Width 15.9 H Platelet Count 105 L Mean Platelet Volume 10.4 Neutrophils % 79.0 H Lymphocytes % 11.5 L Monocytes % 3.5 Eosinophils % 5.2 Basophils % 0.3 Nucleated Red Blood Cells % 0.0 Neutrophils # 13.0 H Lymphocytes # 1.9 Monocytes # 0.6 Eosinophils # 0.9 H Basophils # 0.1 Nucleated Red Blood Cells # 0.0 Sodium Level 149 H Potassium Level 2.7 *L Chloride Level 117 H Carbon Dioxide Level 19 L Anion Gap 16 Blood Urea Nitrogen 48 H Creatinine 2.02 H Glucose Level 160 Calcium Level 8.3 L Phosphorus Level 5.4 H Magnesium Level 1.7 Lab Scanned Report BLOOD TRANSFUSION Medications Medications Current Medications Norepinephrine/ Dextrose (Levophed/D5W) 500 ml @ 1.87 mls/hr TITRATE IV Last administered on 04/11/17 05:28; Admin Dose 0.93 MLS/HR; Start 04/07/17 at 20: 00 Miscellaneous Information This patient olson... PRN PRN XX WOUND CARE; Start at 02:30 Linezolid 300 ml @ 300 mls/hr Q12 IVPB Last administered on 04/12/17 22:33; Admin Dose 300 MLS/HR; Start 04/08/17 at 21:00 Fluconazole/ Sodium Chloride (Diflucan 100 Mg/ NS (Pmx)) 50 ml @ 50 mls/hr Q24H IVPB Last administered on 04/12/17 12:50; Admin Dose 50 MLS/HR; Start at 12:00 IV Flush (NS 10 ml) 10 ml PRN PRN IV IV PROTOCOL; Start 04/08/17 at 14:00 Amiodarone HCl 200 mg 200 mg BID NGT Last administered on 04/12/17 20:52; Admin Dose 200 MG; Start 04/08/17 at 21:00 Sodium Chloride (NS) 1,000 ml @ 75 mls/hr [id number] IV Last administered on 00:04; Admin Dose 75 MLS/HR; Start 04/09/17 at 08:30 Sodium Hypochlorite 1 applic 1 applic BID IRR Last administered on 04/13/17 04:00; Admin Dose 1 APPLIC; Start 04/09/17 at 16:00 Meropenem/Sodium Chloride (Merrem 1 Gm/50 ml (Pmx)) 50 ml @ 100 mls/hr Q12 IVPB Last administered on 04/12/17 20:52; Admin Dose 100 MLS/HR; Start 04/11 at 23:00 Hypromellose 2 drop 2 drop BID BOTH EYES Last administered on 04/12/17 20:56 ; Admin Dose 2 DROP; Start 04/12/17 at 21:00 Potassium Chloride/Dextrose (KCl/D5W) 265 ml @ 88.333 mls/ hr Q3H IVPB Last administered on 04/13/17 07:01; Admin Dose 88.333 MLS/HR; Start 04/13/17 at 07:30; Stop 04/13/17 at 13:29 ELICIA JAY Apr 13, 2017 07:18
[2017-04-13] MEDS ORDERED: POTASSIUM CHLORIDE 30 MEQ in DEXTROSE 5% 250 ML IVPB ONE (07:30)
--- NOTE | 2017-04-13 07:39 | CONS ---
Date/Time of Note Date/Time of Note DATE: 04/13/17 TIME: 07:37 Assessment/Plan Assessment/Plan Chief Complaint/Hosp Course Sepsis Hypotension due to above Preserved LV function CRI Marked anemia Thrombocytopenia PAF Problems: Additional Assessment/Plan 1) no AC 2) vent care 3) palliative care consult 4) amiodarone 5) monitor BP off pressors Consultation Date/Type/Reason Admit Date/Time Apr 07, 2017 at 18:28 Initial Consult Date 04/11/17 Type of Consultation: cards Referring Provider: MARLENA CARBAJAL 24 HR Interval Summary Free Text/Dictation on vent, non verbal Subjective hx not possible: pt non-verbal, pt critical status Exam/Review of Systems Vital Signs Vitals Vital Signs Date Time Temp Pulse Resp B/P Pulse Ox O2 Delivery O2 Flow Rate FiO2 04/13/17 05:03 81 24 99 40 04/13/17 04:00 96.9 101/53 Mechanical Ventilator Intake and Output 04/12/17 04/12/17 04/13/17 15:00 23:00 07:00 Intake Total 1107.5 ml 762.5 ml 525 ml Output Total 1000 ml 520 ml 130 ml Balance 107.5 ml 242.5 ml 395 ml Exam Constitutional: non-verbal Head: atraumatic, normocephalic ENMT: other (trach) Neck: jvd Respiratory: diminished breath sounds Cardiovascular: regular rate and rhythm Gastrointestinal: soft Musculoskeletal: muscle weakness Results Result Diagram: 04/13/17 0416 04/13/17 0416 Results 24 hrs Laboratory Tests Test 04/13/17 04:16 04/13/17 04:39 White Blood Count 16.4 #H Red Blood Count 2.79 L Hemoglobin 8.0 L Hematocrit 25.7 L Mean Corpuscular Volume 92.1 Mean Corpuscular Hemoglobin 28.7 L Mean Corpuscular Hemoglobin Concent 31.1 L Red Cell Distribution Width 15.9 H Platelet Count 105 L Mean Platelet Volume 10.4 Neutrophils % 79.0 H Lymphocytes % 11.5 L Monocytes % 3.5 Eosinophils % 5.2 Basophils % 0.3 Nucleated Red Blood Cells % 0.0 Neutrophils # 13.0 H Lymphocytes # 1.9 Monocytes # 0.6 Eosinophils # 0.9 H Basophils # 0.1 Nucleated Red Blood Cells # 0.0 Sodium Level 149 H Potassium Level 2.7 *L Chloride Level 117 H Carbon Dioxide Level 19 L Anion Gap 16 Blood Urea Nitrogen 48 H Creatinine 2.02 H Glucose Level 160 Calcium Level 8.3 L Phosphorus Level 5.4 H Magnesium Level 1.7 Lab Scanned Report BLOOD TRANSFUSION Medications Medications Current Medications Norepinephrine/ Dextrose (Levophed/D5W) 500 ml @ 1.87 mls/hr TITRATE IV Last administered on 04/11/17 05:28; Admin Dose 0.93 MLS/HR; Start 04/07/17 at 20: 00 Miscellaneous Information This patient olson... PRN PRN XX WOUND CARE; Start at 02:30 Linezolid 300 ml @ 300 mls/hr Q12 IVPB Last administered on 04/12/17 22:33; Admin Dose 300 MLS/HR; Start 04/08/17 at 21:00 Fluconazole/ Sodium Chloride (Diflucan 100 Mg/ NS (Pmx)) 50 ml @ 50 mls/hr Q24H IVPB Last administered on 04/12/17 12:50; Admin Dose 50 MLS/HR; Start at 12:00 IV Flush (NS 10 ml) 10 ml PRN PRN IV IV PROTOCOL; Start 04/08/17 at 14:00 Amiodarone HCl 200 mg 200 mg BID NGT Last administered on 04/12/17 20:52; Admin Dose 200 MG; Start 04/08/17 at 21:00 Sodium Chloride (NS) 1,000 ml @ 75 mls/hr [id number] IV Last administered on 00:04; Admin Dose 75 MLS/HR; Start 04/09/17 at 08:30 Sodium Hypochlorite 1 applic 1 applic BID IRR Last administered on 04/13/17 04:00; Admin Dose 1 APPLIC; Start 04/09/17 at 16:00 Meropenem/Sodium Chloride (Merrem 1 Gm/50 ml (Pmx)) 50 ml @ 100 mls/hr Q12 IVPB Last administered on 04/12/17 20:52; Admin Dose 100 MLS/HR; Start 04/11 at 23:00 Hypromellose 2 drop 2 drop BID BOTH EYES Last administered on 04/12/17 20:56 ; Admin Dose 2 DROP; Start 04/12/17 at 21:00 Potassium Chloride/Dextrose (KCl/D5W) 265 ml @ 88.333 mls/ hr Q3H IVPB Last administered on 04/13/17t 07:01; Admin Dose 88.333 MLS/HR; Start 04/13/17 at 07:30; Stop 04/13/17 at 13:29 HAMLET SOMMERS MD Apr 13, 2017 07:39
[2017-04-13] MEDS: HYPROMELLOSE 0.5% 15 ML OPH BOTH EYES SCH (08:55)
[2017-04-13] MEDS: AMIODARONE 200 MG TAB NGT SCH (08:55)
[2017-04-13] MEDS: LINEZOLID 600 MG/D5W (PMX) 300 ML IVPB SCH (08:55)
[2017-04-13] MEDS: MEROPENEM 1 GM/50ML(PMX) 50 ML IVPB SCH (08:55)
--- NOTE | 2017-04-13 09:25 | PN ---
Date/Time of Note Date/Time of Note DATE: 04/13/17 TIME: 09:25 Assessment/Plan VTE Prophylaxis VTE Prophylaxis Intervention: SCD's Lines/Catheters IV Catheter Type (from Nrs): PICC Line Central line still needed: Yes Urinary Cath still in place: Yes Reason Cath still needed: urinary retention Assessment/Plan Assessment/Plan 1. Septic shock secondary to Pseudomonas respiratory infection, UTI as well as MDR Klebsiella pneumonia infection of catheter tip - Patient stable off pressor support - ID on board and recommendations appreciated. continue on current antibiotic course - Pulmonology on board and appreciate consultation - Remains afebrile and WBC trending down 2. Chronic respiratory failure with chronic ventilator dependence from chronic ischemic encephalopathy - Pulm on board. Can be d/c back to [facility] when accepted 3. Debilitated state status post cardiac arrest with likely hypoxic ischemic encephalopathy - stable 4. Status post metabolic acidosis from septic shock 5. Chronic sacral decubitus - wound care 6. Paroxysmal atrial fibrillation on amiodarone - HR stable - Cardiology on board and will continue on amiodarone 7. Acute renal failure rule out chronic kidney disease - Cr continues to trend upward - Nephrology on board and consultation appreciated 8. hypokalemia - replaced - will monitor 9. Disposition - Poor [facility] prognosis, poor chance of any meaningful recovery / discuss with family re: futility of care / patient will benefit from hospice. - Palliative on board - Stable for Transfer to [facility] when accepted >35 minutes of critical care time spent with patient Subjective 24 Hr Interval Summary Free Text/Dictation no changes overnight. Patient remains intubated and not following commands. No acute overnight events. BP stable off pressor support. Exam/Review of Systems Vital Signs Vitals Vital Signs Date Time Temp Pulse Resp B/P Pulse Ox O2 Delivery O2 Flow Rate FiO2 04/13/17 05:03 81 24 99 40 04/13/17 04:00 96.9 101/53 Mechanical Ventilator Intake and Output 04/12/17 04/12/17 04/13/17 15:00 23:00 07:00 Intake Total 1107.5 ml 762.5 ml 525 ml Output Total 1000 ml 570 ml 130 ml Balance 107.5 ml 192.5 ml 395 ml Exam Constitutional: frail, non-verbal, other (opens eyes spontaneously. not following commands. not tracking with eyes) Psych: other (unable to assess) Head: atraumatic, normocephalic Eyes: PERRL, nl sclera ENMT: other (dry mucous membranes) Neck: supple Respiratory: crackles/rales, diminished breath sounds, No wheezing Cardiovascular: regular rate and rhythm, No edema, No murmurs/extra sounds Gastrointestinal: non-tender, soft, No distended, No rebound or guarding Neurological: unresponsive Skin: No rash or lesions Lymph: nl lymph nodes Results Result Diagram: 04/13/17 0416 04/13/17 0416 Results 24 hrs Laboratory Tests Test 04/13/17 04:16 04/13/17 04:39 White Blood Count 16.4 #H Red Blood Count 2.79 L Hemoglobin 8.0 L Hematocrit 25.7 L Mean Corpuscular Volume 92.1 Mean Corpuscular Hemoglobin 28.7 L Mean Corpuscular Hemoglobin Concent 31.1 L Red Cell Distribution Width 15.9 H Platelet Count 105 L Mean Platelet Volume 10.4 Neutrophils % 79.0 H Lymphocytes % 11.5 L Monocytes % 3.5 Eosinophils % 5.2 Basophils % 0.3 Nucleated Red Blood Cells % 0.0 Neutrophils # 13.0 H Lymphocytes # 1.9 Monocytes # 0.6 Eosinophils # 0.9 H Basophils # 0.1 Nucleated Red Blood Cells # 0.0 Sodium Level 149 H Potassium Level 2.7 *L Chloride Level 117 H Carbon Dioxide Level 19 L Anion Gap 16 Blood Urea Nitrogen 48 H Creatinine 2.02 H Glucose Level 160 Calcium Level 8.3 L Phosphorus Level 5.4 H Magnesium Level 1.7 Lab Scanned Report BLOOD TRANSFUSION Medications Medications Current Medications Norepinephrine/ Dextrose (Levophed/D5W) 500 ml @ 1.87 mls/hr TITRATE IV Last administered on 04/11/17 05:28; Admin Dose 0.93 MLS/HR; Start 04/07/17 at 20: 00 Miscellaneous Information This patient olson... PRN PRN XX WOUND CARE; Start at 02:30 Linezolid 300 ml @ 300 mls/hr Q12 IVPB Last administered on 04/13/17 08:55; Admin Dose 300 MLS/HR; Start 04/08/17 at 21:00 Fluconazole/ Sodium Chloride (Diflucan 100 Mg/ NS (Pmx)) 50 ml @ 50 mls/hr Q24H IVPB Last administered on 04/12/17 12:50; Admin Dose 50 MLS/HR; Start at 12:00 IV Flush (NS 10 ml) 10 ml PRN PRN IV IV PROTOCOL; Start 04/08/17 at 14:00 Amiodarone HCl 200 mg 200 mg BID NGT Last administered on 04/13/17 08:55; Admin Dose 200 MG; Start 04/08/17 at 21:00 Sodium Chloride (NS) 1,000 ml @ 75 mls/hr [id number] IV Last administered on 00:04; Admin Dose 75 MLS/HR; Start 04/09/17 at 08:30 Sodium Hypochlorite 1 applic 1 applic BID IRR Last administered on 04/13/17 04:00; Admin Dose 1 APPLIC; Start 04/09/17 at 16:00 Meropenem/Sodium Chloride (Merrem 1 Gm/50 ml (Pmx)) 50 ml @ 100 mls/hr Q12 IVPB Last administered on 04/13/17 08:55; Admin Dose 100 MLS/HR; Start 04/11 at 23:00 Hypromellose 2 drop 2 drop BID BOTH EYES Last administered on 04/13/17 08:55 ; Admin Dose 2 DROP; Start 04/12/17 at 21:00 Potassium Chloride/Dextrose (KCl/D5W) 265 ml @ 88.333 mls/ hr Q3H IVPB Last administered on 04/13/17 07:01; Admin Dose 88.333 MLS/HR; Start 04/13/17 at 07:30; Stop 04/13/17 at 13:29 DOUG MCALLISTER MD Apr 13, 2017 09:25
--- NOTE | 2017-04-13 09:55 | CONS ---
Date/Time of Note Date/Time of Note DATE: 04/13/17 TIME: 09:53 Consult Date/Type/Reason Admit Date/Time Apr 07, 2017 at 18:28 Initial Consult Date 04/08/17 Type of Consultation: Pulmonary Ordering Provider: MARLENA CARBAJAL Subjective No significant changes. Remains stable overall. No new events. Objective Vital Signs Date Time Temp Pulse Resp B/P Pulse Ox O2 Delivery O2 Flow Rate FiO2 04/13/17 08:00 83 04/13/17 05:03 24 99 40 04/13/17 04:00 96.9 101/53 Mechanical Ventilator Intake and Output 04/12/17 04/12/17 04/13/17 15:00 23:00 07:00 Intake Total 1107.5 ml 762.5 ml 525 ml Output Total 1000 ml 570 ml 130 ml Balance 107.5 ml 192.5 ml 395 ml Exam PHYSICAL EXAMINATION: GENERAL: Chronically ill appearing gentleman with contractures. Continues mechanical ventilation via tracheostomy VITAL SIGNS: As above NECK: Trach site appears clean and intact. CARDIAC: S1, S2, no added sounds or murmurs. CHEST: Diminished air entry bilaterally. ABDOMEN: Soft, nontender. No guarding or rebound. EXTREMITIES: No cyanosis, clubbing, edema. NEUROLOGIC: Unable to assess. Results/Medications Result Diagram: 04/13/17 0416 04/13/17 0416 Results 24 hrs Laboratory Tests Test 04/13/17 04:16 04/13/17 04:39 White Blood Count 16.4 #H Red Blood Count 2.79 L Hemoglobin 8.0 L Hematocrit 25.7 L Mean Corpuscular Volume 92.1 Mean Corpuscular Hemoglobin 28.7 L Mean Corpuscular Hemoglobin Concent 31.1 L Red Cell Distribution Width 15.9 H Platelet Count 105 L Mean Platelet Volume 10.4 Neutrophils % 79.0 H Lymphocytes % 11.5 L Monocytes % 3.5 Eosinophils % 5.2 Basophils % 0.3 Nucleated Red Blood Cells % 0.0 Neutrophils # 13.0 H Lymphocytes # 1.9 Monocytes # 0.6 Eosinophils # 0.9 H Basophils # 0.1 Nucleated Red Blood Cells # 0.0 Sodium Level 149 H Potassium Level 2.7 *L Chloride Level 117 H Carbon Dioxide Level 19 L Anion Gap 16 Blood Urea Nitrogen 48 H Creatinine 2.02 H Glucose Level 160 Calcium Level 8.3 L Phosphorus Level 5.4 H Magnesium Level 1.7 Lab Scanned Report BLOOD TRANSFUSION Medications Current Medications Norepinephrine/ Dextrose (Levophed/D5W) 500 ml @ 1.87 mls/hr TITRATE IV Last administered on 04/11/17 05:28; Admin Dose 0.93 MLS/HR; Start 04/07/17 at 20: 00 Miscellaneous Information This patient olson... PRN PRN XX WOUND CARE; Start at 02:30 Linezolid 300 ml @ 300 mls/hr Q12 IVPB Last administered on 04/13/17 08:55; Admin Dose 300 MLS/HR; Start 04/08/17 at 21:00 Fluconazole/ Sodium Chloride (Diflucan 100 Mg/ NS (Pmx)) 50 ml @ 50 mls/hr Q24H IVPB Last administered on 04/12/17 12:50; Admin Dose 50 MLS/HR; Start at 12:00 IV Flush (NS 10 ml) 10 ml PRN PRN IV IV PROTOCOL; Start 04/08/17 at 14:00 Amiodarone HCl 200 mg 200 mg BID NGT Last administered on 04/13/17 08:55; Admin Dose 200 MG; Start 04/08/17 at 21:00 Sodium Chloride (NS) 1,000 ml @ 75 mls/hr [id number] IV Last administered on 00:04; Admin Dose 75 MLS/HR; Start 04/09/17 at 08:30 Sodium Hypochlorite 1 applic 1 applic BID IRR Last administered on 04/13/17 04:00; Admin Dose 1 APPLIC; Start 04/09/17 at 16:00 Meropenem/Sodium Chloride (Merrem 1 Gm/50 ml (Pmx)) 50 ml @ 100 mls/hr Q12 IVPB Last administered on 04/13/17 08:55; Admin Dose 100 MLS/HR; Start 04/11 at 23:00 Hypromellose 2 drop 2 drop BID BOTH EYES Last administered on 04/13/17 08:55 ; Admin Dose 2 DROP; Start 04/12/17 at 21:00 Potassium Chloride/Dextrose (KCl/D5W) 265 ml @ 88.333 mls/ hr Q3H IVPB Last administered on 04/13/17t 07:01; Admin Dose 88.333 MLS/HR; Start 04/13/17 at 07:30; Stop 04/13/17 at 13:29 Assessment/Plan Chief Complaint/Hosp Course IMPRESSION 1. Acute on chronic hypoxemic and hypercapnic respiratory failure. 2. Severe metabolic acidosis. Now improved. Persistent leukocytosis 3. Status post septic shock with multiorgan failure. 4. History of encephalopathy. 5. Anemia likely of chronic disease. No active GI bleeding noted. 6. Hypokalemia and high natremia with mild metabolic acidosis Plan 1. Monitor off vasopressors 2. Broad-spectrum antibiotics. 3. IV fluids. Tube feeding as tolerated, replace electrolytes 4. Primary care team discussion with family noted. Transfer back to [facility] Overall prognosis very poor. Problems: JUAN TORIBIO MD, [facility] Apr 13, 2017 09:55
--- NOTE | 2017-04-13 13:08 | CONS ---
Date/Time of Note Date/Time of Note DATE: 04/13/17 TIME: 13:07 Assessment/Plan Assessment/Plan Chief Complaint/Hosp Course SUBJECTIVE: No acute changes. The patient remains obtunded, in no distress, no fevers MICROBIOLOGY: Blood and urine cultures remain negative. Endotracheal aspirate growing Pseudomonas aeruginosa. ANTIMICROBIALS: 1. The patient is on IV Meropenem. 2. Zyvox. 3. Fluconazole. INDWELLINGS: Trach, PEG, [place], PICC line placed on 04/08/2017. PHYSICAL EXAMINATION: GENERAL: This is a chronically ill-appearing, middle-aged man who is in persistent vegetative state. HEENT: Head atraumatic, normocephalic. Sclerae anicteric. Buccal mucosa dry. NECK: Supple. Tracheostomy present. CHEST: Rise symmetrical. Breath sounds with bilateral rhonchi. HEART: S1, S2. ABDOMEN: Soft. Bowel tones hypoactive. EXTREMITIES: Contracted. ASSESSMENT: 1. S/p septic shock. 2. Multiple unstageable infected wounds. 3. Healthcare-associated pneumonia. 4. Dysphagia. 5. Acute renal failure. 6. Persistent vegetative state. PLAN: The patient remains unchanged. Continue present care, antibiotics, ongoing discussion with family re futility of care. Consider hospice [facility] staff Problems: Consultation Date/Type/Reason Admit Date/Time Apr 07, 2017 at 18:28 Initial Consult Date 04/11/17 Type of Consultation: ID Referring Provider: MARLENA CARBAJAL Exam/Review of Systems Vital Signs Vitals Vital Signs Date Time Temp Pulse Resp B/P Pulse Ox O2 Delivery O2 Flow Rate FiO2 04/13/17 11:00 84 23 96/46 98 Mechanical Ventilator Trach Collar 04/13/17 09:25 40 04/13/17 08:00 97.2 Intake and Output 04/12/17 04/12/17 04/13/17 15:00 23:00 07:00 Intake Total 1107.5 ml 762.5 ml 640 ml Output Total 1000 ml 570 ml 205 ml Balance 107.5 ml 192.5 ml 435 ml Results Result Diagram: 04/13/17 0416 04/13/17 0416 Results 24 hrs Laboratory Tests Test 04/13/17 04:16 04/13/17 04:39 White Blood Count 16.4 #H Red Blood Count 2.79 L Hemoglobin 8.0 L Hematocrit 25.7 L Mean Corpuscular Volume 92.1 Mean Corpuscular Hemoglobin 28.7 L Mean Corpuscular Hemoglobin Concent 31.1 L Red Cell Distribution Width 15.9 H Platelet Count 105 L Mean Platelet Volume 10.4 Neutrophils % 79.0 H Lymphocytes % 11.5 L Monocytes % 3.5 Eosinophils % 5.2 Basophils % 0.3 Nucleated Red Blood Cells % 0.0 Neutrophils # 13.0 H Lymphocytes # 1.9 Monocytes # 0.6 Eosinophils # 0.9 H Basophils # 0.1 Nucleated Red Blood Cells # 0.0 Sodium Level 149 H Potassium Level 2.7 *L Chloride Level 117 H Carbon Dioxide Level 19 L Anion Gap 16 Blood Urea Nitrogen 48 H Creatinine 2.02 H Glucose Level 160 Calcium Level 8.3 L Phosphorus Level 5.4 H Magnesium Level 1.7 Lab Scanned Report BLOOD TRANSFUSION Medications Medications Current Medications Norepinephrine/ Dextrose (Levophed/D5W) 500 ml @ 1.87 mls/hr TITRATE IV Last administered on 04/11/17 05:28; Admin Dose 0.93 MLS/HR; Start 04/07/17 at 20: 00 Miscellaneous Information This patient olson... PRN PRN XX WOUND CARE; Start at 02:30 Linezolid 300 ml @ 300 mls/hr Q12 IVPB Last administered on 04/13/17 08:55; Admin Dose 300 MLS/HR; Start 04/08/17 at 21:00 Fluconazole/ Sodium Chloride (Diflucan 100 Mg/ NS (Pmx)) 50 ml @ 50 mls/hr Q24H IVPB Last administered on 04/12/17 12:50; Admin Dose 50 MLS/HR; Start at 12:00 IV Flush (NS 10 ml) 10 ml PRN PRN IV IV PROTOCOL; Start 04/08/17 at 14:00 Amiodarone HCl 200 mg 200 mg BID NGT Last administered on 04/13/17 08:55; Admin Dose 200 MG; Start 04/08/17 at 21:00 Sodium Chloride (NS) 1,000 ml @ 75 mls/hr [id number] IV Last administered on 00:04; Admin Dose 75 MLS/HR; Start 04/09/17 at 08:30 Sodium Hypochlorite 1 applic 1 applic BID IRR Last administered on 04/13/17 04:00; Admin Dose 1 APPLIC; Start 04/09/17 at 16:00 Meropenem/Sodium Chloride (Merrem 1 Gm/50 ml (Pmx)) 50 ml @ 100 mls/hr Q12 IVPB Last administered on 04/13/17 08:55; Admin Dose 100 MLS/HR; Start 04/11 at 23:00 Hypromellose 2 drop 2 drop BID BOTH EYES Last administered on 04/13/17 08:55 ; Admin Dose 2 DROP; Start 04/12/17 at 21:00 Potassium Chloride/Dextrose (KCl/D5W) 265 ml @ 88.333 mls/ hr Q3H IVPB Last administered on 04/13/17 10:08; Admin Dose 88.333 MLS/HR; Start 04/13/17 at 07:30; Stop 04/13/17 at 13:29 ANA VALDES NP Apr 13, 2017 13:08
[2017-04-13] MEDS: FLUCONAZOLE 100 MG/NS (PMX) 50 ML IVPB SCH (14:07)
--- NOTE | 2017-04-13 14:30 | CONS ---
Date/Time of Note Date/Time of Note DATE: 04/13/17 TIME: 14:27 Assessment/Plan Assessment/Plan Additional Assessment/Plan 1Septic Shock 2 Ventilatory Dependant Respiratory Failure S/p trach 3Healthcare associated PNA 4 Quadriplegia 5 diabetes mellitus 6 dysphagia status post PEG tube 7 Hyporkalemia 8 ARMANDO in the setting of Above 9 Metabolic Acidosis 10 Hypernatremia [id number] on vent non oliguric renal function better d/w nurse [id number] on vent non oliguric /creat increase d/u supportive care [id number] On vent, Non oliguric, Supportive care, Palliative care consulted, No acute indication for HD. Pt is DNR [id number] Non oliguric, Increase free H20, Seen by Palliative care, Will follow at [facility]. Monitor electrolyte, UO and Renal function. Consultation Date/Type/Reason Admit Date/Time Apr 07, 2017 at 18:28 Initial Consult Date 04/08/17 Type of Consultation: Renal Referring Provider: MARLENA CARBAJAL 24 HR Interval Summary Free Text/Dictation Planned for DC to [place] Subjective hx not possible: pt critical status Constitutional: requiring O2 Exam/Review of Systems Vital Signs Vitals Vital Signs Date Time Temp Pulse Resp B/P Pulse Ox O2 Delivery O2 Flow Rate FiO2 04/13/17 12:00 82 04/13/17 11:00 23 96/46 98 Mechanical Ventilator Trach Collar 04/13/17 09:25 40 04/13/17 08:00 97.2 Intake and Output 04/12/17 04/12/17 04/13/17 15:00 23:00 07:00 Intake Total 1107.5 ml 762.5 ml 640 ml Output Total 1000 ml 570 ml 205 ml Balance 107.5 ml 192.5 ml 435 ml Exam ENMT: other (trach) Neck: No jvd Respiratory: crackles/rales, other (vent) Cardiovascular: No edema Gastrointestinal: soft Neurological: unresponsive Skin: No diaphoresis Results Result Diagram: 04/13/17 0416 04/13/17 0416 Results 24 hrs Laboratory Tests Test 04/13/17 04:16 04/13/17 04:39 White Blood Count 16.4 #H Red Blood Count 2.79 L Hemoglobin 8.0 L Hematocrit 25.7 L Mean Corpuscular Volume 92.1 Mean Corpuscular Hemoglobin 28.7 L Mean Corpuscular Hemoglobin Concent 31.1 L Red Cell Distribution Width 15.9 H Platelet Count 105 L Mean Platelet Volume 10.4 Neutrophils % 79.0 H Lymphocytes % 11.5 L Monocytes % 3.5 Eosinophils % 5.2 Basophils % 0.3 Nucleated Red Blood Cells % 0.0 Neutrophils # 13.0 H Lymphocytes # 1.9 Monocytes # 0.6 Eosinophils # 0.9 H Basophils # 0.1 Nucleated Red Blood Cells # 0.0 Sodium Level 149 H Potassium Level 2.7 *L Chloride Level 117 H Carbon Dioxide Level 19 L Anion Gap 16 Blood Urea Nitrogen 48 H Creatinine 2.02 H Glucose Level 160 Calcium Level 8.3 L Phosphorus Level 5.4 H Magnesium Level 1.7 Lab Scanned Report BLOOD TRANSFUSION Medications Medications Current Medications Norepinephrine/ Dextrose (Levophed/D5W) 500 ml @ 1.87 mls/hr TITRATE IV Last administered on 04/11/17 05:28; Admin Dose 0.93 MLS/HR; Start 04/07/17 at 20: 00 Miscellaneous Information This patient olson... PRN PRN XX WOUND CARE; Start at 02:30 Linezolid 300 ml @ 300 mls/hr Q12 IVPB Last administered on 04/13/17 08:55; Admin Dose 300 MLS/HR; Start 04/08/17 at 21:00 Fluconazole/ Sodium Chloride (Diflucan 100 Mg/ NS (Pmx)) 50 ml @ 50 mls/hr Q24H IVPB Last administered on 04/13/17 14:07; Admin Dose 50 MLS/HR; Start at 12:00 IV Flush (NS 10 ml) 10 ml PRN PRN IV IV PROTOCOL; Start 04/08/17 at 14:00 Amiodarone HCl 200 mg 200 mg BID NGT Last administered on 04/13/17 08:55; Admin Dose 200 MG; Start 04/08/17 at 21:00 Sodium Chloride (NS) 1,000 ml @ 75 mls/hr [id number] IV Last administered on 00:04; Admin Dose 75 MLS/HR; Start 04/09/17 at 08:30 Sodium Hypochlorite 1 applic 1 applic BID IRR Last administered on 04/13/17 14:07; Admin Dose 1 APPLIC; Start 04/09/17 at 16:00 Meropenem/Sodium Chloride (Merrem 1 Gm/50 ml (Pmx)) 50 ml @ 100 mls/hr Q12 IVPB Last administered on 04/13/17 08:55; Admin Dose 100 MLS/HR; Start 04/11 at 23:00 Hypromellose (Isopto Tears) 2 drop BID BOTH EYES Last administered on 08:55; Admin Dose 2 DROP; Start 04/12/17 at 21:00 CONCETTA LOCKE MD Apr 13, 2017 14:30
[2017-04-13] MEDS: POTASSIUM CHLORIDE 50 ML IVPB SCH ×2 (16:26→17:42)
--- NOTE | 2017-04-13 16:43 | PDOCDIS ---
Discharge Instructions DIAGNOSIS Discharge Diagnosis 1. Septic shock secondary to Pseudomonas respiratory infection, UTI as well as MDR Klebsiella pneumonia infection of catheter tip 2. Chronic respiratory failure with chronic ventilator dependence from chronic ischemic encephalopathy 3. Debilitated state status post cardiac arrest with likely hypoxic ischemic encephalopathy 4. Status post metabolic acidosis from septic shock 5. Chronic sacral decubitus 6. Paroxysmal atrial fibrillation on amiodarone 7. Acute renal failure rule out chronic kidney disease 8. hypokalemia CONDITION Patient Condition: Guarded (S) HOME CARE INSTRUCTIONS: Special Diet: Isosource at 20 cc/hr with free water flushes 100cc q6hr FOLLOW UP/APPOINTMENTS Follow-up Plan 1. Continue medications as prescribed 2. Continue broad spectrum antibiotics DOUG MCALLISTER MD Apr 13, 2017 16:43
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
--- NOTE | 2017-04-13 19:43 | CONS ---
Date/Time of Note Date/Time of Note DATE: 04/13/17 TIME: 19:40 Assessment/Plan Assessment/Plan Chief Complaint/Hosp Course Anemia - N-CYTIC WITH INCREASED RDW + COMPONENT ACD NO EVIDENCE OF BLEEDING AND HEMOLYSIS POST PRBC PRBC NEEDED TO KEEP HB ABOVE 8 CONT TO MONITOR BLOOD COUNT CLOSELY Persistent leukocytosis- REACTIVE Acute on chronic hypoxemic and hypercapnic respiratory failure. Severe metabolic acidosis. Status post septic shock with multiorgan failure. History of encephalopathy. Problems: Consultation Date/Type/Reason Admit Date/Time Apr 07, 2017 at 18:28 Initial Consult Date 04/11/17 Type of Consultation: hemeon Referring Provider: MARLENA CARBAJAL 24 HR Interval Summary Free Text/Dictation All noted NAD Exam/Review of Systems Vital Signs Vitals Vital Signs Date Time Temp Pulse Resp B/P Pulse Ox O2 Delivery O2 Flow Rate FiO2 04/13/17 19:21 86 25 100 40 04/13/17 19:00 90/59 Mechanical Ventilator Trach Collar 04/13/17 16:00 97.3 Intake and Output 04/12/17 04/12/17 04/13/17 15:00 23:00 07:00 Intake Total 1107.5 ml 762.5 ml 640 ml Output Total 1000 ml 570 ml 205 ml Balance 107.5 ml 192.5 ml 435 ml Exam GENERAL: This is a chronically ill-appearing, middle-aged man who is in no distress. HEENT: Head atraumatic, normocephalic. Sclerae anicteric. Buccal mucosa dry. NECK: Supple. Tracheostomy present. CHEST: Rise symmetrical. Breath sounds with bilateral rhonchi. HEART: S1, S2. ABDOMEN: Soft. Bowel tones hypoactive. EXTREMITIES: Contracted. Results Result Diagram: 04/13/17 0416 04/13/17 1406 Results 24 hrs Laboratory Tests Test 04/13/17 04:16 04/13/17 04:39 04/13/17 13:00 04/13/17 14:06 White Blood Count 16.4 #H Red Blood Count 2.79 L Hemoglobin 8.0 L Hematocrit 25.7 L Mean Corpuscular Volume 92.1 Mean Corpuscular Hemoglobin 28.7 L Mean Corpuscular Hemoglobin Concent 31.1 L Red Cell Distribution Width 15.9 H Platelet Count 105 L Mean Platelet Volume 10.4 Neutrophils % 79.0 H Lymphocytes % 11.5 L Monocytes % 3.5 Eosinophils % 5.2 Basophils % 0.3 Nucleated Red Blood Cells % 0.0 Neutrophils # 13.0 H Lymphocytes # 1.9 Monocytes # 0.6 Eosinophils # 0.9 H Basophils # 0.1 Nucleated Red Blood Cells # 0.0 Sodium Level 149 H Potassium Level 2.7 *L 3.3 L Chloride Level 117 H Carbon Dioxide Level 19 L Anion Gap 16 Blood Urea Nitrogen 48 H Creatinine 2.02 H Glucose Level 160 Calcium Level 8.3 L Phosphorus Level 5.4 H Magnesium Level 1.7 Lab Scanned Report BLOOD TRANSFUSION Stool Occult Blood NEGATIVE Medications Medications Current Medications Norepinephrine/ Dextrose (Levophed/D5W) 500 ml @ 1.87 mls/hr TITRATE IV Last administered on 04/11/17 05:28; Admin Dose 0.93 MLS/HR; Start 04/07/17 at 20: 00 Miscellaneous Information This patient olson... PRN PRN XX WOUND CARE; Start at 02:30 Linezolid 300 ml @ 300 mls/hr Q12 IVPB Last administered on 04/13/17 08:55; Admin Dose 300 MLS/HR; Start 04/08/17 at 21:00 Fluconazole/ Sodium Chloride (Diflucan 100 Mg/ NS (Pmx)) 50 ml @ 50 mls/hr Q24H IVPB Last administered on 04/13/17 14:07; Admin Dose 50 MLS/HR; Start at 12:00 IV Flush (NS 10 ml) 10 ml PRN PRN IV IV PROTOCOL; Start 04/08/17 at 14:00 Amiodarone HCl 200 mg 200 mg BID NGT Last administered on 04/13/17 08:55; Admin Dose 200 MG; Start 04/08/17 at 21:00 Sodium Chloride (NS) 1,000 ml @ 75 mls/hr [id number] IV Last administered on 00:04; Admin Dose 75 MLS/HR; Start 04/09/17 at 08:30 Sodium Hypochlorite 1 applic 1 applic BID IRR Last administered on 04/13/17 14:07; Admin Dose 1 APPLIC; Start 04/09/17 at 16:00 Meropenem/Sodium Chloride (Merrem 1 Gm/50 ml (Pmx)) 50 ml @ 100 mls/hr Q12 IVPB Last administered on 04/13/17 08:55; Admin Dose 100 MLS/HR; Start 04/11 at 23:00 Hypromellose (Isopto Tears) 2 drop BID BOTH EYES Last administered on 08:55; Admin Dose 2 DROP; Start 04/12/17 at 21:00 ZELALEM MEANS MD Apr 13, 2017 19:43
[2017-04-13] MEDS ORDERED: ALTEPLASE (CATHFLO) 2 MG INJ CATHETER PRN (21:04)
[2017-04-13 23:27] LABS: ALBUMIN 1.5 g/dL (3.8-4.8)
== END 2017-04-13 21:04 | DRG 870 ==
LOC: ICU 18:28
PROVIDERS: ADMIT Family Medicine; ATTEND Family Medicine
PROC: 5A1955Z Respiratory Ventilation, Greater than 96 Consecutive Hours (ICD-10-PCS; 2017-04-07)
PROC: 02HV33Z Insertion of Infusion Device into Superior Vena Cava, Percutaneous Approach (ICD-10-PCS; principal; 2017-04-08)
DX: A41.9 Sepsis, unspecified organism (principal); J96.21 Acute and chronic respiratory failure with hypoxia; N17.0 Acute kidney failure with tubular necrosis; R65.21 Severe sepsis with septic shock; G82.50 Quadriplegia, unspecified; J15.1 Pneumonia due to Pseudomonas; L89.154 Pressure ulcer of sacral region, stage 4; J96.22 Acute and chronic respiratory failure with hypercapnia; G93.1 Anoxic brain damage, not elsewhere classified; T80.211A Bloodstream infection due to central venous catheter, initial encounter; Z99.11 Dependence on respirator [ventilator] status; N39.0 Urinary tract infection, site not specified; E87.4 Mixed disorder of acid-base balance; R40.3 Persistent vegetative state; E87.0 Hyperosmolality and hypernatremia; I48.0 Paroxysmal atrial fibrillation; Z93.0 Tracheostomy status; Z93.1 Gastrostomy status; N40.0 Benign prostatic hyperplasia without lower urinary tract symptoms; E87.5 Hyperkalemia; E83.42 Hypomagnesemia; I27.20 Pulmonary hypertension, unspecified; L89.150 Pressure ulcer of sacral region, unstageable; Y83.8 Other surgical procedures as the cause of abnormal reaction of the patient, or of later complication, without mention of misadventure at the time of the procedure; Y92.89 Other specified places as the place of occurrence of the external cause; I12.9 Hypertensive chronic kidney disease with stage 1 through stage 4 chronic kidney disease, or unspecified chronic kidney disease; N18.9 Chronic kidney disease, unspecified; E11.22 Type 2 diabetes mellitus with diabetic chronic kidney disease; E87.6 Hypokalemia; D64.9 Anemia, unspecified; R53.81 Other malaise; R19.7 Diarrhea, unspecified; Z86.74 Personal history of sudden cardiac arrest; Z66 Do not resuscitate
CPT/HCPCS: 36430; 36569; 36600; 71010; 72020; 72050; 76775; 76937; 80048; 80053; 80076; 81001; 81003; 82043; 82270; 82306; 82553; 82607; 82668; 82728; 82746; 82803; 82962; 83010; 83540; 83605; 83615; 83735; 84100; 84132; 84155; 84165; 84300; 84443; 84484; 84560; 85025; 85045; 85651; 86850; 86900; 86901; 86920; 87040; 87070; 87075; 87081; 87086; 89220; 94003; 94640; 94799; J1450; J1815; J2185; J2543; J3370; J3475; J3480; J7030; J7050; J7060; J7070; P9016